=== PATIENT | female | born 1950 | race Caucasian/White ===

== ENCOUNTER 2017-10-19 01:31 | Emergency (ER) | payer OTHER ==
[2017-10-19 02:30] LABS: Protime INR 0.98
[2017-10-19 02:31] LABS: Absolute Lymphocytes (CBC) 2.2 K/uL (0.7-4.9); Absolute Monocytes 0.7 K/uL (0.1-1.3); Absolute Neutrophil 6.4 K/uL (1.8-8.0); Basophils % 1.2 % (0-1.3); Eosinophils % 3.7 % (0-4.4); Hematocrit 38.4 % (36.0-45.0); Lymphocytes % 22.9 % (15.3-44.8); MCH 26.8 pg (27.0-35.0); MCV 83.6 fL (80-100); MPV 9.3 fL (7.6-11.3); Monocytes % 7.3 % (3.3-12.3); RBC Red Blood Cell Count 4.59 M/uL (3.86-4.86)
[2017-10-19 02:39] LABS: Bicarbonate 26 mEq/L (21-31); Glucose Level 360 mg/dL (65-120); Potassium 3.7 mEq/L (3.6-5.0); Sodium Level 135 mEq/L (135-145)
[2017-10-19 02:45] LABS: ALT/SGPT 15 IU/L (10-60); AST/SGOT 19 IU/L (10-42); Albumin 3.4 g/dL (3.2-5.5); Alkaline Phosphatase 67 IU/L (42-121); BUN Blood Urea Nitrogen 23 mg/dL (6-20); Bilirubin Direct < 0.1 mg/dL (0-0.2); Bilirubin Total 0.5 mg/dL (0.3-1.2); Creatine Phosphokinase 61 IU/L (22-269); Magnesium 1.5 mg/dL (1.8-2.5); Protein, Total 7.1 g/dL (6.0-8.3)
[2017-10-19 02:48] LABS: CKMB Creatine Kinase MB 1.2 ng/ml (0.3-4.0)
--- NOTE | 2017-10-19 03:14 | ER ---
Nurse's Notes [facility] Name: Bertha Jones Age: 67 yrs Sex: Female : 1950 Arrival Date: 10/19/2017 Time: 01:34 Bed 6 Private MD: Diagnosis: Bronchitis, not specified as acute or chronic Presentation: 10/19 01:35 Presenting complaint: Patient states: that at 2200 last night she started to have fc shortness of breath. Also having some right arm numbness. Denies any nausea or vomiting. Transition of care: patient was not received from another setting of care. Onset of symptoms was October 18, 2017 at 22:00. Initial Sepsis Screen: Does the patient meet any 2 criteria? RR > 20 per min. Yes Does the patient have a suspected source of infection? No. Patient's initial sepsis screen is negative. Care prior to arrival: None. 01:35 Method Of Arrival: Ambulatory fc 01:35 Acuity: MACK 3 fc Historical: - Allergies: :53 No Known Allergies; fc - Home Meds: 01:53 amlodipine 10 mg tab 1 tab once daily [Active]; lisinopril 40 mg Oral tab 1 tab once fc daily [Active]; Zoloft 50 mg Oral tab 1 tab once daily [Active]; levothyroxine 88 mcg tab 1 tab once daily [Active]; aspirin 325 mg Oral TbEC 1 tab once daily [Active]; pravastatin 80 mg oral tab 1 tab nightly [Active]; Cymbalta 60 mg oral cpDR 1 cap nightly [Active]; pantoprazole 40 mg oral TbEC 1 tab nightly [Active]; gabapentin 300 mg oral cap 2 caps 3 times per day [Active]; melatonin 5 mg Oral tab as needed [Active]; Nasacort 55 mcg Nasal spra as needed [Active]; Vitamin B-12 1,000 mcg Oral tab daily [Active]; Vitamin D Oral 2000 unit daily [Active]; turmeric curcumin 1 tablet daily [Active]; biotin 10,000 mcg oral cap daily [Active]; - PMHx: 01:53 Diabetes - NIDDM; High Cholesterol; Hypertension; Diverticulitis; viral menigitus; fc Tachycardia; Hypothyroidism; Depression; - PSHx: 01:53 Cataracts; Hysterectomy; Cholecystectomy; fc - Immunization history:: Last tetanus immunization: up to date. - Social history:: Smoking status: Patient/guardian denies using tobacco, Patient/guardian denies using alcohol, street drugs, The patient lives with family. - Family history:: not pertinent. Screenin:35 Abuse screen: Denies threats or abuse. Nutritional screening: No deficits noted. fc Tuberculosis screening: No symptoms or risk factors identified. Fall Risk None identified. Assessment: 02:19 General: Appears in no apparent distress. Behavior is calm, cooperative, appropriate lp1 for age. Pain: Denies pain. Neuro: Level of Consciousness is awake, alert, obeys commands, Oriented to person, place, time, situation. Cardiovascular: Patient's skin is warm and dry. Respiratory: Reports shortness of breath cough that is productive, Airway is patent Respiratory effort is even, unlabored, Respiratory pattern is regular, symmetrical, Breath sounds are diminished bilaterally. Onset: The symptoms/episode began/occurred gradually, the patient has mild shortness of breath. GI: Abdomen is obese. : No signs and/or symptoms were reported regarding the genitourinary system. EENT: No signs and/or symptoms were reported regarding the EENT system. Derm: Skin is pink, warm \T\ dry. Musculoskeletal: Circulation, motion, and sensation intact. 03:38 Cardiovascular: Rhythm is regular. ak1 Vital Signs: 01:35 BP 155 / 76; Pulse 60; Resp 22; Temp 98.6(O); Pulse Ox 99% on R/A; Weight 95.25 kg (R); fc Height 5 ft. 5 in. (165.10 cm) (R); Pain 4/10; 03:37 BP 142 / 62; Pulse 53; Resp 18; Temp 98.6; Pulse Ox 99% on R/A; ak1 01:35 Body Mass Index 34.95 (95.25 kg, 165.10 cm) fc ED Course: 01:34 Patient arrived in ED. al2 01:35 Arm band placed on Patient placed in an exam room, on a stretcher. fc 01:35 Patient has correct armband on for positive identification. Placed in gown. Bed in low fc position. Call light in reach. 01:46 Triage completed. fc 01:56 Shahana Munson MD is Attending Physician. ma2 02:27 X-ray completed. Portable x-ray completed in exam room. Patient tolerated procedure kw well. 02:27 XRAY Chest (1 view) In Process Unspecified. EDMS 03:01 Melisa Hussein, RN is Primary Nurse. lp1 03:36 No provider procedures requiring assistance completed. Patient did not have IV access ak1 during this emergency room visit. Administered Medications: No medications were administered Outcome: 03:13 Discharge ordered by . ma2 03:38 Discharged to home ambulatory, with friend. ak1 03:38 Condition: good 03:38 Discharge instructions given to patient, friend, Instructed on discharge instructions, follow up and referral plans. medication usage, Demonstrated understanding of instructions, follow-up care, medications, Prescriptions given X 2. 03:39 Patient left the ED. ak1 Signatures: Dispatcher [employer] EDDE Bhavana Obregon RN RN fc Whitley, Kimberlee kw Pena, Laura, RN RN [email or web address] Zee Mcclendon RN RN [email or web address] Camilla Mckenna Mohammad, MD MD ma2 Corrections: (The following items were deleted from the chart) 02:23 02:19 Respiratory: Airway is patent Respiratory effort is even, unlabored, Respiratory lp1 pattern is regular, symmetrical, Breath sounds are diminished bilaterally. lp1 03:07 02:19 Respiratory: Airway is patent Respiratory effort is even, unlabored, Respiratory lp1 pattern is regular, symmetrical, Breath sounds are diminished bilaterally. Onset: The symptoms/episode began/occurred gradually, the patient has mild shortness of breath lp1
--- NOTE | 2017-10-19 03:14 | EDPHYS ---
Physician Documentation [facility] Name: Bertha Jones Age: 67 yrs Sex: Female : 1950 Arrival Date: 10/19/2017 Time: 01:34 Bed 6 Private MD: ED Physician Shahana Munson HPI: 10/19 02:16 This 67 yrs old Female presents to ER via Ambulatory with complaints of ma2 Breathing Difficulty, R ARM NUMBNESS. 02:16 The patient has shortness of breath with light activity. The patient has shortness of ma2 breath during heavy activity. Onset: The symptoms/episode began/occurred gradually, 1 day(s) ago. Duration: The symptoms are continuous. Associated signs and symptoms: Pertinent positives: non-productive cough, Pertinent negatives: chest pain. The patient has not experienced similar symptoms in the past. Historical: - Allergies: :53 No Known Allergies; fc - Home Meds: :53 amlodipine 10 mg tab 1 tab once daily [Active]; lisinopril 40 mg Oral tab 1 tab once fc daily [Active]; Zoloft 50 mg Oral tab 1 tab once daily [Active]; levothyroxine 88 mcg tab 1 tab once daily [Active]; aspirin 325 mg Oral TbEC 1 tab once daily [Active]; pravastatin 80 mg oral tab 1 tab nightly [Active]; Cymbalta 60 mg oral cpDR 1 cap nightly [Active]; pantoprazole 40 mg oral TbEC 1 tab nightly [Active]; gabapentin 300 mg oral cap 2 caps 3 times per day [Active]; melatonin 5 mg Oral tab as needed [Active]; Nasacort 55 mcg Nasal spra as needed [Active]; Vitamin B-12 1,000 mcg Oral tab daily [Active]; Vitamin D Oral 2000 unit daily [Active]; turmeric curcumin 1 tablet daily [Active]; biotin 10,000 mcg oral cap daily [Active]; - PMHx: 01:53 Diabetes - NIDDM; High Cholesterol; Hypertension; Diverticulitis; viral menigitus; fc Tachycardia; Hypothyroidism; Depression; - PSHx: 01:53 Cataracts; Hysterectomy; Cholecystectomy; fc - Immunization history:: Last tetanus immunization: up to date. - Social history:: Smoking status: Patient/guardian denies using tobacco, Patient/guardian denies using alcohol, street drugs, The patient lives with family. - Family history:: not pertinent. ROS: 02:16 Constitutional: Negative for fever, chills, and weight loss. ma2 02:16 Respiratory: Positive for cough, Negative for dyspnea on exertion, orthopnea, pleurisy, wheezing, acute changes. 02:16 All other systems are negative. Exam: 02:16 Constitutional: This is a well developed, well nourished patient who is awake, alert, ma2 and in no acute distress. Head/Face: Normocephalic, atraumatic. Chest/axilla: Normal chest wall appearance and motion. Nontender with no deformity. No lesions are appreciated. Cardiovascular: Regular rate and rhythm with a normal S1 and S2. No gallops, murmurs, or rubs. Normal PMI, no JVD. No pulse deficits. Respiratory: Lungs have equal breath sounds bilaterally, clear to auscultation and percussion. No rales, rhonchi or wheezes noted. No increased work of breathing, no retractions or nasal flaring. Abdomen/GI: Soft, non-tender, with normal bowel sounds. No distension or tympany. No guarding or rebound. No evidence of tenderness throughout. Neuro: Awake and alert, GCS 15, oriented to person, place, time, and situation. Cranial nerves II-XII grossly intact. Motor strength 5/5 in all extremities. Sensory grossly intact. Cerebellar exam normal. Normal gait. Vital Signs: 01:35 BP 155 / 76; Pulse 60; Resp 22; Temp 98.6(O); Pulse Ox 99% on R/A; Weight 95.25 kg (R); fc Height 5 ft. 5 in. (165.10 cm) (R); Pain 4/10; 03:37 BP 142 / 62; Pulse 53; Resp 18; Temp 98.6; Pulse Ox 99% on R/A; ak1 01:35 Body Mass Index 34.95 (95.25 kg, 165.10 cm) fc MDM: 01:56 Patient medically screened. ma2 02:16 Differential diagnosis: Anemia Anxiety Reaction Bronchitis CHF exacerbation, pneumonia, ma2 pulmonary edema. 03:12 Antibiotic administration: The patient is discharged and will get outpatient ma2 antibiotics, Zithromax. The patient's pulmonary embolism risk score was calculated as follows: No Risks (0 Pts). Data reviewed: vital signs, nurses notes, EKG, radiologic studies. Counseling: I had a detailed discussion with the patient and/or guardian regarding: the historical points, exam findings, and any diagnostic results supporting the discharge/admit diagnosis, the presence of at least one elevated blood pressure reading (>120/80) during this emergency department visit, the need for outpatient follow up, for definitive care. 10/19 02:11 Order name: Basic Metabolic Panel; Complete Time: 03:11 10/19 02:11 Order name: BNP 10/19 02:11 Order name: CBC with Diff; Complete Time: 03:11 10/19 02:11 Order name: Ckmb; Complete Time: 03:11 10/19 02:11 Order name: CPK; Complete Time: 03:11 10/19 02:11 Order name: LFT's; Complete Time: 03:11 10/19 02:11 Order name: Magnesium; Complete Time: 03:11 10/19 02:11 Order name: PT-INR; Complete Time: 03:11 10/19 02:11 Order name: Ptt, Activated; Complete Time: 03:11 10/19 02:11 Order name: Troponin (emerg Dept Use Only); Complete Time: 03:11 10/19 02:11 Order name: XRAY Chest (1 view) 10/19 02:11 Order name: EKG; Complete Time: 02:12 10/19 02:11 Order name: Cardiac monitoring; Complete Time: 03:01 10/19 02:11 Order name: EKG - Nurse/Tech; Complete Time: 03:01 10/19 02:11 Order name: Labs collected and sent; Complete Time: 03:10/19 02:11 Order name: O2 Per Protocol; Complete Time: 03:01 10/19 02:11 Order name: O2 Sat Monitoring; Complete Time: 03:01 Administered Medications: No medications were administered Disposition: 10/19/17 03:13 Discharged to Home. Impression: Bronchitis, not specified as acute or chronic. - Condition is Stable. - Discharge Instructions: Acute Bronchitis. - Prescriptions for Zithromax Z- Axel 250 mg Oral Tablet - take 1 tablet by ORAL route as directed for 5 days Day 1 - take two (2) tablets one time. Day 2, 3, 4 , 5 take one (1) tablet once daily.; 6 tablet. Albuterol Sulfate 90 mcg/actuation - inhale 1-2 puff by INHALATION route every 4-6 hours; 1 Inhaler. - Medication Reconciliation Form, Thank You Letter, Antibiotic Education, Prescription Opioid Use form. - Follow up: Private Physician; When: Tomorrow; Reason: Continuance of care. - Problem is new. - Symptoms are unchanged. Signatures: Dispatcher [employer] EDAK Bhavana Obregon RN RN Zee Arriola RN RN ak1 Shahana Munson MD MD ma2 Corrections: (The following items were deleted from the chart) 03:16 02:11 IV Saline Lock ordered. nc2 lp1 03:27 02:11 Urine Dipstick-Ancillary ordered. nc2 lp1 03:39 03:13 10/19/2017 03:13 Discharged to Home. Impression: Bronchitis, not specified as ak1 acute or chronic. Condition is Stable. Forms are Medication Reconciliation Form, Thank You Letter, Antibiotic Education, Prescription Opioid Use. Follow up: Private Physician; When: Tomorrow; Reason: Continuance of care. Problem is new. Symptoms are unchanged. ma2
[2017-10-19 03:43] VITALS: TEMP 98.6; O2SAT 99
[2017-10-19 03:44] VITALS: BP 142/62
--- NOTE | 2017-10-19 06:54 | EKG ---
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
--- NOTE | 2017-10-19 08:14 | RAD REPORT ---
EXAM DESCRIPTION: Mayra Single View10/19/2017 2:30 am CLINICAL HISTORY: Cough COMPARISON: February 2017 FINDINGS: The lungs appear clear of acute infiltrate. The heart is borderline enlarged IMPRESSION: No acute abnormalities displayed
== END 2017-10-19 03:39 | disposition home or self-care (01) ==
LOC: ER 01:31
DX: J40 Bronchitis, not specified as acute or chronic (principal); E03.9 Hypothyroidism, unspecified; I10 Essential (primary) hypertension; E11.9 Type 2 diabetes mellitus without complications; E78.00 Pure hypercholesterolemia, unspecified; Z79.82 Long term (current) use of aspirin
CPT/HCPCS: 36415; 71045; 80048; 80076; 82550; 82553; 83735; 83880; 84484; 85025; 85610; 85730; 93005; 99283

== ENCOUNTER 2018-02-09 18:07 | Inpatient (IN) | payer OTHER ==
--- NOTE | 2018-02-09 19:07 | RAD REPORT ---
EXAM DESCRIPTION: RAD - Chest Single View - 02/09/2018 6:47 pm CLINICAL HISTORY: DYSPNEA Chest pain. COMPARISON: Chest Single View dated 10/19/2017; Chest Single View dated 02/24/2017; CHEST PA AND LAT 2 VIEW dated 03/06/2014; CHEST SINGLE VIEW dated 11/20/2012 FINDINGS: Portable technique limits examination quality. Mild interstitial pulmonary opacities are present. The heart is mildly prominent size. No displaced f ractures. IMPRESSION: Mild interstitial pneumonia versus CHF.
[2018-02-09 19:50] LABS: Absolute Lymphocytes (CBC) 2.2 K/uL (0.7-4.9); Absolute Monocytes 0.9 K/uL (0.1-1.3); Absolute Neutrophil 6.1 K/uL (1.8-8.0); Basophils % 1.2 % (0-1.3); Eosinophils % 3.4 % (0-4.4); Hematocrit 33.8 % (36.0-45.0); Lymphocytes % 22.5 % (15.3-44.8); MCH 27.7 pg (27.0-35.0); MCV 84.3 fL (80-100); MPV 9.7 fL (7.6-11.3); Monocytes % 9.6 % (3.3-12.3)
[2018-02-09 19:52] LABS: Protime INR 1.05
[2018-02-09 20:09] LABS: Albumin 3.2 g/dL (3.4-5.0); Bilirubin Direct 0.2 mg/dL (0-0.2); Bilirubin Total 0.6 mg/dL (0.2-1.0); Magnesium 1.8 mg/dL (1.8-2.4); Protein, Total 7.7 g/dL (6.4-8.2)
--- NOTE | 2018-02-09 20:25 | ER ---
Nurse's Notes [facility] Name: Bertha Jones Age: 67 yrs Sex: Female : 1950 Arrival Date: 02/09/2018 Time: 18:11 Bed 16 Private MD: Rhys Taylor Diagnosis: Acute combined systolic (congestive) and diastolic (congestive) heart failure;Pneumonia due to other specified bacteria Presentation: 02/09 18:19 Presenting complaint: Patient states: january i was dx with pneumonia, since then ch i don't feel any better. SOB, cough, congestion, no energy, occasional pain in R side of chest, nausea, cough so hard i vomit. Transition of care: patient was not received from another setting of care. Onset of symptoms was January 15, 2018. Risk Assessment: Do you want to hurt yourself or someone else? Patient reports no desire to harm self or others. Initial Sepsis Screen: Does the patient meet any 2 criteria? No. Patient's initial sepsis screen is negative. Does the patient have a suspected source of infection? No. Patient's initial sepsis screen is negative. Care prior to arrival: None. 18:19 Method Of Arrival: Ambulatory 18:19 Acuity: MACK 3 ch Historical: - Allergies: 18:23 No Known Allergies; ch - Home Meds: 18:23 Albuterol Nebulizer [Active]; amlodipine 10 mg tab 1 tab once daily [Active]; aspirin ch 325 mg Oral TbEC 1 tab once daily [Active]; robitussin AC [Active]; gabapentin 300 mg Oral cap 2 caps 3 times per day [Active]; Humulin 70/30 100 unit/mL (70-30) Sub-Q susp [Active]; levofloxacin Oral [Active]; levothyroxine 88 mcg tab 1 tab once daily [Active]; lisinopril 40 mg Oral tab 1 tab once daily [Active]; metoprolol tartrate 100 mg Oral tab 1 tab once daily [Active]; Nasonex 50 mcg/actuation Nasal spry 2 sprays once daily [Active]; pantoprazole 40 mg oral TbEC 1 tab once daily [Active]; pravastatin 80 mg Oral tab 1 tab nightly [Active]; Robaxin 500 mg Oral tab 2 tabs 4 times per day [Active]; Zoloft 50 mg Oral tab 1 tab once daily [Active]; - PMHx: 18:23 Depression; Diabetes - NIDDM; Diverticulitis; High Cholesterol; Hypertension; ch Hypothyroidism; Tachycardia; viral menigitus; Pneumonia; - PSHx: 18:23 Cataracts; Hysterectomy; Cholecystectomy; ch - Immunization history:: Adult Immunizations up to date. - Social history:: Smoking status: Patient/guardian denies using tobacco, Patient/guardian denies using alcohol, street drugs. - Ebola Screening: : Patient negative for fever greater than or equal to 101.5 degrees Fahrenheit, and additional compatible Ebola Virus Disease symptoms Patient denies exposure to infectious person Patient denies travel to an Ebola-affected area in the 21 days before illness onset No symptoms or risks identified at this time. Screenin:00 Abuse screen: Denies threats or abuse. jb4 19:00 Nutritional screening: No deficits noted. Tuberculosis screening: No symptoms or risk jb4 factors identified. Fall Risk None identified. Assessment: 19:00 General: Appears in no apparent distress. comfortable, Behavior is calm, cooperative, jb4 appropriate for age. Pain: Denies pain. Neuro: Level of Consciousness is awake, alert, obeys commands, Oriented to person, place, time. Cardiovascular: Denies chest pain, Heart tones S1 S2 present Patient's skin is warm and dry. Rhythm is sinus rhythm. Respiratory: Reports shortness of breath on exertion cough that is non-productive, Airway is patent Respiratory effort is even, unlabored, Breath sounds are clear bilaterally. GI: Abdomen is round Bowel sounds present X 4 quads. Abd is soft and non tender X 4 quads. : No signs and/or symptoms were reported regarding the genitourinary system. EENT: No signs and/or symptoms were reported regarding the EENT system. Derm: Skin is intact, Skin is pink, warm \\T\\ dry. Musculoskeletal: No signs and/or symptoms reported regarding the musculoskeletal system. 20:00 Reassessment: Patient appears in no apparent distress at this time. Patient and/or aa1 family updated on plan of care and expected duration. Pain level reassessed. Patient is alert, oriented x 3, equal unlabored respirations, skin warm/dry/pink. Awaiting lab results. 21:29 Reassessment: Patient appears in no apparent distress at this time. Patient and/or aa1 family updated on plan of care and expected duration. Pain level reassessed. Patient is alert, oriented x 3, equal unlabored respirations, skin warm/dry/pink. Awaiting bed assignment. 21:45 Reassessment: Pt states "I feel weak and jittery like my blood sugar is low." BS was jb4 114. Pt reports the BS is low for her. Provider notified. Juice and snack provided. 23:00 Reassessment: Patient appears in no apparent distress at this time. Patient and/or jb4 family updated on plan of care and expected duration. Pain level reassessed. Patient is alert, oriented x 3, equal unlabored respirations, skin warm/dry/pink. Pt reports feeling better after juice and a snack. BS is 133. Vital Signs: 18:23 BP 137 / 68; Pulse 52; Resp 14; Temp 99.6; Pulse Ox 97% on R/A; Weight 93.89 kg; Height 5 ft. 5 in. (165.10 cm); Pain 5/10; 19:30 BP 127 / 61; Pulse 56; Resp 20; Pulse Ox 96% on 2 lpm NC; Pain 0/10; aa1 20:30 BP 146 / 93; Pulse 56; Resp 18; Pulse Ox 98% on 2 lpm NC; aa1 21:27 BP 144 / 76; Pulse 57; Resp 20; Temp 98.7; Pulse Ox 99% on 2 lpm NC; Pain 0/10; aa1 22:45 BP 161 / 82; Pulse 53; Resp 20; Pulse Ox 97% on 2 lpm NC; Pain 0/10; jb4 18:23 Body Mass Index 34.45 (93.89 kg, 165.10 cm) ED Course: 18:11 Patient arrived in ED. sb2 18:11 Rhys Taylor MD is Private Physician. sb2 18:20 Triage completed. 18:23 Arm band placed on left wrist. Patient placed in an exam room, on a stretcher. 18:27 Aristides Lawrence PA is PHCP. jr8 18:27 Joaquin Mukherjee MD is Attending Physician. jr8 18:45 XRAY Chest (1 view) In Process Unspecified. EDMS 18:47 X-ray completed. Portable x-ray completed in exam room. Patient tolerated procedure az well. 19:00 Patient has correct armband on for positive identification. Placed in gown. Bed in low jb4 position. Call light in reach. Side rails up X 1. hot dip plater on. Pulse ox on. NIBP on. 19:10 Initial lab(s) drawn, by me, sent to lab. Inserted saline lock: 20 gauge in left jb4 forearm, using aseptic technique. Blood collected. 20:25 Shahana Chester MD is Hospitalizing Provider. jr8 20:28 Griffin Aquino, RN is Primary Nurse. jb4 23:31 No provider procedures requiring assistance completed. Patient admitted, IV remains in jb4 place. Administered Medications: 20:35 Drug: Lasix 40 mg Route: IVP; Site: left forearm; jb4 21:34 Follow up: Response: No adverse reaction jb4 20:37 Drug: Rocephin 1 grams Route: IV; Rate: calculated rate; Site: left forearm; jb4 20:39 Follow up: IV Status: Completed infusion; given IVP per pharmacy protocol. jb4 21:34 Follow up: Response: No adverse reaction jb4 20:42 Drug: Zithromax 500 mg Route: IVPB; Infused Over: 1 hrs; Site: left forearm; jb4 21:55 Follow up: Response: No adverse reaction aa1 21:55 Follow up: IV Status: Completed infusion aa1 21:32 Drug: Lovenox 1 mg/kg Route: Sub-Q; Site: left lower abdomen; jb4 22:00 Follow up: Response: No adverse reaction aa1 Intake: Outcome: 20:25 Decision to Hospitalize by Provider. jr8 23:30 Admitted to Med/surg accompanied by nurse, via wheelchair, room 218, Report called to italo Matthews RN 23:30 Condition: stable jb 23:30 Instructed on the need for admit, Demonstrated understanding of instructions. 23:41 Patient left the ED. 4 Signatures: Dispatcher [employer] EDMS Yoko Cornejo RN RN ch Kern, Alissa, RN RN aa1 Aristides Lawrence PA PA jr8 Griffin Aquino RN RN jb4 Fadumo Coreas sb2 Angie Enriquez Corrections: (The following items were deleted from the chart) 21:35 19:00 Cardiovascular: Denies chest pain, Heart tones S1 S2 present Patient's skin is jb4 warm and dry. jb4 23:06 23:02 Reassessment: Patient appears in no apparent distress at this time. Patient jb4 and/or family updated on plan of care and expected duration. Pain level reassessed. Patient is alert, oriented x 3, equal unlabored respirations, skin warm/dry/pink. Pt reports feeling better after juice and snacks. BS is now 133. aa1 23:13 22:45 BP 161 / 82; Pulse 53bpm; Resp 18bpm; Pulse Ox 97% 2 lpm Nasal Cannula; Pain jb4 0/10; aa1
--- NOTE | 2018-02-09 20:25 | EDPHYS ---
Physician Documentation [facility] Name: Bertha Jones Age: 67 yrs Sex: Female : 1950 Arrival Date: 02/09/2018 Time: 18:11 Bed 16 Private MD: Rhys Taylor ED Physician Joaquin Mukherjee HPI: 02/09 20:00 This 67 yrs old Female presents to ER via Ambulatory with complaints of jr8 Breathing Difficulty, Chest Congestion, Fever. 20:00 The patient has shortness of breath at rest, with light activity. Onset: The jr8 symptoms/episode began/occurred gradually, 1 week(s) ago, and became worse and became persistent. Duration: The symptoms are continuous. The patient's shortness of breath is aggravated by coughing, walking. Associated signs and symptoms: Pertinent positives: productive cough, fever. Severity of symptoms: At their worst the symptoms were moderate in the emergency department the symptoms are unchanged. The patient has not experienced similar symptoms in the past. The patient has been recently seen by a physician:. Patient stated that she was treated for pneumonia earlier this month. Stated that she felt somewhat better but not completely back to normal. Stated that within the past week started to feel bad again and is now very short of breath. Recent travel to [place] . Historical: - Allergies: 18:23 No Known Allergies; ch - Home Meds: 18:23 Albuterol Nebulizer [Active]; amlodipine 10 mg tab 1 tab once daily [Active]; aspirin ch 325 mg Oral TbEC 1 tab once daily [Active]; robitussin AC [Active]; gabapentin 300 mg Oral cap 2 caps 3 times per day [Active]; Humulin 70/30 100 unit/mL (70-30) Sub-Q susp [Active]; levofloxacin Oral [Active]; levothyroxine 88 mcg tab 1 tab once daily [Active]; lisinopril 40 mg Oral tab 1 tab once daily [Active]; metoprolol tartrate 100 mg Oral tab 1 tab once daily [Active]; Nasonex 50 mcg/actuation Nasal spry 2 sprays once daily [Active]; pantoprazole 40 mg oral TbEC 1 tab once daily [Active]; pravastatin 80 mg Oral tab 1 tab nightly [Active]; Robaxin 500 mg Oral tab 2 tabs 4 times per day [Active]; Zoloft 50 mg Oral tab 1 tab once daily [Active]; - PMHx: 18:23 Depression; Diabetes - NIDDM; Diverticulitis; High Cholesterol; Hypertension; ch Hypothyroidism; Tachycardia; viral menigitus; Pneumonia; - PSHx: 18:23 Cataracts; Hysterectomy; Cholecystectomy; ch - Immunization history:: Adult Immunizations up to date. - Social history:: Smoking status: Patient/guardian denies using tobacco, Patient/guardian denies using alcohol, street drugs. - Ebola Screening: : Patient negative for fever greater than or equal to 101.5 degrees Fahrenheit, and additional compatible Ebola Virus Disease symptoms Patient denies exposure to infectious person Patient denies travel to an Ebola-affected area in the 21 days before illness onset No symptoms or risks identified at this time. ROS: 20:00 Eyes: Negative for injury, pain, redness, and discharge, ENT: Negative for injury, jr8 pain, and discharge, Neck: Negative for injury, pain, and swelling, Cardiovascular: Negative for chest pain, palpitations, and edema, Abdomen/GI: Negative for abdominal pain, nausea, vomiting, diarrhea, and constipation, Back: Negative for injury and pain, MS/Extremity: Negative for injury and deformity, Skin: Negative for injury, rash, and discoloration, Neuro: Negative for headache, weakness, numbness, tingling, and seizure. 20:00 Respiratory: Positive for cough, dyspnea on exertion, shortness of breath. Exam: 20:00 Eyes: Pupils equal round and reactive to light, extra-ocular motions intact. Lids and jr8 lashes normal. Conjunctiva and sclera are non-icteric and not injected. Cornea within normal limits. Periorbital areas with no swelling, redness, or edema. ENT: Nares patent. No nasal discharge, no septal abnormalities noted. Tympanic membranes are normal and external auditory canals are clear. Oropharynx with no redness, swelling, or masses, exudates, or evidence of obstruction, uvula midline. Mucous membranes moist. Neck: Trachea midline, no thyromegaly or masses palpated, and no cervical lymphadenopathy. Supple, full range of motion without nuchal rigidity, or vertebral point tenderness. No Meningismus. Cardiovascular: Regular rate and rhythm with a normal S1 and S2. No gallops, murmurs, or rubs. Normal PMI, no JVD. No pulse deficits. Abdomen/GI: Soft, non-tender, with normal bowel sounds. No distension or tympany. No guarding or rebound. No evidence of tenderness throughout. Back: No spinal tenderness. No costovertebral tenderness. Full range of motion. Skin: Warm, dry with normal turgor. Normal color with no rashes, no lesions, and no evidence of cellulitis. MS/ Extremity: Pulses equal, no cyanosis. Neurovascular intact. Full, normal range of motion. Neuro: Awake and alert, GCS 15, oriented to person, place, time, and situation. Cranial nerves II-XII grossly intact. Motor strength 5/5 in all extremities. Sensory grossly intact. Cerebellar exam normal. Normal gait. 20:00 Respiratory: the patient does not display signs of respiratory distress, Respirations: tachypnea, that is mild, Breath sounds: are clear throughout. Vital Signs: 18:23 BP 137 / 68; Pulse 52; Resp 14; Temp 99.6; Pulse Ox 97% on R/A; Weight 93.89 kg; Height ch 5 ft. 5 in. (165.10 cm); Pain 5/10; 19:30 BP 127 / 61; Pulse 56; Resp 20; Pulse Ox 96% on 2 lpm NC; Pain 0/10; aa1 20:30 BP 146 / 93; Pulse 56; Resp 18; Pulse Ox 98% on 2 lpm NC; aa1 21:27 BP 144 / 76; Pulse 57; Resp 20; Temp 98.7; Pulse Ox 99% on 2 lpm NC; Pain 0/10; aa1 22:45 BP 161 / 82; Pulse 53; Resp 20; Pulse Ox 97% on 2 lpm NC; Pain 0/10; jb4 18:23 Body Mass Index 34.45 (93.89 kg, 165.10 cm) ch MDM: 18:27 Patient medically screened. jr8 20:23 Data reviewed: vital signs, nurses notes, lab test result(s), radiologic studies, plain jr8 films, and as a result, I will admit patient. Data interpreted: Pulse oximetry: on room air is 97 %. Interpretation: normal. Counseling: I had a detailed discussion with the patient and/or guardian regarding: the historical points, exam findings, and any diagnostic results supporting the discharge/admit diagnosis, lab results, radiology results, the need for further work-up and treatment in the hospital. 02/09 18:28 Order name: Basic Metabolic Panel; Complete Time: 20:11 [facility] 02/09 18:28 Order name: CBC with Diff; Complete Time: 19:56 02/09 18:28 Order name: LFT's; Complete Time: 20:11 02/09 18:28 Order name: Magnesium; Complete Time: 20:11 [facility] 02/09 18:28 Order name: NT PRO-BNP; Complete Time: 20:11 02/09 18:28 Order name: PT-INR; Complete Time: 19:57 02/09 18:28 Order name: XRAY Chest (1 view); Complete Time: 19:33 02/09 18:28 Order name: Blood Culture Adult (2) 02/09 18:28 Order name: Procalcitonin; Complete Time: 21:24 02/09 19:33 Order name: Troponin (emerg Dept Use Only); Complete Time: 21:03 [facility] 02/09 21:03 Order name: Urine Dipstick--Ancillary (enter results); Complete Time: 21:24 mi 02/09 18:28 Order name: EKG; Complete Time: 18:29 02/09 18:28 Order name: Cardiac monitoring; Complete Time: 18:39 02/09 18:28 Order name: EKG - Nurse/Tech; Complete Time: 19:24 02/09 18:28 Order name: IV Saline Lock; Complete Time: 21:25 [facility] 02/09 18:28 Order name: Labs collected and sent; Complete Time: 21:26 02/09 18:28 Order name: O2 Per Protocol; Complete Time: 18:39 02/09 18:28 Order name: O2 Sat Monitoring; Complete Time: 18:39 02/09 18:28 Order name: Urine Dipstick-Ancillary (obtain specimen); Complete Time: 21:25 Administered Medications: 20:35 Drug: Lasix 40 mg Route: IVP; Site: left forearm; jb4 21:34 Follow up: Response: No adverse reaction jb4 20:37 Drug: Rocephin 1 grams Route: IV; Rate: calculated rate; Site: left forearm; jb4 20:39 Follow up: IV Status: Completed infusion; given IVP per pharmacy protocol. jb4 21:34 Follow up: Response: No adverse reaction jb4 20:42 Drug: Zithromax 500 mg Route: IVPB; Infused Over: 1 hrs; Site: left forearm; jb4 21:55 Follow up: Response: No adverse reaction aa1 21:55 Follow up: IV Status: Completed infusion aa1 21:32 Drug: Lovenox 1 mg/kg Route: Sub-Q; Site: left lower abdomen; jb4 22:00 Follow up: Response: No adverse reaction aa1 Disposition: 02/10 11:22 Co-signature as Attending Physician, Joaquin Mukherjee MD I agree with the assessment and kdr plan of care. Disposition: 02/09/18 20:25 Hospitalization ordered by Shahana Chester for Inpatient Admission. Preliminary diagnosis are Acute combined systolic (congestive) and diastolic (congestive) heart failure, Pneumonia due to other specified bacteria. - Bed requested for Telemetry/MedSurg (Inpatient). - Status is Inpatient Admission. jb4 - Condition is Fair. - Problem is new. - Symptoms have improved. UTI on Admission? No Signatures: Dispatcher [employer] EDMS Yoko Cornejo, Joaquin Ritter RN, ch, MD MD kdr Solis, Maria ms Roszak, Josh, PA PA jr8 Griffin Aquino RN RN jb4 Greer Sheets RN aa1 Corrections: (The following items were deleted from the chart) 02/09 22:43 20:25 Hospitalization Ordered by Shahana Chester MD for Inpatient Admission. Preliminary ms diagnosis is Acute combined systolic (congestive) and diastolic (congestive) heart failure; Pneumonia due to other specified bacteria. Bed requested for Telemetry/MedSurg (Inpatient). Status is Inpatient Admission. Condition is Fair. Problem is new. Symptoms have improved. UTI on Admission? No. jr8 23:41 22:43 02/09/2018 20:25 Hospitalization Ordered by Shahana Chester MD for Inpatient jb4 Admission. Preliminary diagnosis is Acute combined systolic (congestive) and diastolic (congestive) heart failure; Pneumonia due to other specified bacteria. Bed requested for Telemetry/MedSurg (Inpatient). Status is Inpatient Admission. Condition is Fair. Problem is new. Symptoms have improved. UTI on Admission? No. ms
[2018-02-09] MEDS ORDERED: AZITHROMYCIN 500 MG/250 ML BAG ONE (20:39)
[2018-02-09] MEDS ORDERED: FUROSEMIDE 40 MG/4 ML VIAL ONE (20:39)
[2018-02-09] MEDS ORDERED: CEFTRIAXONE/SWI 1gm 1 GM/10 ML SYR ONE (20:39)
[2018-02-09 21:18] LABS: Urine Blood NEGATIVE (NEG); Urine Glucose NEGATIVE (NEG); Urine Protein NEGATIVE (NEG)
[2018-02-09] MEDS ORDERED: ENOXAPARIN 100 MG/ML SYR SQ ONE (21:25)
[2018-02-09] MEDS ORDERED: ACETAMINOPHEN 500 MG TAB PO PRN (21:29)
[2018-02-09] MEDS ORDERED: ONDANSETRON 4 MG/2 ML VIAL IV PRN (21:29)
[2018-02-09] MEDS ORDERED: MORPHINE 2 MG/ML SYR IV PRN (21:29)
[2018-02-09] MEDS ORDERED: NA CHLORIDE 0.9% 1,000 ML IV SCH (22:00)
[2018-02-10 00:15] VITALS: BMI 34.4
[2018-02-10 04:49] LABS: Absolute Lymphocytes (CBC) 2.5 K/uL (0.7-4.9); Absolute Neutrophil 5.5 K/uL (1.8-8.0); Basophils % 0.5 % (0-1.3); Eosinophils % 3.1 % (0-4.4); Hematocrit 34.1 % (36.0-45.0); Lymphocytes % 26.4 % (15.3-44.8); MCH 27.2 pg (27.0-35.0); MCV 82.2 fL (80-100); MPV 9.3 fL (7.6-11.3); Monocytes % 10.4 % (3.3-12.3); RBC Red Blood Cell Count 4.16 M/uL (3.86-4.86)
[2018-02-10 05:14] LABS: Albumin 3.1 g/dL (3.4-5.0); Bilirubin Total 0.5 mg/dL (0.2-1.0); Potassium 3.6 mmol/L (3.5-5.1); Protein, Total 7.4 g/dL (6.4-8.2)
[2018-02-10] MEDS ORDERED: D5W 1,000 ML IV ONE (06:18)
[2018-02-10] MEDS ORDERED: SODIUM BICARB 50 MEQ/50ML VIAL ONE (06:22)
[2018-02-10] MEDS: D5W 1,000 ML with NA BICARB 8.4% 50 MEQ IV SCH ×4 (06:24→21:31)
--- NOTE | 2018-02-10 08:39 | P.HP ---
Certification for Inpatient Patient admitted to: Inpatient With expected LOS: >2 Midnights Patient will require the following post-hospital care: None Practitioner: I am a practitioner with admitting privileges, knowledge of patient current condition, hospital course, and medical plan of care. Services: Services provided to patient in accordance with Admission requirements found in Title 42 Section 412.3 of the Code of Federal Regulations Patient History Date of Service: 02/09/18 Reason for admission: Shortness of breath History of Present Illness: Patient is a 67-year-old female came to the hospital with difficulty breathing. Patient also has some swelling in her lower extremity. Patient was diagnose with a pneumonia January 15. This was done at an urgent care in [place]. She went to [place] to a wedding. She got back and she was feeling worse. She went to help her daughter out, and got light headed and short of breath. She was admitted to the hospital for further evaluation. Allergies No Known Drug Allergies Allergy (Verified 02/10/18 05:29) Unknown Home Medications: Amlodipine [Norvasc*] 1 tab PO DAILY 02/10/18 Aspirin 1 tab PO DAILY 02/10/18 Gabapentin [Neurontin*] 1 cap PO SEECOM 02/10/18 Insulin NPH Hum/Reg Insulin Hm [Humulin 70-30 Vial] 1 unit SQ SEECOM 02/10/18 Levothyroxine [Synthroid*] 1 tab PO DAILY 02/10/18 Lisinopril 1 tab PO DAILY 02/10/18 Metoprolol 100 mg PO DAILY 02/10/18 Pantoprazole [Protonix Tab*] 1 tab PO BEDTIME 02/10/18 Pravastatin Sodium 1 tab PO BEDTIME 02/10/18 Sertraline HCl 1 tab PO BEDTIME 02/10/18 - Past Medical/Surgical History Has patient received pneumonia vaccine in the past: Yes Diabetic: Yes -: DM -: diverticulitis -: high cholesterol -: HTN -: hypothyroidism -: tachycardia -: viral meningitis -: Pneumonia -: cholecystectomy -: hysterectomy -: cataract both eyes - Family History Father Medical History: Hypertension Notes: asbestosis Mother Medical History: Hypertension, Diabetes - Social History Smoking Status: Never smoker Alcohol use: No CD- Drugs: No Caffeine use: No Place of Residence: Home Review of Systems 10-point ROS is otherwise unremarkable Physical Examination - Vital Signs Temperature: 98.5 F Blood Pressure: 162/73 Pulse: 54 Respirations: 18 Pulse Ox (%): 94 - Physical Exam General: Alert, In no apparent distress, Oriented x3 HEENT: Atraumatic, PERRLA, Mucous membr. moist/pink, EOMI, Sclerae nonicteric Neck: Supple, 2+ carotid pulse no bruit, No LAD, Without JVD or thyroid abnormality Respiratory: Clear to auscultation bilaterally, Normal air movement Cardiovascular: Regular rate/rhythm, Normal S1 S2, No murmurs Gastrointestinal: Normal bowel sounds, Soft and benign, Non-distended, No tenderness Musculoskeletal: No clubbing, No swelling, No tenderness Integumentary: No rashes Neurological: Normal gait, Normal speech, Normal strength at 5/5 x4 extr, Normal tone, Sensation intact, Cranial nerves 3-12 intact, Normal affect Lymphatics: No axilla or inguinal lymphadenopathy - Studies Laboratory Data (last 24 hrs) 02/09/18 19:10: PT 12.4, INR 1.05 02/09/18 19:10: WBC 9.6, Hgb 11.1 L, Hct 33.8 L, Plt Count 235 02/09/18 19:10: Sodium 140, Potassium 4.0, BUN 20 H, Creatinine 1.40 H, Glucose 147 H, Magnesium 1.8, Total Bilirubin 0.6, AST 16, ALT 21, Alkaline Phosphatase 72 Assessment & Plan - Problems (Diagnosis) (1) Shortness of breath Current Visit: Yes Status: Acute (2) Community acquired bacterial pneumonia Current Visit: Yes Status: Acute (3) New onset of congestive heart failure Current Visit: Yes Status: Acute (4) Dyspnea Current Visit: Yes Status: Acute (5) Tachyarrhythmia Current Visit: Yes Status: Acute (6) Pneumonia Onset Date: 02/10/18 Current Visit: Yes Status: Acute - Plan Plan: 1. Continue with anti coagulation. D-dimer. Await for CT with PE protocol 2. Echocardiogram 3. IV antibiotics 4. Nebs as needed 5. Cultures x2 6. Gentle diuresing and blood pressure control 7. GI and DVT prophylaxis Discharge Plan: Home Plan to discharge in: Greater than 2 days - Advance Directives Does patient have a Living Will: Yes Does patient have a Durable POA for Healthcare: Yes - Code Status/Comfort Care Code Status Assessed: Yes Code Status: Full Code Critical Care: No Time Spent Managing PTS Care (In Minutes): 55
[2018-02-10] MEDS ORDERED: CEFTRIAXONE 1 GM/NS 50 ML 1 GM/50 ML BAG IV SCH (09:00)
[2018-02-10] MEDS ORDERED: METOPROLOL 50 MG PO SCH (09:00)
[2018-02-10] MEDS: LEVOTHYROXINE SOD 0.1 MG TAB PO SCH (09:32)
[2018-02-10] MEDS: ASPIRIN 325 MG TAB PO SCH (09:32)
[2018-02-10] MEDS: AMLODIPINE 10 MG TAB PO SCH (09:32)
[2018-02-10] MEDS: CEFTRIAXONE/SWI 1gm 1 GM/10 ML SYR IV SCH (09:33)
[2018-02-10] MEDS: AZITHROMYCIN IV 250 MG in NA CHLORIDE 0.9% 250 ML IVPB SCH (09:33)
--- NOTE | 2018-02-10 09:52 | RAD REPORT ---
EXAM DESCRIPTION: CT - Chest For Pe Angio - 02/10/2018 9:24 am CLINICAL HISTORY: dyspnea<Reason For Exam>dyspnea COMPARISON: <Comparisons>Chest Abd Pelvis Wo Con dated 02/25/2017; Chest Single View dated 02/09/2018 Chest film February 09 TECHNIQUE: Dynamically enhanced 3 mm thick images of the chest were obtained during administration o f approximately 150mL Isovue 370 IV contrast. Coronal and oblique MIP reconstruction images were gene rated and reviewed. Exam utilizes a protocol to evaluate the pulmonary arterial tree. All CT scans are performed using dose optimization technique as appropriate and may include automated exposure control or mA/KV adjustment according to patient size. FINDINGS: No pulmonary emboli are identified. The aorta as imaged shows no acute or suspicious finding. No pericardial thickening or effusion. No infiltrate or mass in the lung parenchyma. Lung markings are mildly prominent and could be mild ed marielena with interstitial infiltrate. Minimal bilateral pleural effusions. No pleural thickening or pleur al based mass. No mediastinal or hilar suspicious masses. No chest wall masses or abnormal axillary lymphadenopathy. IMPRESSION: No pulmonary emboli identified. Minimal bilateral pleural effusions.Mild interstitial edema or infiltrate.
[2018-02-10] MEDS ORDERED: FUROSEMIDE 20 MG/ 2ML VIAL IV ONE (10:00)
[2018-02-10 14:52] VITALS: O2SAT 93
--- NOTE | 2018-02-10 16:19 | EKG ---
Test Date: 2018-02-09 Test Time: 19:17:45 Landscape Architect: HAYLIE MEASUREMENT RESULTS: Intervals: Rate: 53 CT: 122 QRSD: 102 QT: 472 QTc: 442 Byers: P: 17 CT: 122 QRS: 35 T: 13 INTERPRETIVE STATEMENTS: Sinus bradycardia Incomplete right bundle branch block Borderline ECG Compared to ECG 10/19/2017 01:57:00 No significant changes Electronically Signed On 02-10-18 16:14:46 CDT by Enrrique Walsh
--- NOTE | 2018-02-10 16:48 | ECHO ---
HEIGHT: 5 ft 5 in WEIGHT: 207 lb 3 oz DATE OF STUDY: 02/10/[address]: Shahana Chester MD 2-DIMENSIONAL: YES M.MODE: YES DOPPLER: YES COLOR FLOW: YES TDS: PORTABLE: DEFINITY: BUBBLE STUDY: DIAGNOSIS: CONGESTIVE HEART FAILURE CARDIAC HISTORY: CATHERIZATION: NO SURGERY: NO PROSTHETIC VALVE: NO PACEMAKER: NO MEASUREMENTS (cm) DIASTOLIC (NORMALS) SYSTOLIC (NORMALS) IVSd 1.1 (0.6-1.2) LA Diam 4.3 (1.9-4.0) LVEF 79% LVIDd 5.2 (3.5-5.7) LVIDs 2.7 (2.0-3.5) %FS 48% LVPWd 1.2 (0.6-1.2) Ao Diam 2.9 (2.0-3.7) 2 DIMENSIONAL ASSESSMENT: RIGHT ATRIUM: NORMAL LEFT ATRIUM: NORMAL RIGHT VENTRICLE: NORMAL LEFT VENTRICLE: NORMAL TRICUSPID VALVE: NORMAL MITRAL VALVE: NORMAL PULMONIC VALVE: NORMAL AORTIC VALVE: NORMAL PERICARDIAL EFFUSION: NONE AORTIC ROOT: NORMAL LEFT VENTRICULAR WALL MOTION: NORMAL DOPPLER/COLOR FLOW: NORMAL COMMENTS: MILD TRICUSPID REGURGITATION. NORMAL LEFT VENTRICULAR SIZE AND FUNCTION. NO WALL MOTION ABNORMALITY. NO EFFUSION. TECHNOLOGIST: VISHAL SMART
[2018-02-10] MEDS ORDERED: D50W 25 GM/50 ML SYRINGE IV PRN (17:19)
[2018-02-10] MEDS ORDERED: GLUCAGON 1 MG/VIAL IM PRN (17:19)
[2018-02-10] MEDS: FUROSEMIDE 20 MG/ 2ML VIAL IV SCH (17:31)
--- NOTE | 2018-02-10 18:19 | PN ---
Date of Progress Note: 02/10/2018 Subjective: The patient is seen and examined. Chart reviewed and case discussed with RN. The patient states that her breathing is significantly better. Her swelling has gone down. Treatment plan explained. All questions answered. Family member present at bedside. Review of Systems: Negative except as above. Code status: full Medications: List reviewed. Physical Examination: Vital Signs: Temperature 98.5, heart rate 84, blood pressure 162/73, respirations 18, O2 94% on room air. General: Awake, alert, oriented x3, not in acute distress. Elderly female, obese, BMI 34.5. CV: S1, S2. No murmurs. Regular rate and rhythm. Peripheral pulses present. Respiratory: Moving air well bilaterally. No wheezing. Gastrointestinal: Abdomen is soft, nontender, nondistended. Positive bowel sounds. Extremities: No clubbing, cyanosis. Trace pedal edema. Neurologic: Nonfocal. Laboratory Data: Sodium 141, potassium 3.6, chloride 103, CO2 31, BUN 19, creatinine 1.3, glucose 118, calcium 8.8. WBC 9.3, H and H 11.3 and 34.1, platelets 234. D-dimer 845. UA is negative. CT angio chest personally reviewed, shows no PE, minimal bilateral pleural effusions, mild interstitial edema or infiltrates. Assessment And Plan: A 67-year-old female with: 1. Shortness of breath, likely secondary to chronic obstructive pulmonary disease and congestive heart failure, improving, now off supplemental oxygen. 2. Community-acquired pneumonia at the base. We will continue IV antibiotics , follow up on cultures. 3. New onset congestive heart failure. The patient has uncontrolled hypertension and diabetes. States that she has been told she has an enlarged heart. We will obtain echocardiogram. CT angio negative for pulmonary embolism. 4. Tachyarrhythmia, improving. 5. Essential hypertension, uncontrolled. We will resume home medications. 6. Diabetes mellitus type 2, insulin dependent. We will resume home dose. Check hemoglobin A1c. 7. Hyperlipidemia, mixed. We will continue statin. 8. Hypothyroidism. Continue levothyroxine. 9. Major depressive disorder, on SSRI. /YUKI Voice ID: [id number] Report ID: [id number] [facility] HOSPITALKushal
[2018-02-10] MEDS ORDERED: SERTRALINE HCL 50 MG TAB PO SCH (21:00)
[2018-02-10] MEDS ORDERED: ATORVASTATIN 10 MG TAB PO SCH (21:00)
[2018-02-10] MEDS: INSULIN -REGULAR HUMAN 50 UNIT/0.5 ML ML SQ SCH (21:00)
[2018-02-10] MEDS ORDERED: PANTOPRAZOLE 40MG TABLET PO SCH (21:00)
[2018-02-10] MEDS: GABAPENTIN 300 MG CAP PO SCH (21:31)
[2018-02-11 05:14] LABS: Absolute Lymphocytes (CBC) 2.5 K/uL (0.7-4.9); Absolute Monocytes 1.1 K/uL (0.1-1.3); Absolute Neutrophil 5.4 K/uL (1.8-8.0); Basophils % 0.6 % (0-1.3); Eosinophils % 3.1 % (0-4.4); Hematocrit 35.2 % (36.0-45.0); Lymphocytes % 26.9 % (15.3-44.8); MCH 27.8 pg (27.0-35.0); MCV 82.7 fL (80-100); Monocytes % 11.9 % (3.3-12.3); RBC Red Blood Cell Count 4.26 M/uL (3.86-4.86)
[2018-02-11 05:42] LABS: Albumin 3.2 g/dL (3.4-5.0); Bilirubin Total 0.5 mg/dL (0.2-1.0); Potassium 3.3 mmol/L (3.5-5.1); Protein, Total 7.5 g/dL (6.4-8.2)
[2018-02-11] MEDS: FUROSEMIDE 20 MG/ 2ML VIAL IV SCH (06:19)
[2018-02-11] MEDS: INSULIN -REGULAR HUMAN 50 UNIT/0.5 ML ML SQ SCH ×2 (07:30→11:30)
[2018-02-11] MEDS: AMLODIPINE 10 MG TAB PO SCH (08:57)
[2018-02-11] MEDS: GABAPENTIN 300 MG CAP PO SCH (08:57)
[2018-02-11] MEDS: CEFTRIAXONE/SWI 1gm 1 GM/10 ML SYR IV SCH (08:57)
[2018-02-11] MEDS: ASPIRIN 325 MG TAB PO SCH (08:57)
[2018-02-11] MEDS: LEVOTHYROXINE SOD 0.1 MG TAB PO SCH (08:58)
[2018-02-11] MEDS ORDERED: METOPROLOL TAR 50 MG TAB PO SCH (09:00)
[2018-02-11] MEDS: AZITHROMYCIN IV 250 MG in NA CHLORIDE 0.9% 250 ML IVPB SCH (09:03)
[2018-02-11] MEDS ORDERED: POTASSIUM CL SA 10 MEQ TAB PO ONE ×2 (09:47→10:55)
[2018-02-11 14:49] VITALS: BP 119/60; TEMP 97
--- NOTE | 2018-02-12 07:03 | DS ---
Date of Discharge: 02/11/2018 Admitting Diagnoses: 1.Shortness of breath. 2.Community-acquired bacterial pneumonia. 3.New-onset congestive heart failure. 4.Tachyarrhythmia. 5.Obesity, BMI 34. Discharge Diagnoses: 1.Shortness of breath, improved secondary to congestive heart failure and pneumonia. 2.Community-acquired bacterial pneumonia. Failed outpatient treatment, improving. 3.New-onset congestive heart failure, diastolic dysfunction, EF 79%. 4.Tachyarrhythmia, resolved. 5.Essential hypertension, uncontrolled. Medications adjusted. 6.Diabetes mellitus type 2, insulin dependent with hyperglycemia. 7.Mixed hyperlipidemia, statin. 8.Hypothyroidism, on Synthroid. 9.Major depressive disorder, on SSRI. 10.Acute kidney injury. 11.Hypokalemia, corrected. Hospital Course: The patient is a 67-year-old female who came into the hospital with difficulty steffanie thing. The patient had failed outpatient treatment for pneumonia. She was started on IV antibiotics . Her imaging studies including CT angio of the chest showed no PE, but did show some minimal bilate ral pleural effusions and mild interstitial edema or infiltrate. Her BNP was elevated at 1400. She was thought to have new onset CHF. The patient was started on Lasix. Her lisinopril was held due to elevated creatinine. Creatinine normalized, however, then bumped up again likely due to the diureti cs. The patient otherwise did well. Her breathing improved. Her vital signs remained stable. Her heart rate remained stable. She was saturating greater than 93% on room air. She did have some mild hypokalemia due to the Lasix, which was replaced. The patient's blood cultures remained negative. The patient had echocardiogram done, which showed EF of 79%. No wall motion abnormality. No pericar dial effusion. The patient was counseled regarding her CHF. She will be on a fluid restricted low-s odium diet. Activity: As tolerated. Medications: As per medication reconciliation list. The patient to decrease her dose of lisinopril and to hold lisinopril until next week after repeat BMP when her creatinine is normal to resume it. She will finish a course of antibiotics with doxycycline for treatment of her pneumonia. She will be on Lasix going forward and protein supplementation. Followup: The patient to follow up with PCP in 2 to [address] Taylor, however, req uesting to change PCP to physician who still rounds in the hospital. Social Work has been consulted to provide list of PCPs who still come to the hospital. I did recommend a few to her as well. She i s free to choose whoever she wishes. Follow up with licensed plumber, Dr. Walsh in 2 weeks for CHF. R eturn to ER for worsening condition. Repeat BMP in 1 week. Total time spent discharging the patient was 41 minutes. Physical Examination: General: Awake, alert, oriented, in no acute distress. CV: S1, S2. No murmurs. Respiratory: Moving air well bilaterally. No wheezing. Gastrointestinal: Abdomen soft, nontender, nondistended. Positive bowel sounds. Extremities: No clubbing, cyanosis, edema. Neurologic: Nonfocal. SA/MODL Voice ID: [id number] Report ID: [id number]
== END 2018-02-11 15:09 | disposition home or self-care (01) | DRG 291 ==
LOC: ER 18:07 → ERHOLD 21:16 → 2ND 23:13
PROVIDERS: ADMIT Hospitalist; ATTEND Hospitalist
DX: I50.31 Acute diastolic (congestive) heart failure (principal); J15.9 Unspecified bacterial pneumonia; N17.9 Acute kidney failure, unspecified; I11.0 Hypertensive heart disease with heart failure; R00.0 Tachycardia, unspecified; E11.65 Type 2 diabetes mellitus with hyperglycemia; E03.9 Hypothyroidism, unspecified; E87.6 Hypokalemia; E78.2 Mixed hyperlipidemia; F32.9 Major depressive disorder, single episode, unspecified; E66.9 Obesity, unspecified; Z68.34 Body mass index [BMI] 34.0-34.9, adult
CPT/HCPCS: 36415; 71045; 71275; 80048; 80053; 80076; 81003; 82962; 83735; 83880; 84145; 84484; 85025; 85379; 85610; 87040; 93005; 93306; 96365; 96372; 96375; 99285; J0456; J0696; J1650; J1940; J2270; J7030; Q9967

== ENCOUNTER 2018-09-10 12:18 | Emergency (ER) | payer OTHER ==
[2018-09-10] MEDS ORDERED: NA CHLORIDE 0.9% 1,000 ML ONE (13:28)
[2018-09-10 13:35] LABS: Absolute Lymphocytes (CBC) 1.2 K/uL (0.7-4.9); Absolute Monocytes 1.1 K/uL (0.1-1.3); Absolute Neutrophil 11.1 K/uL (1.8-8.0); Basophils % 0.4 % (0-1.3); Eosinophils % 0.4 % (0-4.4); Hematocrit 35.6 % (36.0-45.0); Lymphocytes % 9.1 % (15.3-44.8); MPV 8.3 fL (7.6-11.3); Monocytes % 8.1 % (3.3-12.3); RBC Red Blood Cell Count 4.35 M/uL (3.86-4.86)
[2018-09-10 13:57] LABS: Albumin 2.9 g/dL (3.4-5.0); Bilirubin Direct 0.3 mg/dL (0-0.2); Bilirubin Total 0.8 mg/dL (0.2-1.0); Protein, Total 7.4 g/dL (6.4-8.2)
--- NOTE | 2018-09-10 14:45 | RAD REPORT ---
EXAM DESCRIPTION: Mayra Nieves (2 Views)09/10/2018 2:37 pm CLINICAL HISTORY: Cough COMPARISON: January 2018 FINDINGS: The lungs appear clear of acute infiltrate. The heart is mildly to moderately enlarged IMPRESSION: No acute abnormalities displayed
--- NOTE | 2018-09-10 14:52 | RAD REPORT ---
EXAM DESCRIPTION: CT - Abdomen Pelvis Wo Contrast - 09/10/2018 2:28 pm CLINICAL HISTORY: Abdominal pain vomiting and diarrhea COMPARISON: None TECHNIQUE: Computed axial tomography of the abdomen and pelvis was obtained. IV and oral contrast we re not requested. All CT scans are performed using dose optimization technique as appropriate and may include automated exposure control or mA/KV adjustment according to patient size. FINDINGS: The evaluation of solid organs, vessels and bowel is limited secondary to the lack of con trast administration. The liver, pancreas, adrenals and kidneys appear grossly normal. 14 millimeter splenic low-density mass probably a cyst. Diverticula stem from the colon without evidence diverticulitis. An adnexal mass is not noted. The appendix was not visualized Small umbilical hernia. Gallbladder has been removed IMPRESSION: No acute abnormality is displayed.
[2018-09-10 15:46] LABS: Urine Bacteria <20 /HPF (<20); Urine Culture Reflex Order REFLEXED; Urine RBC <5 /HPF (NONE SEEN)
--- NOTE | 2018-09-10 16:00 | EDPHYS ---
Physician Documentation [facility] Name: Bertha Jones Age: 68 yrs Sex: Female : 1950 Arrival Date: 09/10/2018 Time: 12:21 Bed 24 Private MD: Rhys Taylor ED Physician Binu De Luna HPI: 09/10 14:00 This 68 yrs old Female presents to ER via Ambulatory with complaints of pm1 Nausea/Vomiting/Diarrhea, Fever, Cough. 14:00 The patient presents to the emergency department with nausea, vomiting, diarrhea, pm1 abdominal pain, of the left lower quadrant, described as crampy, and does not radiate. Onset: The symptoms/episode began/occurred diarrhea for 2 weeks and cough for 2 days. Possible causes: unknown. The symptoms are aggravated by nothing. The symptoms are alleviated by nothing. Associated signs and symptoms: Pertinent positives: dysuria, fever. The patient has been recently seen at an urgent care, just prior to arrival, for similar complaints, flu swab negative. Historical: - Allergies: 12:46 No Known Allergies; sg - Home Meds: 12:57 Albuterol Inhl [Active]; amlodipine 10 mg tab 1 tab once daily [Active]; aspirin 325 mg tw2 Oral TbEC 1 tab once daily [Active]; biotin 10,000 mcg Oral cap daily [Active]; Cymbalta 60 mg Oral cpDR 1 cap nightly [Active]; gabapentin 300 mg Oral cap 2 caps 3 times per day [Active]; Humulin 70/30 100 unit/mL (70-30) Sub-Q susp [Active]; levothyroxine 88 mcg tab 1 tab once daily [Active]; lisinopril 40 mg Oral tab 1 tab once daily [Active]; melatonin 5 mg Oral tab as needed [Active]; metoprolol tartrate 100 mg Oral tab 1 tab once daily [Active]; pantoprazole 40 mg Oral TbEC 1 tab nightly [Active]; pantoprazole 40 mg Oral TbEC 1 tab once daily [Active]; pravastatin 80 mg Oral tab 1 tab nightly [Active]; Zoloft 50 mg Oral tab 1 tab once daily [Active]; - PMHx: 12:46 Depression; Diabetes - NIDDM; Diverticulitis; High Cholesterol; Hypertension; sg Hypothyroidism; Pneumonia; Tachycardia; viral menigitus; - PSHx: 12:46 Cataracts; Hysterectomy; Cholecystectomy; sg - Immunization history:: Adult Immunizations up to date, Adult Immunizations. - Social history:: Smoking status: Patient/guardian denies using tobacco, Smoking status: . - Ebola Screening: : Patient negative for fever greater than or equal to 101.5 degrees Fahrenheit, and additional compatible Ebola Virus Disease symptoms Patient denies exposure to infectious person Patient denies travel to an Ebola-affected area in the 21 days before illness onset No symptoms or risks identified at this time Patient denies travel to an Ebola-affected area in the 21 days before illness onset. ROS: 14:00 Eyes: Negative for injury, pain, redness, and discharge, ENT: Negative for injury, pm1 pain, and discharge. 14:00 Neck: Negative for injury, pain, and swelling, Cardiovascular: Negative for chest pain, palpitations, and edema. 14:00 Back: Negative for injury and pain, : Negative for injury, bleeding, discharge, and swelling, MS/Extremity: Negative for injury and deformity, Skin: Negative for injury, rash, and discoloration, Neuro: Negative for headache, weakness, numbness, tingling, and seizure. 14:00 Constitutional: Positive for fever, Negative for body aches. 14:00 Respiratory: Positive for cough, with yellow sputum, Negative for shortness of breath, wheezing. 14:00 Abdomen/GI: Positive for abdominal pain, nausea, vomiting, and diarrhea, of the left lower quadrant. Exam: 14:00 Constitutional: This is a well developed, well nourished patient who is awake, alert, pm1 and in no acute distress. Head/Face: Normocephalic, atraumatic. Eyes: Pupils equal round and reactive to light, extra-ocular motions intact. Lids and lashes normal. Conjunctiva and sclera are non-icteric and not injected. Cornea within normal limits. Periorbital areas with no swelling, redness, or edema. ENT: Nares patent. No nasal discharge, no septal abnormalities noted. Tympanic membranes are normal and external auditory canals are clear. Oropharynx with no redness, swelling, or masses, exudates, or evidence of obstruction, uvula midline. Mucous membranes moist. Neck: Trachea midline, no thyromegaly or masses palpated, and no cervical lymphadenopathy. Supple, full range of motion without nuchal rigidity, or vertebral point tenderness. No Meningismus. Chest/axilla: Normal chest wall appearance and motion. Nontender with no deformity. No lesions are appreciated. Cardiovascular: Regular rate and rhythm with a normal S1 and S2. No gallops, murmurs, or rubs. Normal PMI, no JVD. No pulse deficits. Respiratory: Lungs have equal breath sounds bilaterally, clear to auscultation and percussion. No rales, rhonchi or wheezes noted. No increased work of breathing, no retractions or nasal flaring. 14:00 Back: No spinal tenderness. No costovertebral tenderness. Full range of motion. Skin: Warm, dry with normal turgor. Normal color with no rashes, no lesions, and no evidence of cellulitis. MS/ Extremity: Pulses equal, no cyanosis. Neurovascular intact. Full, normal range of motion. 14:00 Abdomen/GI: Inspection: abdomen appears normal, Bowel sounds: normal, Palpation: soft, mild abdominal tenderness, in the left lower quadrant, mass, is not appreciated, rebound tenderness, is not appreciated. 14:00 Neuro: Orientation: is normal, Motor: is normal, moves all fours, Sensation: is normal, no obvious gross deficits, Gait: is steady, at a normal pace, without difficulty. Vital Signs: 12:44 BP 122 / 66; Pulse 88; Resp 20; Temp 99.4; Pulse Ox 92% on R/A; Weight 85.73 kg; Pain sg 3/10; 13:08 BP 126 / 69; Pulse 57; Resp 22; Pulse Ox 97% on 2 lpm NC; tw2 14:20 BP 121 / 99; Pulse 56; Resp 17; Pulse Ox 98% on 2 lpm NC; tw2 15:19 BP 135 / 59; Pulse 57; Resp 17; Pulse Ox 97% on 2 lpm NC; tw2 16:17 BP 126 / 65 Supine; Pulse 58; Resp 17; Pulse Ox 97% on R/A; tw2 MDM: 13:11 Patient medically screened. pm1 15:50 Data reviewed: vital signs. Data interpreted: Pulse oximetry: on room air is 97 %. pm1 Interpretation: normal. Counseling: I had a detailed discussion with the patient and/or guardian regarding: the historical points, exam findings, and any diagnostic results supporting the discharge/admit diagnosis, lab results, the need for outpatient follow up, to return to the emergency department if symptoms worsen or persist or if there are any questions or concerns that arise at home. 09/10 13:12 Order name: Basic Metabolic Panel; Complete Time: 13:58 pm1 09/10 13:12 Order name: CBC with Diff; Complete Time: 13:58 pm1 09/10 13:12 Order name: Creatinine for Radiology; Complete Time: 13:58 pm1 09/10 13:12 Order name: Hepatic Function; Complete Time: 13:58 pm1 09/10 13:12 Order name: Lipase; Complete Time: 13:58 pm1 09/10 13:12 Order name: Urine Microscopic Only; Complete Time: 15:50 pm1 09/10 13:48 Order name: Glucose, Ancillary Testing; Complete Time: 13:58 EDMS 09/10 14:12 Order name: Stool Culture pm1 09/10 14:12 Order name: Ova And Parasites pm1 09/10 14:12 Order name: Fecal Leukocyte Stain pm1 09/10 14:12 Order name: CDIFF pm1 09/10 15:23 Order name: Urine Dipstick--Ancillary (enter results) eb 09/10 15:49 Order name: Urine Culture EDMS 09/10 12:58 Order name: Blood Glucose Level; Complete Time: 12:58 tw2 09/10 13:12 Order name: IV Saline Lock; Complete Time: 13:25 pm1 09/10 13:12 Order name: Labs collected and sent; Complete Time: 13:25 pm1 09/10 13:12 Order name: Urine Dipstick-Ancillary (obtain specimen); Complete Time: 15:10 pm1 09/10 14:24 Order name: Chest Pa And Lat (2 Views) XRAY; Complete Time: 14:49 pm1 09/10 14:27 Order name: Abdomen ; Complete Time: 14:56 EDMS Administered Medications: 13:20 Drug: NS 0.9% 1000 ml Route: IV; Rate: 1000 ml; Site: right antecubital; tw2 16:25 Follow up: Response: No adverse reaction; IV Status: Completed infusion; IV Intake: tw2 1000ml 16:08 Drug: Rocephin 1 grams Route: IV; Rate: calculated rate; Site: right antecubital; tw2 16:12 Follow up: Response: No adverse reaction; IV Status: Completed infusion tw2 Point of Care Testing: Blood Glucose: 12:53 Blood Glucose: 294 mg/dL; tw2 12:53 provider notified. tw2 Ranges: Critical Glucose Levels:Adult <50 mg/dl or >400 mg/dl <40 mg/dl or >180 mg/dl Disposition: 17:55 Co-signature as Attending Physician, Binu De Luna MD. rn Disposition: 09/10/18 15:59 Discharged to Home. Impression: Diarrhea, unspecified, Urinary tract infection, site not specified, Acute upper respiratory infection, unspecified. - Condition is Stable. - Discharge Instructions: Food Choices to Help Relieve Diarrhea, Adult, Diarrhea, Adult, Urinary Tract Infection, Adult, Viral Respiratory Infection. - Prescriptions for Macrobid 100 mg Oral Capsule - take 1 capsule by ORAL route every 12 hours for 10 days; 20 capsule. Zofran 4 mg Oral Tablet - take 1 tablet by ORAL route every 12 hours As needed; 20 tablet. - Medication Reconciliation Form, Thank You Letter, Antibiotic Education, Prescription Opioid Use form. - Follow up: Emergency Department; When: As needed; Reason: Worsening of condition. Follow up: Private Physician; When: 2 - 3 days; Reason: Recheck today's complaints, Continuance of care, Re-evaluation by your physician. - Problem is new. - Symptoms have improved. Signatures: Dispatcher [employer] [facility] Osmin Vaughn RN RN sg Nieto, Roman, MD MD rn Marinas, Patrick, ELISE MERCHANDISE PICKUP/RECEIVING ASSOCIATE pm1 Na Shirley RN RN tw2 Corrections: (The following items were deleted from the chart) 14:27 13:13 Abdomen Pelvis W Con+[id number].[id number] ordered. [facility] 16:26 15:59 09/10/2018 15:59 Discharged to Home. Impression: Diarrhea, unspecified; Urinary tw2 tract infection, site not specified; Acute upper respiratory infection, unspecified. Condition is Stable. Forms are Medication Reconciliation Form, Thank You Letter, Antibiotic Education, Prescription Opioid Use. Follow up: Emergency Department; When: As needed; Reason: Worsening of condition. Follow up: Private Physician; When: 2 - 3 days; Reason: Recheck today's complaints, Continuance of care, Re-evaluation by your physician. Problem is new. Symptoms have improved. pm1
--- NOTE | 2018-09-10 16:00 | ER ---
Nurse's Notes [facility] Name: Bertha Jones Age: 68 yrs Sex: Female : 1950 Arrival Date: 09/10/2018 Time: 12:21 Bed 24 Private MD: Rhys Taylor Diagnosis: Diarrhea, unspecified;Urinary tract infection, site not specified;Acute upper respiratory infection, unspecified Presentation: 09/10 12:42 Presenting complaint: Patient states: [facility], pt states she sg has had N/V/D for 2 weeks, had fever with chills last night with TMAX of 102.9, pt reports has not been able to take her medications due to not eating normally, productive cough for 2 days at least, pt complains of feeling weak. Transition of care: patient was not received from another setting of care. Onset of symptoms was September 10, 2018. Risk Assessment: Do you want to hurt yourself or someone else? Patient reports no desire to harm self or others. Initial Sepsis Screen: Does the patient meet any 2 criteria? No. Patient's initial sepsis screen is negative. Does the patient have a suspected source of infection? Yes: Productive cough/pneumonia. Care prior to arrival: None. 12:42 Method Of Arrival: Ambulatory sg 12:42 Acuity: MACK 3 sg Historical: - Allergies: 12:46 No Known Allergies; sg - Home Meds: 12:57 Albuterol Inhl [Active]; amlodipine 10 mg tab 1 tab once daily [Active]; aspirin 325 mg tw2 Oral TbEC 1 tab once daily [Active]; biotin 10,000 mcg Oral cap daily [Active]; Cymbalta 60 mg Oral cpDR 1 cap nightly [Active]; gabapentin 300 mg Oral cap 2 caps 3 times per day [Active]; Humulin 70/30 100 unit/mL (70-30) Sub-Q susp [Active]; levothyroxine 88 mcg tab 1 tab once daily [Active]; lisinopril 40 mg Oral tab 1 tab once daily [Active]; melatonin 5 mg Oral tab as needed [Active]; metoprolol tartrate 100 mg Oral tab 1 tab once daily [Active]; pantoprazole 40 mg Oral TbEC 1 tab nightly [Active]; pantoprazole 40 mg Oral TbEC 1 tab once daily [Active]; pravastatin 80 mg Oral tab 1 tab nightly [Active]; Zoloft 50 mg Oral tab 1 tab once daily [Active]; - PMHx: 12:46 Depression; Diabetes - NIDDM; Diverticulitis; High Cholesterol; Hypertension; sg Hypothyroidism; Pneumonia; Tachycardia; viral menigitus; - PSHx: 12:46 Cataracts; Hysterectomy; Cholecystectomy; sg - Immunization history:: Adult Immunizations up to date, Adult Immunizations. - Social history:: Smoking status: Patient/guardian denies using tobacco, Smoking status: . - Ebola Screening: : Patient negative for fever greater than or equal to 101.5 degrees Fahrenheit, and additional compatible Ebola Virus Disease symptoms Patient denies exposure to infectious person Patient denies travel to an Ebola-affected area in the 21 days before illness onset No symptoms or risks identified at this time Patient denies travel to an Ebola-affected area in the 21 days before illness onset. Screenin:44 Abuse screen: Denies threats or abuse. Nutritional screening: No deficits noted. tw2 Tuberculosis screening: No symptoms or risk factors identified. Fall Risk Secondary diagnosis (15 points) impaired mobility. Assessment: 12:54 General: Appears in no apparent distress. Behavior is calm, cooperative, appropriate tw2 for age. Pain: Denies pain. Neuro: Level of Consciousness is awake, alert, obeys commands, Oriented to person, place, time, situation. Cardiovascular: Denies chest pain, Heart tones S1 S2 Patient's skin is warm and dry. Respiratory: Reports shortness of breath Airway is patent Respiratory effort is even, unlabored, Respiratory pattern is regular, symmetrical, Breath sounds are clear bilaterally. GI: Abdomen is round non-distended, obese, Bowel sounds present X 4 quads. Abd is soft X 4 quads Reports diarrhea, nausea, vomiting, for 3 weeks. : No signs and/or symptoms were reported regarding the genitourinary system. EENT: No signs and/or symptoms were reported regarding the EENT system. Derm: Skin is pale. Musculoskeletal: Range of motion: intact in all extremities. 12:57 Reassessment: pt reports not checking "my blood sugar or taking my insulin because i tw2 havent been able to keep anything down for a while and i will bottom out if i take it.". 14:20 Reassessment: Patient appears in no apparent distress at this time. No changes from tw2 previously documented assessment. Patient and/or family updated on plan of care and expected duration. Pain level reassessed. 15:19 Reassessment: Patient appears in no apparent distress at this time. No changes from tw2 previously documented assessment. Patient and/or family updated on plan of care and expected duration. Pain level reassessed. 16:18 Reassessment: Patient appears in no apparent distress at this time. No changes from tw2 previously documented assessment. Patient and/or family updated on plan of care and expected duration. Pain level reassessed. Vital Signs: 12:44 BP 122 / 66; Pulse 88; Resp 20; Temp 99.4; Pulse Ox 92% on R/A; Weight 85.73 kg; Pain sg 3/10; 13:08 BP 126 / 69; Pulse 57; Resp 22; Pulse Ox 97% on 2 lpm NC; tw2 14:20 BP 121 / 99; Pulse 56; Resp 17; Pulse Ox 98% on 2 lpm NC; tw2 15:19 BP 135 / 59; Pulse 57; Resp 17; Pulse Ox 97% on 2 lpm NC; tw2 16:17 BP 126 / 65 Supine; Pulse 58; Resp 17; Pulse Ox 97% on R/A; tw2 ED Course: 12:21 Patient arrived in ED. mr 12:21 Rhys Taylor MD is Private Physician. mr 12:43 Dudley Urrutia, ELISE is PHCP. pm1 12:43 Binu De Luna MD is Attending Physician. pm1 12:43 Na Shirley, SURAJ is Primary Nurse. tw2 12:44 Triage completed. sg 12:44 Arm band placed on. tw2 12:44 Arm band placed on. sg 12:44 Placed in gown. Bed in low position. Call light in reach. monitoring analyst on. Pulse ox tw2 on. NIBP on. Warm blanket given. 13:26 Inserted saline lock: 22 gauge in right antecubital area, using aseptic technique. tw2 Blood collected. 14:00 Stool sample was collected and sent to lab. jp3 14:15 Lights dimmed. jp3 14:27 Stool Culture Sent. jp3 14:27 Ova And Parasites Sent. jp3 14:27 Fecal Leukocyte Stain Sent. jp3 14:27 CDIFF Sent. jp3 14:28 Abdomen In Process Unspecified. EDMS 14:38 Chest Pa And Lat (2 Views) XRAY In Process Unspecified. EDMS 14:40 X-ray completed. Patient tolerated procedure well. Patient moved back from radiology. 15:00 Urine collected: clean catch specimen, clear, barrett colored, Amount Voided: 110mL. jp3 15:10 Urine Microscopic Only Sent. jp3 16:16 Awaiting: completion of IV fluids prior to discharge. tw2 16:25 No provider procedures requiring assistance completed. IV discontinued, intact, tw2 bleeding controlled, No redness/swelling at site. Pressure dressing applied. Administered Medications: 13:20 Drug: NS 0.9% 1000 ml Route: IV; Rate: 1000 ml; Site: right antecubital; tw2 16:25 Follow up: Response: No adverse reaction; IV Status: Completed infusion; IV Intake: tw2 1000ml 16:08 Drug: Rocephin 1 grams Route: IV; Rate: calculated rate; Site: right antecubital; tw2 16:12 Follow up: Response: No adverse reaction; IV Status: Completed infusion tw2 Point of Care Testing: Blood Glucose: 12:53 Blood Glucose: 294 mg/dL; tw2 12:53 provider notified. tw2 Ranges: Intake: 16:25 IV: 1000ml; Total: 1000ml. tw2 Outcome: 15:59 Discharge ordered by . pm1 16:25 Discharged to home ambulatory. tw2 16:25 Condition: stable 16:25 Discharge instructions given to patient, Instructed on medication usage, Demonstrated understanding of instructions, follow-up care, medications, Prescriptions given X 2. 16:26 Patient left the ED. tw2 Addendum: 09/13/2018 07:45 Addendum: Culture Results: Positive urine culture. No further action required. Bacteria s s sensitive to prescribed antibiotic. Signatures: Dispatcher [employer] EDMS Osmin Vaughn RN RN sg Rivera, Teresa mr Magy Mcgrath RN RN Chary Velásquez Patrick, NP FORMING AND ASSEMBLING SUPERVISOR pm1 Na Shirley RN RN tw2 Willem Ceja jp3 Corrections: (The following items were deleted from the chart) 09/10 14:20 14:20 Reassessment: Patient appears in no apparent distress at this time. No changes tw2 from previously documented assessment. Patient and/or family updated on plan of care and expected duration. Pain level reassessed. Patient is alert, oriented x 3, equal unlabored respirations, skin warm/dry/pink. tw2
[2018-09-10] MEDS ORDERED: CEFTRIAXONE/SWI 1gm 1 GM/10 ML SYR ONE (16:15)
[2018-09-10 18:44] VITALS: TEMP 99.4
[2018-09-10 18:48] VITALS: O2SAT 97
[2018-09-10 18:49] VITALS: BP 126/65
[2018-09-10 20:10] LABS: Urine Blood TRACE (NEG); Urine Glucose NEGATIVE (NEG); Urine Protein 1+ (NEG); Urine pH 5.5 (5.0-7.0)
== END 2018-09-10 16:26 | disposition home or self-care (01) ==
LOC: ER 12:18
DX: N39.0 Urinary tract infection, site not specified (principal); J06.9 Acute upper respiratory infection, unspecified; R19.7 Diarrhea, unspecified; I10 Essential (primary) hypertension; E11.9 Type 2 diabetes mellitus without complications; F32.9 Major depressive disorder, single episode, unspecified; E78.00 Pure hypercholesterolemia, unspecified; Z79.82 Long term (current) use of aspirin; Z79.4 Long term (current) use of insulin
CPT/HCPCS: 96361; 87088; 87045; 85025; 87086; 80048; 36415; 89055; 87177; 82962; 80076; 87046; 87493; 87209; 87077; 87186; 83690; 74176; 71046; 96374; 99284; J0696; J7030; 81003; 81015

== ENCOUNTER 2018-09-11 20:15 | Observation (INO) | payer OTHER ==
[2018-09-11] MEDS ORDERED: ONDANSETRON 4 MG/2 ML VIAL ONE (21:26)
[2018-09-11] MEDS ORDERED: NA CHLORIDE 0.9% 1,000 ML ONE (21:26)
[2018-09-11 21:45] LABS: Absolute Lymphocytes (CBC) 1.2 K/uL (0.7-4.9); Absolute Monocytes 0.5 K/uL (0.1-1.3); Absolute Neutrophil 9.2 K/uL (1.8-8.0); Basophils % 0.6 % (0-1.3); Eosinophils % 0.8 % (0-4.4); Hematocrit 37.7 % (36.0-45.0); Lymphocytes % 10.8 % (15.3-44.8); MPV 8.8 fL (7.6-11.3); Monocytes % 4.9 % (3.3-12.3); RBC Red Blood Cell Count 4.65 M/uL (3.86-4.86)
[2018-09-11 22:04] LABS: Albumin 3.3 g/dL (3.4-5.0); Bilirubin Direct 0.2 mg/dL (0-0.2); Bilirubin Total 0.6 mg/dL (0.2-1.0); Potassium 3.9 mmol/L (3.5-5.1); Protein, Total 8.3 g/dL (6.4-8.2)
--- NOTE | 2018-09-11 23:19 | EDPHYS ---
Physician Documentation [facility] Name: Bertha Jones Age: 68 yrs Sex: Female : 1950 Arrival Date: 09/11/2018 Time: 20:16 Bed 8 Private MD: Rhys Taylor ED Physician Miguel Angel Jimenez HPI: 09/11 21:07 This 68 yrs old Female presents to ER via Ambulatory with complaints of pkl Vomiting, Doesn't Feel Right. 21:07 The patient presents to the emergency department with nausea, vomiting, diarrhea. pkl Onset: The symptoms/episode began/occurred 2 week(s) ago. Associated signs and symptoms: Pertinent positives: fever, weak and dizzy. The patient has been recently seen at the [facility], yesterday, for similar complaints was given a prescription for antibiotics. Historical: - Allergies: 20:20 No Known Allergies; la1 - PMHx: 20:20 Depression; Diabetes - NIDDM; Diverticulitis; High Cholesterol; Hypertension; la1 Hypothyroidism; Pneumonia; Tachycardia; viral menigitus; - Immunization history:: Adult Immunizations up to date. - Social history:: Smoking status: unknown. - Ebola Screening: : No symptoms or risks identified at this time. ROS: 21:07 Eyes: Negative for injury, pain, redness, and discharge, ENT: Negative for injury, pkl pain, and discharge, Neck: Negative for injury, pain, and swelling, Cardiovascular: Negative for chest pain, palpitations, and edema, Respiratory: Negative for shortness of breath, cough, wheezing, and pleuritic chest pain. 21:07 Abdomen/GI: Positive for nausea, vomiting, and diarrhea. 21:07 Back: Negative for acute changes. 21:07 : Negative for urinary symptoms. 21:07 MS/extremity: Negative for acute changes. 21:07 Skin: Negative for rash. 21:07 Neuro: Negative for altered mental status. Exam: 21:07 Head/Face: Normocephalic, atraumatic. Eyes: Pupils equal round and reactive to light, pkl extra-ocular motions intact. Lids and lashes normal. Conjunctiva and sclera are non-icteric and not injected. Cornea within normal limits. Periorbital areas with no swelling, redness, or edema. ENT: Nares patent. No nasal discharge, no septal abnormalities noted. Tympanic membranes are normal and external auditory canals are clear. Oropharynx with no redness, swelling, or masses, exudates, or evidence of obstruction, uvula midline. Mucous membranes moist. Neck: Trachea midline, no thyromegaly or masses palpated, and no cervical lymphadenopathy. Supple, full range of motion without nuchal rigidity, or vertebral point tenderness. No Meningismus. Chest/axilla: Normal chest wall appearance and motion. Nontender with no deformity. No lesions are appreciated. Cardiovascular: Regular rate and rhythm with a normal S1 and S2. No gallops, murmurs, or rubs. Normal PMI, no JVD. No pulse deficits. Respiratory: Lungs have equal breath sounds bilaterally, clear to auscultation and percussion. No rales, rhonchi or wheezes noted. No increased work of breathing, no retractions or nasal flaring. 21:07 Abdomen/GI: Bowel sounds: normal, Palpation: abdomen is soft and non-tender, in all quadrants. 21:07 Back: Exam negative for acute changes. 21:07 : Exam negative for acute changes. 21:07 Musculoskeletal/extremity: Exam is negative for acute changes. 21:07 Skin: Exam negative for rash. 21:07 Neuro: Orientation: is normal, Mentation: is normal, Cranial nerves: grossly normal, Motor: is normal. Vital Signs: 20:24 BP 152 / 74; Pulse 56; Resp 18; Temp 98.0; Pulse Ox 93% on R/A; Weight 92.99 kg; Height la1 5 ft. 4 in. (162.56 cm); 21:46 BP 168 / 80; Pulse 60; Resp 18; Pulse Ox 95% on R/A; ea 22:50 BP 157 / 56; Pulse 60; Resp 18; Pulse Ox 100% ; ea 20:24 Body Mass Index 35.19 (92.99 kg, 162.56 cm) la1 MDM: 20:33 Patient medically screened. pkl 23:16 Data reviewed: vital signs, nurses notes, lab test result(s). pk 09/11 21:06 Order name: Basic Metabolic Panel; Complete Time: 22:05 pkl 09/11 22:06 Interpretation: Normal except. pk 09/11 21:06 Order name: CBC with Diff; Complete Time: 21:48 pkl 09/11 21:06 Order name: Creatinine for Radiology; Complete Time: 22:05 pkl 09/11 21:06 Order name: Hepatic Function; Complete Time: 22:05 pkl 09/11 21:06 Order name: Lipase; Complete Time: 22:05 pkl 09/11 23:31 Order name: CBC with Automated Diff EDMS 09/11 23:31 Order name: CBC with Automated Diff EDMS 09/11 23:31 Order name: Comprehensive Metabolic Panel EDMS 09/11 23:31 Order name: Comprehensive Metabolic Panel EDMS 09/11 21:06 Order name: IV Saline Lock; Complete Time: 21:44 pkl 09/11 21:06 Order name: Labs collected and sent; Complete Time: 21:43 pkl 09/11 23:31 Order name: CONS Pharmacy Consult EDMS 09/11 23:31 Order name: Full Liquid EDMS Administered Medications: 21:26 Drug: NS 0.9% 1000 ml Route: IV; Rate: 1000 ml; Site: right forearm; ea 09/12 00:42 Follow up: IV Status: Completed infusion; IV Intake: 1000ml tl2 09/11 21:26 Drug: Zofran 4 mg Route: IVP; Site: right forearm; ea 21:43 Follow up: Response: No adverse reaction; Nausea is decreased ea Disposition: 09/11/18 23:18 Hospitalization ordered by Shahana Chester for Observation. Preliminary diagnosis is Gastroenteritis. Dehydration. Failed outpatient treatment. - Bed requested for Telemetry/MedSurg (observation). - Status is Observation. tl2 - Condition is Stable. - Problem is new. - Symptoms are unchanged. UTI on Admission? No Signatures: Dispatcher [employer] EDOH Kyra Garber RN RN mw Lam, Pin, MD MD pkMariano Bang RN RN laSwetha Burris RN RN tl2 Izabel Stone RN RN ea Corrections: (The following items were deleted from the chart) 21:07 21:07 HEMOGLOBIN A1C+CHEM A1C.LAB.BRZ ordered. EDMS EDMS 21:36 21:07 Stool Culture+BA.LAB.BRZ ordered. EDMS EDMS 21:36 21:07 CDIFF.MR.LAB.BRZ ordered. EDMS EDMS 23:59 23:18 Hospitalization Ordered by Shahana Chester MD for Observation. Preliminary mw diagnosis is Gastroenteritis. Dehydration. Failed outpatient treatment. Bed requested for Telemetry/MedSurg (observation). Status is Observation. Condition is Stable. Problem is new. Symptoms are unchanged. UTI on Admission? No. pkl 09/12 00:42 09/11 23:59 09/11/2018 23:18 Hospitalization Ordered by Shahana Chester MD for tl2 Observation. Preliminary diagnosis is Gastroenteritis. Dehydration. Failed outpatient treatment. Bed requested for Telemetry/MedSurg (observation). Status is Observation. Condition is Stable. Problem is new. Symptoms are unchanged. UTI on Admission? No. mw
--- NOTE | 2018-09-11 23:19 | ER ---
Nurse's Notes [facility] Name: Bertha Jones Age: 68 yrs Sex: Female : 1950 Arrival Date: 09/11/2018 Time: 20:16 Bed 8 Private MD: Rhys Taylor Diagnosis: Gastroenteritis. Dehydration. Failed outpatient treatment Presentation: 09/11 20:20 Presenting complaint: Patient states: fever started 09/09, V/D for 2 weeks, Daughter la1 states she called her and she went to check on her she was laying on the floor surrounded by vomit, pt denies falling states she was crawling on the floor, also reports electricity was off and it was "warm" in the house as well. Transition of care: patient was not received from another setting of care. Onset of symptoms was September 11, 2018. Risk Assessment: Do you want to hurt yourself or someone else? Patient reports no desire to harm self or others. Initial Sepsis Screen: Does the patient meet any 2 criteria? No. Patient's initial sepsis screen is negative. Does the patient have a suspected source of infection? No. Patient's initial sepsis screen is negative. Care prior to arrival: None. 20:20 Method Of Arrival: Ambulatory la1 20:20 Acuity: MACK 3 la1 Historical: - Allergies: 20:20 No Known Allergies; la1 - PMHx: 20:20 Depression; Diabetes - NIDDM; Diverticulitis; High Cholesterol; Hypertension; la1 Hypothyroidism; Pneumonia; Tachycardia; viral menigitus; - Immunization history:: Adult Immunizations up to date. - Social history:: Smoking status: unknown. - Ebola Screening: : No symptoms or risks identified at this time. Screenin:40 Abuse screen: Denies threats or abuse. Nutritional screening: No deficits noted. ea Tuberculosis screening: No symptoms or risk factors identified. Fall Risk None identified. Assessment: 20:31 General: Appears uncomfortable, Behavior is calm, cooperative, appropriate for age. ea Pain: Denies pain. Neuro: Level of Consciousness is awake, alert, obeys commands, Oriented to person, place, time, situation, Reports dizziness. Cardiovascular: Patient's skin is warm and dry. Respiratory: Airway is patent Respiratory effort is even, unlabored, Respiratory pattern is regular, symmetrical. GI: Abdomen is non-distended. Derm: Skin is pink, warm \\T\\ dry. Musculoskeletal: Circulation, motion, and sensation intact. 21:44 Reassessment: Patient and/or family updated on plan of care and expected duration. Pain ea level reassessed. Patient is alert, oriented x 3, equal unlabored respirations, skin warm/dry/pink. 22:44 Reassessment: Patient and/or family updated on plan of care and expected duration. Pain ea level reassessed. Patient is alert, oriented x 3, equal unlabored respirations, skin warm/dry/pink. 23:00 Reassessment: Patient and/or family updated on plan of care and expected duration. Pain ea level reassessed. Patient is alert, oriented x 3, equal unlabored respirations, skin warm/dry/pink. Awaiting on orders. 09/12 00:41 Reassessment: Patient and/or family updated on plan of care and expected duration. Pain ea level reassessed. Patient is alert, oriented x 3, equal unlabored respirations, skin warm/dry/pink. Report called to Cassie RUELAS on second floor. Pt admitted to second floor, taken via wheelchair per tech accompanied by sister. Pt tolerating well. Vital Signs: 09/11 20:24 BP 152 / 74; Pulse 56; Resp 18; Temp 98.0; Pulse Ox 93% on R/A; Weight 92.99 kg; Height la1 5 ft. 4 in. (162.56 cm); 21:46 BP 168 / 80; Pulse 60; Resp 18; Pulse Ox 95% on R/A; ea 22:50 BP 157 / 56; Pulse 60; Resp 18; Pulse Ox 100% ; ea 20:24 Body Mass Index 35.19 (92.99 kg, 162.56 cm) la1 ED Course: 20:16 Patient arrived in ED. am2 20:16 Rhys Taylor MD is Private Physician. am2 20:22 Triage completed. la1 20:22 Arm band placed on left wrist. la1 20:31 Izabel Stone, SURAJ is Primary Nurse. ea 20:33 Miguel Angel Jimenez MD is Attending Physician. pkl 20:40 Patient has correct armband on for positive identification. Bed in low position. Call ea light in reach. Side rails up X2. 20:40 Inserted saline lock: 22 gauge in right forearm, using aseptic technique. ea 23:17 Shahana Chester MD is Hospitalizing Provider. pkl 09/12 00:41 No provider procedures requiring assistance completed. Patient admitted, IV remains in tl2 place. Administered Medications: 09/11 21:26 Drug: NS 0.9% 1000 ml Route: IV; Rate: 1000 ml; Site: right forearm; ea 09/12 00:42 Follow up: IV Status: Completed infusion; IV Intake: 1000ml tl2 09/11 21:26 Drug: Zofran 4 mg Route: IVP; Site: right forearm; ea 21:43 Follow up: Response: No adverse reaction; Nausea is decreased ea Intake: 09/12 00:42 IV: 1000ml; Total: 1000ml. tl2 Outcome: 09/11 23:18 Decision to Hospitalize by Provider. pk 09/12 00:41 Admitted to Med/surg accompanied by tech, via wheelchair, room 214, with chart. tl2 Condition: stable Discharge instructions given to patient, Instructed on the need for admit. 00:42 Patient left the ED. tl2 Signatures: Miguel Angel Jimenez MD MD pkl Mariano Zelaya RN RN Swetha Jones, RN RN tl2 Neli Avalos Elena, RN RN ea
[2018-09-11] MEDS ORDERED: MORPHINE 2 MG/ML SYR IV PRN (23:28)
[2018-09-11] MEDS ORDERED: ACETAMINOPHEN 500 MG TAB PO PRN (23:28)
[2018-09-12] MEDS ORDERED: METOPROLOL TAR 50 MG TAB PO ONE (00:55)
[2018-09-12] MEDS: NA CHLORIDE 0.9% 1,000 ML IV SCH ×3 (01:25→13:07)
[2018-09-12] MEDS: ONDANSETRON 4 MG/2 ML VIAL IV PRN ×3 (01:27→14:18)
[2018-09-12 01:51] VITALS: BMI 34.2
[2018-09-12 03:57] LABS: Urine Appearance CLEAR; Urine Bilirubin NEGATIVE (NEG); Urine Blood TRACE (NEG); Urine Color YELLOW; Urine Glucose NEGATIVE (NEG); Urine Protein NEGATIVE (NEG); Urine pH 6.5 (5.0-7.0)
[2018-09-12 04:06] LABS: Urine Microscopic Reflex ORDER UMIC
[2018-09-12 05:20] LABS: Urine Bacteria <20 /HPF (<20); Urine RBC <5 /HPF (NONE SEEN); Urine Yeast FEW (NONE SEEN)
[2018-09-12 05:21] LABS: Urine Culture Reflex Order REFLEXED
[2018-09-12] MEDS ORDERED: METOPROLOL TAR 25 MG TAB PO SCH (06:00)
[2018-09-12 06:21] LABS: Absolute Monocytes 0.6 K/uL (0.1-1.3); Absolute Neutrophil 5.6 K/uL (1.8-8.0); Basophils % 0.6 % (0-1.3); Eosinophils % 0.9 % (0-4.4); Hematocrit 35.6 % (36.0-45.0); Lymphocytes % 23.6 % (15.3-44.8); MPV 8.5 fL (7.6-11.3); Monocytes % 7.6 % (3.3-12.3); RBC Red Blood Cell Count 4.37 M/uL (3.86-4.86)
[2018-09-12 06:32] LABS: Albumin 2.7 g/dL (3.4-5.0); Bilirubin Total 0.4 mg/dL (0.2-1.0); Potassium 3.9 mmol/L (3.5-5.1); Protein, Total 6.9 g/dL (6.4-8.2)
--- NOTE | 2018-09-12 08:29 | P.HP ---
Certification for Inpatient Patient admitted to: Observation With expected LOS: <2 Midnights Patient will require the following post-hospital care: None Practitioner: I am a practitioner with admitting privileges, knowledge of patient current condition, hospital course, and medical plan of care. Services: Services provided to patient in accordance with Admission requirements found in Title 42 Section 412.3 of the Code of Federal Regulations Patient History Date of Service: 09/11/18 Reason for admission: Intractable nausea and vomiting and diarrhea History of Present Illness: Patient is a 68-year-old female whose had nausea, vomiting, and diarrhea on and off for 2 weeks. She was in the ER a couple of days ago with similar complaints. After hydration she felt better. She went home but shortly after getting home she was feeling weak and lightheaded. The symptoms continued so she came into the hospital for further evaluation. In the emergency room she was lightheaded upon standing. Her creatinine was slightly elevated but apparently was a little worse a few months ago. She does not really appear to be dehydrated. At this time will admit the patient to the hospital and await stool studies from 24 hr ago. Check orthostatics and hydrate. Possible discharge home in 24-48 hours. Allergies No Known Drug Allergies Allergy (Verified 09/12/18 01:10) Unknown Home Medications: Amlodipine [Norvasc*] 1 tab PO DAILY 02/10/18 Aspirin 1 tab PO DAILY 02/10/18 Gabapentin [Neurontin*] 2 cap PO BEDTIME 02/10/18 Insulin NPH Hum/Reg Insulin Hm [Humulin 70-30 Vial] 1 unit SQ SEECOM 02/10/18 Levothyroxine [Synthroid*] 1 tab PO DAILY 02/10/18 Metoprolol 100 mg PO DAILY 02/10/18 Pantoprazole [Protonix Tab*] 1 tab PO BEDTIME 02/10/18 Pravastatin Sodium 1 tab PO BEDTIME 02/10/18 Sertraline HCl 1 tab PO BEDTIME 02/10/18 Lisinopril 0.5 tab PO DAILY #30 tablet 02/11/18 - Past Medical/Surgical History Has patient received pneumonia vaccine in the past: Yes Diabetic: Yes -: DM -: diverticulitis -: high cholesterol -: HTN -: hypothyroidism -: tachycardia -: viral meningitis -: Pneumonia -: cholecystectomy -: hysterectomy -: cataract both eyes - Family History Father Medical History: Hypertension Notes: asbestosis Mother Medical History: Hypertension, Diabetes - Social History Smoking Status: Never smoker Alcohol use: No CD- Drugs: No Caffeine use: Yes Place of Residence: Home Review of Systems 10-point ROS is otherwise unremarkable Physical Examination - Vital Signs Temperature: 97.7 F Blood Pressure: 160/70 Pulse: 60 Respirations: 16 Pulse Ox (%): 94 - Physical Exam General: Alert, In no apparent distress, Oriented x3 HEENT: Atraumatic, PERRLA, Mucous membr. moist/pink, EOMI, Sclerae nonicteric Neck: Supple, 2+ carotid pulse no bruit, No LAD, Without JVD or thyroid abnormality Respiratory: Clear to auscultation bilaterally, Normal air movement Cardiovascular: Regular rate/rhythm, Normal S1 S2, No gallops, No murmurs Gastrointestinal: Normal bowel sounds, Soft and benign, Non-distended, No tenderness Musculoskeletal: No clubbing, No swelling, No tenderness Integumentary: No rashes Neurological: Normal gait, Normal speech, Normal strength at 5/5 x4 extr, Normal tone, Sensation intact, Cranial nerves 3-12 intact, Normal affect Lymphatics: No axilla or inguinal lymphadenopathy - Studies Laboratory Data (last 24 hrs) 09/11/18 21:30: Creatinine 1.46 H 09/11/18 21:30: WBC 11.0 H D, Hgb 12.6, Hct 37.7, Plt Count 314 09/11/18 21:30: Sodium 138, Potassium 3.9, BUN 21 H, Creatinine 1.42 H, Glucose 180 H, Total Bilirubin 0.6, AST 19, ALT 21, Alkaline Phosphatase 111, Lipase 62 L Assessment & Plan - Problems (Diagnosis) (1) Nausea & vomiting Current Visit: Yes Status: Acute (2) Diarrhea Current Visit: Yes Status: Acute (3) CHF (congestive heart failure) Onset Date: 02/10/18 Current Visit: No Status: Acute - Plan Plan: 1. IV hydration 2. recheck orthostatics 3. await stool studies prior to antibiotics 4. monitor electrolytes closely 5. outpatient GI consultation for colonoscopy if diarrhea persisted 6. GI and DVT prophylaxis Discharge Plan: Home Plan to discharge in: 48 Hours - Advance Directives Does patient have a Living Will: Yes Does patient have a Durable POA for Healthcare: Yes - Code Status/Comfort Care Code Status Assessed: Yes Code Status: Full Code Critical Care: No Time Spent Managing PTS Care (In Minutes): 45
[2018-09-12] MEDS ORDERED: LOSARTAN POTASSIUM 50 MG TABLET PO SCH (09:00)
--- NOTE | 2018-09-12 11:18 | P.PN ---
Subjective Date of Service: 09/12/18 Chief Complaint: Intractable nausea and vomiting and diarrhea Patient seen and examined at bedside with RN. Chart reviewed. Case discussed with patient at bedside. Complains of having some dizziness and continues to have nausea vomiting. Does state the Zofran helps with the vomiting. Review of Systems 10-point ROS is otherwise unremarkable Physical Examination - Vital Signs Temperature: 97.7 F Blood Pressure: 160/70 Pulse: 60 Respirations: 16 Pulse Ox (%): 94 - Physical Exam General: Alert, In no apparent distress HEENT: Atraumatic, PERRLA, EOMI Neck: Supple, JVD not distended Respiratory: Clear to auscultation bilaterally, Normal air movement Cardiovascular: Regular rate/rhythm, Normal S1 S2 Gastrointestinal: Normal bowel sounds, No tenderness Musculoskeletal: No tenderness Integumentary: No rashes Neurological: Normal speech, Normal tone, Normal affect Lymphatics: No axilla or inguinal lymphadenopathy - Studies Laboratory Data (last 24 hrs) 09/11/18 21:30: Creatinine 1.46 H 09/11/18 21:30: WBC 11.0 H D, Hgb 12.6, Hct 37.7, Plt Count 314 09/11/18 21:30: Sodium 138, Potassium 3.9, BUN 21 H, Creatinine 1.42 H, Glucose 180 H, Total Bilirubin 0.6, AST 19, ALT 21, Alkaline Phosphatase 111, Lipase 62 L Medications List Reviewed: Yes Assessment And Plan - Current Problems (Diagnosis) (1) Viral gastroenteritis Current Visit: Yes Status: Acute Plan: Patient with nausea vomiting and diarrhea. With mild improvement. -C. diff negative at this -fecal leukocytes positive at this time -other cultures pending at this time -will continue with IV fluids and advance diet as tolerated. (2) CHF (congestive heart failure) Onset Date: 02/10/18 Current Visit: No Status: Chronic Plan: CHF stable. Caution with Fluids given CHF h.o Qualifiers: Heart failure type: unspecified Heart failure chronicity: chronic Qualified Code(s): I50.9 - Heart failure, unspecified - Plan Pending clinical improvement at this time. Will await patient to be nausea and vomiting free for 24-48 hr. Will monitor closely. Discharge Plan: Home Plan to discharge in: Greater than 2 days - Code Status/Comfort Care Code Status Assessed: Yes Critical Care: No
[2018-09-12] MEDS: LISINOPRIL 20 MG TAB PO SCH (14:34)
[2018-09-12] MEDS ORDERED: ATORVASTATIN 10 MG TAB PO SCH (21:00)
[2018-09-12] MEDS ORDERED: GABAPENTIN 300 MG CAP PO SCH (21:00)
[2018-09-12] MEDS ORDERED: SERTRALINE HCL 50 MG TAB PO SCH (21:00)
[2018-09-12] MEDS ORDERED: PANTOPRAZOLE 40MG TABLET PO SCH (21:00)
[2018-09-13] MEDS ORDERED: HYDRALAZINE HCL 20 MG/ML VIAL IV PRN (00:55)
[2018-09-13] MEDS: NA CHLORIDE 0.9% 1,000 ML IV SCH ×2 (05:50→08:00)
[2018-09-13] MEDS ORDERED: LEVOTHYROXINE SOD 0.1 MG TAB PO SCH (06:30)
[2018-09-13] MEDS: ONDANSETRON 4 MG/2 ML VIAL IV PRN (08:24)
[2018-09-13] MEDS: LISINOPRIL 20 MG TAB PO SCH (08:25)
[2018-09-13] MEDS ORDERED: ASPIRIN 325 MG TAB PO SCH (09:00)
[2018-09-13] MEDS ORDERED: METOPROLOL XL 100 MG TAB PO SCH (09:00)
[2018-09-13] MEDS ORDERED: AMLODIPINE 10 MG TAB PO SCH (09:00)
[2018-09-13 10:48] VITALS: O2SAT 92
[2018-09-13 12:50] VITALS: BP 164/71; TEMP 97.2
--- NOTE | 2018-09-14 18:33 | P.DS ---
Admission Date: 09/11/18 Discharge Date: 09/14/18 Disposition: ROUTINE DISCHARGE Discharge Condition: FAIR Reason for Admission: Intractable nausea and vomiting and diarrhea Brief History of Present Illness: se HC Hospital Course: 68 Y/o woman who presented to the emergency room with nausea vomiting and diarrhea ,pt ws managedfor viral gastroenteritis on the day of discharge pt was hemodynimically stable pt was managed for: viral gastrenteritis IVF hydration advance diet as tolerated zofran pain mx cdiff test -ve fecal leukocytes +ve CHF -stable dvt ppx diasharge diet:heart healthy activity as tolerated f/up with pcp for continuation of care Vital Signs/Physical Exam: Temp Pulse Resp BP Pulse Ox 97.2 F 77 18 164/71 H 95 09/13/18 12:00 09/13/18 12:00 09/13/18 12:00 09/13/18 12:00 09/13/18 12:00 Laboratory Data at Discharge: WBC 8.3 K/uL (4.3-10.9) D 09/12/18 05:42 Hgb 11.5 g/dL (12.0-15.0) L 09/12/18 05:42 Hct 35.6 % (36.0-45.0) L 09/12/18 05:42 Plt Count 285 K/uL (152-406) 09/12/18 05:42 Sodium 143 mmol/L (136-145) 09/12/18 05:42 Potassium 3.9 mmol/L (3.5-5.1) 09/12/18 05:42 BUN 17 mg/dL (7-18) 09/12/18 05:42 Creatinine 1.17 mg/dL (0.55-1.3) 09/12/18 05:42 Glucose 149 mg/dL (74-106) H 09/12/18 05:42 Total Bilirubin 0.4 mg/dL (0.2-1.0) 09/12/18 05:42 AST 15 U/L (15-37) 09/12/18 05:42 ALT 17 U/L (12-78) 09/12/18 05:42 Alkaline Phosphatase 89 U/L (45-117) 09/12/18 05:42 Lipase 62 U/L (73-393) L 09/11/18 21:30 Home Medications: Amlodipine [Norvasc*] 1 tab PO DAILY 02/10/18 Aspirin 1 tab PO DAILY 02/10/18 Gabapentin [Neurontin*] 2 cap PO BEDTIME 02/10/18 Insulin NPH Hum/Reg Insulin Hm [Humulin 70-30 Vial] 1 unit SQ SEECOM 02/10/18 Levothyroxine [Synthroid*] 1 tab PO DAILY 02/10/18 Pantoprazole [Protonix Tab*] 1 tab PO BEDTIME 02/10/18 Pravastatin Sodium 1 tab PO BEDTIME 02/10/18 Sertraline HCl 1 tab PO BEDTIME 02/10/18 Lisinopril 0.5 tab PO DAILY #30 tablet 02/11/18 Metoprolol Succinate [Toprol Xl] 100 mg PO DAILY 09/12/18 Metoprolol Succinate [Toprol Xl*] 100 mg PO DAILY 30 Days #30 tab 09/13/18 New Medications: Metoprolol Succinate [Toprol Xl*] 100 mg PO DAILY 30 Days #30 tab Patient Discharge Instructions: f/up with [facility] for continuation of care
== END 2018-09-13 16:00 | disposition home or self-care (01) ==
LOC: ER 20:15 → ERHOLD 23:56 → 2ND 09-12 00:18
PROVIDERS: ADMIT Hospitalist; ATTEND Hospitalist
DX: A08.4 Viral intestinal infection, unspecified (principal); I11.0 Hypertensive heart disease with heart failure; I50.9 Heart failure, unspecified; E03.9 Hypothyroidism, unspecified
CPT/HCPCS: 96361; 85025 ×2; 80048; 36415; 82962 ×5; 80076; 83690; 80053; 96374; 99285; J0360; J7030 ×5; J2405 ×5; G0378 ×2; 81003; 81015

== ENCOUNTER 2018-10-20 14:38 | Inpatient (IN) | payer OTHER ==
[2018-10-20 16:21] LABS: Absolute Lymphocytes (CBC) 1.8 K/uL (0.7-4.9); Absolute Monocytes 1.3 K/uL (0.1-1.3); Absolute Neutrophil 13.2 K/uL (1.8-8.0); Basophils % 0.5 % (0-1.3); Eosinophils % 1.1 % (0-4.4); Hematocrit 36.3 % (36.0-45.0); Lymphocytes % 10.9 % (15.3-44.8); MPV 8.5 fL (7.6-11.3); Monocytes % 8.1 % (3.3-12.3); RBC Red Blood Cell Count 4.45 M/uL (3.86-4.86)
[2018-10-20 16:35] LABS: Potassium 3.6 mmol/L (3.5-5.1)
--- NOTE | 2018-10-20 16:46 | RAD REPORT ---
EXAM DESCRIPTION: US - Renal Ultrasound-Complete - 10/20/2018 4:40 pm CLINICAL HISTORY: Acute renal failure COMPARISON: CT August 2018 FINDINGS: The right kidney measures 11.2 x 5.0 x 4.9 cm. The left kidney measures 10.3 x 5.3 x 4.8 cm.. Renal cortical thickness and echogenicity are normal. No hydronephrosis or suspicious renal mass . No bladder wall thickening or mass. No intraluminal stone or mass. IMPRESSION: No hydronephrosis or suspicious renal mass. No other significant findings.
[2018-10-20] MEDS ORDERED: NA CHLORIDE 0.9% 1,000 ML ONE (16:50)
--- NOTE | 2018-10-20 18:01 | ER ---
Nurse's Notes [facility] Name: Bertha Jones Age: 68 yrs Sex: Female : 1950 Arrival Date: 10/20/2018 Time: 14:38 Bed 16 Private MD: Rhys Taylor Diagnosis: Acute kidney failure;Diarrhea, unspecified Presentation: 10/20 15:29 Presenting complaint: Patient states: Sent by Dr Taylor for dehydration and decreased ph renal function, reports N/V/D x approx 2 months, denies fever or pain, reports fatigue and dizzness. Transition of care: patient was not received from another setting of care. Onset of symptoms was October 20, 2018. Risk Assessment: Do you want to hurt yourself or someone else? Patient reports no desire to harm self or others. Initial Sepsis Screen: Does the patient meet any 2 criteria? No. Patient's initial sepsis screen is negative. Does the patient have a suspected source of infection? No. Patient's initial sepsis screen is negative. Care prior to arrival: None. 15:29 Method Of Arrival: Wheelchair ph 15:29 Acuity: MACK 3 ph Historical: - Allergies: 15:27 No Known Drug Allergies; ph - PMHx: 15:27 Depression; Diabetes - NIDDM; Diverticulitis; High Cholesterol; Hypertension; ph Hypothyroidism; Pneumonia; Tachycardia; viral menigitus; - PSHx: 15:27 Hysterectomy; ph - Immunization history:: Adult Immunizations unknown. - Social history:: Smoking status: Patient/guardian denies using tobacco. - Ebola Screening: : No symptoms or risks identified at this time. Screenin:15 Abuse screen: Denies threats or abuse. Denies injuries from another. Nutritional aj1 screening: No deficits noted. Tuberculosis screening: No symptoms or risk factors identified. Assessment: 16:15 General: Appears in no apparent distress. uncomfortable, Behavior is calm, cooperative, aj1 appropriate for age. Pain: Denies pain. Neuro: Level of Consciousness is awake, alert, obeys commands, Oriented to person, place, time, situation, Reports dizziness, fatigue. Cardiovascular: Patient's skin is warm and dry. Respiratory: Airway is patent Respiratory effort is even, unlabored, Respiratory pattern is regular, symmetrical. GI: Abdomen is non-distended, Bowel sounds present X 4 quads. Abd is soft X 4 quads Reports diarrhea, nausea, vomiting. : No signs and/or symptoms were reported regarding the genitourinary system. EENT: No signs and/or symptoms were reported regarding the EENT system. Derm: No signs and/or symptoms reported regarding the dermatologic system. Skin is pink, warm \T\ dry. normal. Musculoskeletal: No signs and/or symptoms reported regarding the musculoskeletal system. Circulation, motion, and sensation intact. 17:18 Reassessment: Patient appears in no apparent distress at this time. No changes from aj1 previously documented assessment. Patient and/or family updated on plan of care and expected duration. Pain level reassessed. Patient is alert, oriented x 3, equal unlabored respirations, skin warm/dry/pink. 19:20 Reassessment: Patient appears in no apparent distress at this time. Patient and/or jb4 family updated on plan of care and expected duration. Pain level reassessed. Patient is alert, oriented x 3, equal unlabored respirations, skin warm/dry/pink. 20:30 Reassessment: Patient appears in no apparent distress at this time. Patient and/or jb4 family updated on plan of care and expected duration. Pain level reassessed. Patient is alert, oriented x 3, equal unlabored respirations, skin warm/dry/pink. Taken to 2nd floor room 230 via wheelchair with utility tech. Vital Signs: 15:28 BP 105 / 64; Pulse 50; Resp 18; Temp 98.0; Pulse Ox 95% on R/A; Weight 92.99 kg; Height ph 5 ft. 4 in. (162.56 cm); Pain 0/10; 17:19 BP 110 / 68; Pulse 77; Resp 18; Pulse Ox 99% on R/A; aj1 20:00 BP 141 / 65; Pulse 51; Resp 16; Pulse Ox 97% on R/A; jb4 15:28 Body Mass Index 35.19 (92.99 kg, 162.56 cm) ph ED Course: 14:38 Patient arrived in ED. as 14:38 Rhys Taylor MD is Private Physician. as 15:28 Arm band placed on. ph 15:31 Triage completed. ph 15:32 Jenny Martinez FNP-C is [facility]. kb 15:32 Joaquin Mukherjee MD is Attending Physician. kb 16:05 Chloé Gandara, RN is Primary Nurse. aj1 16:12 Patient has correct armband on for positive identification. Placed in gown. Bed in low mh5 position. Call light in reach. Adult w/ patient. Warm blanket given. Pulse ox on. NIBP on. 16:12 Initial lab(s) drawn, by ED staff, sent to lab. Inserted saline lock: 22 gauge mh5 antecubital area, using aseptic technique. Blood collected. 16:13 Basic Metabolic Panel Sent. mh5 16:13 CBC with Diff Sent. mh5 16:15 No provider procedures requiring assistance completed. aj1 16:41 US Rp Exam Complete In Process Unspecified. EDMS 18:00 Marilyn Dangelo MD is Hospitalizing Provider. kb 20:00 Patient admitted, IV remains in place. jb4 Administered Medications: 16:55 Drug: NS 0.9% 1000 ml Route: IV; Rate: 1000 ml; Site: left antecubital; aj1 Outcome: 18:01 Decision to Hospitalize by Provider. kb 20:25 Admitted to Med/surg accompanied by tech, via wheelchair, room 230, with chart, Report jb4 called to Angelique. RN 20:25 Condition: stable 20:25 Discharge instructions given to patient, family, Instructed on the need for admit, Demonstrated understanding of instructions. 20:39 Patient left the ED. jb4 Signatures: Dispatcher [employer] EDTN Jenny Martinez, ZOOKEEPER-C ZOOKEEPER-Ckb Chloé Gandara, RN RN aj1 Eleanor Zhu Patricia, RN RN Griffin Stevens RN RN jb4 Priscilla Zhu [facility]
--- NOTE | 2018-10-20 18:01 | EDPHYS ---
Physician Documentation [facility] Name: Bertha Jones Age: 68 yrs Sex: Female : 1950 Arrival Date: 10/20/2018 Time: 14:38 Bed 16 Private MD: Rhys Taylor ED Physician Joaquin Mukherjee HPI: 10/20 15:57 This 68 yrs old Female presents to ER via Wheelchair with complaints of kb Abnormal Lab Results. 16:00 The patient presents to the emergency department with nausea, vomiting, diarrhea. kb Onset: The symptoms/episode began/occurred 2 month(s) ago. Possible causes: unknown. The symptoms are aggravated by nothing. The symptoms are alleviated by nothing. Associated signs and symptoms: Pertinent positives: diarrhea, nausea, vomiting, Pertinent negatives: abdominal pain, anorexia, belching, constipation, dysuria, fever, flatulence, GI bleeding, hematuria, vaginal discharge. Severity of symptoms: At their worst the symptoms were moderate in the emergency department the symptoms are unchanged. The patient has not experienced similar symptoms in the past. The patient has been recently seen by a physician: the patient's primary care provider. Pt reports she has had diarrhea with some nausea and vomiting for the past 2 months. States she was admitted here for it on 09/11/18, but they told her it was just gastroenteritis. Followed up with Dr Taylor and had blood work yesterday. Today he told her to come to ER for dehydration and kidney failure. Pt was told to ask to see Becky and Robert while she was here. . Historical: - Allergies: 15:27 No Known Drug Allergies; ph - PMHx: 15:27 Depression; Diabetes - NIDDM; Diverticulitis; High Cholesterol; Hypertension; ph Hypothyroidism; Pneumonia; Tachycardia; viral menigitus; - PSHx: 15:27 Hysterectomy; ph - Immunization history:: Adult Immunizations unknown. - Social history:: Smoking status: Patient/guardian denies using tobacco. - Ebola Screening: : No symptoms or risks identified at this time. ROS: 16:04 Constitutional: Negative for fever, chills, and weight loss, ENT: Negative for injury, kb pain, and discharge, Neck: Negative for injury, pain, and swelling, Cardiovascular: Negative for chest pain, palpitations, and edema, Respiratory: Negative for shortness of breath, cough, wheezing, and pleuritic chest pain, Back: Negative for injury and pain, : Negative for injury, bleeding, discharge, and swelling, MS/Extremity: Negative for injury and deformity, Skin: Negative for injury, rash, and discoloration, Neuro: Negative for headache, weakness, numbness, tingling, and seizure. 16:04 Abdomen/GI: Positive for nausea, vomiting, and diarrhea, Negative for abdominal pain. Exam: 16:04 Constitutional: This is a well developed, well nourished patient who is awake, alert, kb and in no acute distress. Head/Face: Normocephalic, atraumatic. ENT: Nares patent. No nasal discharge, no septal abnormalities noted. Tympanic membranes are normal and external auditory canals are clear. Oropharynx with no redness, swelling, or masses, exudates, or evidence of obstruction, uvula midline. Mucous membranes moist. Neck: Trachea midline, no thyromegaly or masses palpated, and no cervical lymphadenopathy. Supple, full range of motion without nuchal rigidity, or vertebral point tenderness. No Meningismus. Chest/axilla: Normal chest wall appearance and motion. Nontender with no deformity. No lesions are appreciated. Cardiovascular: Regular rate and rhythm with a normal S1 and S2. No gallops, murmurs, or rubs. Normal PMI, no JVD. No pulse deficits. Respiratory: Lungs have equal breath sounds bilaterally, clear to auscultation and percussion. No rales, rhonchi or wheezes noted. No increased work of breathing, no retractions or nasal flaring. Abdomen/GI: Soft, non-tender, with normal bowel sounds. No distension or tympany. No guarding or rebound. No evidence of tenderness throughout. Back: No spinal tenderness. No costovertebral tenderness. Full range of motion. Skin: Warm, dry with normal turgor. Normal color with no rashes, no lesions, and no evidence of cellulitis. MS/ Extremity: Pulses equal, no cyanosis. Neurovascular intact. Full, normal range of motion. Neuro: Awake and alert, GCS 15, oriented to person, place, time, and situation. Cranial nerves II-XII grossly intact. Motor strength 5/5 in all extremities. Sensory grossly intact. Cerebellar exam normal. Normal gait. Vital Signs: 15:28 BP 105 / 64; Pulse 50; Resp 18; Temp 98.0; Pulse Ox 95% on R/A; Weight 92.99 kg; Height ph 5 ft. 4 in. (162.56 cm); Pain 0/10; 17:19 BP 110 / 68; Pulse 77; Resp 18; Pulse Ox 99% on R/A; aj1 20:00 BP 141 / 65; Pulse 51; Resp 16; Pulse Ox 97% on R/A; jb4 15:28 Body Mass Index 35.19 (92.99 kg, 162.56 cm) ph MDM: 15:33 Patient medically screened. kb 16:04 Data reviewed: vital signs, nurses notes. Data interpreted: Pulse oximetry: on room air kb is 95 %. Interpretation: normal. 17:29 ED course: Awaiting urinalysis. kb 17:54 Physician consultation: Angie Johnson MD was contacted at 17:55, regarding consult, kb patient's condition, and will see patient in inpatient room, would like further tests performed. 17:55 Counseling: I had a detailed discussion with the patient and/or guardian regarding: the kb historical points, exam findings, and any diagnostic results supporting the discharge/admit diagnosis, lab results, radiology results, the need for further work-up and treatment in the hospital. 18:00 Physician consultation: Marilyn Dangelo MD was contacted at 18:00, regarding admission, to the medical/surgical unit. patient's condition, and will see patient in ED, shortly. 10/20 15:40 Order name: CBC with Diff; Complete Time: 16:26 kb 10/20 15:40 Order name: Basic Metabolic Panel; Complete Time: 16:36 kb 10/20 16:05 Order name: US Rp Exam Complete; Complete Time: 16:50 kb 10/20 17:52 Order name: Urine Dipstick--Ancillary (enter results); Complete Time: 18:37 bd 10/20 19:36 Order name: C-Reactive Protein; Complete Time: 19:42 EDMS 10/20 20:00 Order name: Sedimentation Rate, Westergren; Complete Time: 20:00 EDMS 10/20 15:40 Order name: IV Start; Complete Time: 16:13 kb 10/20 15:40 Order name: Urine Dipstick-Ancillary (obtain specimen); Complete Time: 17:51 kb 10/20 18:06 Order name: CONS Physician Consult EDMS Administered Medications: 16:55 Drug: NS 0.9% 1000 ml Route: IV; Rate: 1000 ml; Site: left antecubital; aj1 Disposition: 10/21 07:02 Co-signature as Attending Physician, Joaquin Mukherjee MD I agree with the assessment and kdr plan of care. Disposition: 10/20/18 18:01 Hospitalization ordered by Marilyn Dangelo for Observation. Preliminary diagnosis are Acute kidney failure, Diarrhea, unspecified. - Bed requested for Telemetry/MedSurg (observation). - Status is Observation. jb4 - Condition is Stable. - Problem is new. - Symptoms are unchanged. UTI on Admission? No Signatures: Dispatcher [employer] EDKY Jenny Martinez, TEXTILE DESIGNS SALES REPRESENTATIVE-C TEXTILE DESIGNS SALES REPRESENTATIVE-Ckb Aspen Jenkins Angela, RN RN aj1 Joaquin Mukherjee MD MD [facility] Cynthia Tabor, RN RN Griffin Aquino, RN RN jb4 Corrections: (The following items were deleted from the chart) 10/20 18:46 18:01 Hospitalization Ordered by Marilyn Dangelo MD for Observation. Preliminary diagnosis bd is Acute kidney failure; Diarrhea, unspecified. Bed requested for Telemetry/MedSurg (observation). Status is Observation. Condition is Stable. Problem is new. Symptoms are unchanged. UTI on Admission? No. kb 20:39 18:46 10/20/2018 18:01 Hospitalization Ordered by Marilyn Dangelo MD for Observation. jb4 Preliminary diagnosis is Acute kidney failure; Diarrhea, unspecified. Bed requested for Telemetry/MedSurg (observation). Status is Observation. Condition is Stable. Problem is new. Symptoms are unchanged. UTI on Admission? No. bd
--- NOTE | 2018-10-20 18:18 | P.HP ---
Certification for Inpatient Patient admitted to: Observation With expected LOS: <2 Midnights Patient will require the following post-hospital care: None Practitioner: I am a practitioner with admitting privileges, knowledge of patient current condition, hospital course, and medical plan of care. Services: Services provided to patient in accordance with Admission requirements found in Title 42 Section 412.3 of the Code of Federal Regulations Patient History Date of Service: 10/20/18 Primary Care Provider: Dr Syed Reason for admission: Nausea vomiting and diarrhea History of Present Illness: This is a 68-year-old female with significant past medical history of diabetes, hypertension, hyperlipidemia, diverticulitis, who presented to the ED complaining of having diarrhea on and off for past 2 months. Patient stated that she was seeing her primary care doctor today and was asked to come to the ER for further workup. Patient stated that she had some lab work done which was consistent with elevated kidney enzymes and thus her primary care provider asked her to come to the ER. Patient stated that her diarrhea is nonbloody in nature. Patient also states that she has been having some on and off nausea and vomiting along with diarrhea. Patient was seen here in the hospital last month for similar complaints and was discharged with a diagnosis of viral gastroenteritis after imaging study revealed no acute abnormality. Patient has been referred to GI doctor by primary care doctor however has not been able to see the doctor just yet. Patient denies having any fever chills shortness of breath chest pain or any other associated symptoms at this time. In the ER patient was seen and examined. Lab work and imaging was done. Lab work and imaging was consistent with acute kidney injury most likely secondary to dehydration along with chronic diarrhea and thus patient was admitted to the hospital for further workup. Allergies No Known Drug Allergies Allergy (Verified 09/12/18 01:10) Unknown Home medications list reviewed: Yes Home Medications: Amlodipine [Norvasc*] 1 tab PO DAILY 02/10/18 Aspirin 1 tab PO DAILY 02/10/18 Gabapentin [Neurontin*] 2 cap PO BEDTIME 02/10/18 Insulin NPH Hum/Reg Insulin Hm [Humulin 70-30 Vial] 1 unit SQ SEECOM 02/10/18 Levothyroxine [Synthroid*] 1 tab PO DAILY 02/10/18 Pantoprazole [Protonix Tab*] 1 tab PO BEDTIME 02/10/18 Pravastatin Sodium 1 tab PO BEDTIME 02/10/18 Sertraline HCl 1 tab PO BEDTIME 02/10/18 Lisinopril 0.5 tab PO DAILY #30 tablet 02/11/18 Metoprolol Succinate [Toprol Xl] 100 mg PO DAILY 09/12/18 Metoprolol Succinate [Toprol Xl*] 100 mg PO DAILY 30 Days #30 tab 09/13/18 - Past Medical/Surgical History Diabetic: Yes -: DM -: diverticulitis -: high cholesterol -: HTN -: hypothyroidism -: tachycardia -: viral meningitis -: Pneumonia -: cholecystectomy -: hysterectomy -: cataract both eyes - Family History Father -: Hypertension Notes: asbestosis Mother -: Hypertension, Diabetes - Social History Alcohol use: No CD- Drugs: No Caffeine use: Yes Review of Systems 10-point ROS is otherwise unremarkable Physical Examination - Physical Exam General: Alert, In no apparent distress, Oriented x3 HEENT: Atraumatic, PERRLA, Mucous membr. moist/pink, EOMI, Sclerae nonicteric Neck: Supple, 2+ carotid pulse no bruit, No LAD, Without JVD or thyroid abnormality Respiratory: Clear to auscultation bilaterally, Normal air movement Cardiovascular: Regular rate/rhythm, Normal S1 S2 Gastrointestinal: Normal bowel sounds, Soft and benign, Tenderness (Vague generalized tenderness) Musculoskeletal: No tenderness Integumentary: No rashes Neurological: Normal gait, Normal speech, Normal strength at 5/5 x4 extr, Normal tone, Normal affect Lymphatics: No axilla or inguinal lymphadenopathy - Studies Laboratory Data (last 24 hrs) 10/20/18 16:08: Sodium 134 L, Potassium 3.6, BUN 34 H, Creatinine 2.58 H, Glucose 258 H 10/20/18 16:08: WBC 16.6 H D, Hgb 11.8 L, Hct 36.3, Plt Count 465 H Assessment and Plan - Problems (Diagnosis) (1) Acute kidney injury Current Visit: Yes Status: Acute Plan: Acute kidney injury most likely secondary to dehydration secondary to chronic diarrhea along with nausea and vomiting -nephrology consulted. Awaiting recommendations at this time -renal ultrasound in the ER negative for any acute abnormality -will continue with IV fluids at this time NS at 100 mL an hr -will monitor closely. -There is a concern for CHF on patient's problem list however last echocardiogram done in 2018 was with ejection fraction of 76% and no diastolic dysfunction was noted at that time. (2) Diarrhea Current Visit: No Status: Acute Plan: Patient now with chronic diarrhea along with intermittent nausea and vomiting -differential diagnosis could include diabetic gastroparesis, functional diarrhea, infection related diarrhea, complication of diverticulitis, other etiology -given the elevated white count and neutrophils will start patient on IV antibiotics at this time -GI has been consulted. Awaiting recommendations at this time -will get stool studies done -keep patient on a heart healthy diet Qualifiers: Diarrhea type: unspecified type Qualified Code(s): R19.7 - Diarrhea, unspecified (3) HTN (hypertension) Current Visit: Yes Status: Chronic Plan: Stable at this time. -will resume home med Qualifiers: Hypertension type: essential hypertension Qualified Code(s): I10 - Essential (primary) hypertension (4) Hyperlipidemia Current Visit: Yes Status: Chronic Plan: Stable at this time. -will resume home med Qualifiers: Hyperlipidemia type: mixed hyperlipidemia Qualified Code(s): E78.2 - Mixed hyperlipidemia (5) Diabetes Current Visit: Yes Status: Chronic Plan: Insulin sliding scale and Accu-Chek Qualifiers: Diabetes mellitus type: type 2 Diabetes mellitus terminal carman insulin use: without terminal carman use Diabetes mellitus complication status: without complication Qualified Code(s): E11.9 - Type 2 diabetes mellitus without complications (6) Hypothyroidism Current Visit: Yes Status: Chronic Plan: Stable at this time. -will resume home med Qualifiers: Hypothyroidism type: acquired Qualified Code(s): E03.9 - Hypothyroidism, unspecified - Plan Admit patient to medical-surgical floor for further workup of her chronic diarrhea along with treatment of for COLETTE. Anticipate discharge in next 24-48 hr a for a KI improves. Patient can have workup for her chronic diarrhea outpatient if appropriate with GI. Discharge Plan: Home Plan to discharge in: 48 Hours - Advance Directives Does patient have a Living Will: Yes Does patient have a Durable POA for Healthcare: Yes - Code Status/Comfort Care Code Status Assessed: Yes Critical Care: No
[2018-10-20 18:33] LABS: Urine Blood 2+ (NEG); Urine Glucose NEGATIVE (NEG); Urine Protein 1+ (NEG)
[2018-10-20 20:51] VITALS: BMI 34.1
[2018-10-20] MEDS ORDERED: D50W 25 GM/50 ML SYRINGE IV PRN (20:52)
[2018-10-20] MEDS ORDERED: GLUCAGON 1 MG/VIAL IM PRN (20:52)
[2018-10-20] MEDS: INSULIN -REGULAR HUMAN 50 UNIT/0.5 ML ML SQ SCH (21:00)
[2018-10-20] MEDS: NA CHLORIDE 0.9% 1,000 ML IV SCH (21:51)
[2018-10-20] MEDS: METRONIDAZOLE 500mg IVPB 500 MG/100 ML BAG IV SCH (21:51)
[2018-10-20] MEDS: CIPROFLOXACIN 400mg IV 400 MG/200 ML BAG IV SCH (22:52)
[2018-10-20 23:20] LABS: Urine Appearance CLOUDY; Urine Bilirubin NEGATIVE (NEG); Urine Blood 1+ (NEG); Urine Color YELLOW; Urine Glucose NEGATIVE (NEG); Urine Protein TRACE (NEG); Urine pH 5.5 (5.0-7.0)
[2018-10-20 23:23] LABS: Urine Microscopic Reflex ORDER UMIC
[2018-10-21] LABS: Urine Bacteria >50 /HPF (<20); Urine Culture Reflex Order REFLEXED; Urine RBC <5 /HPF (NONE SEEN)
[2018-10-21] MEDS: METRONIDAZOLE 500mg IVPB 500 MG/100 ML BAG IV SCH ×4 (05:24→17:40)
[2018-10-21 06:21] LABS: Absolute Lymphocytes (CBC) 1.6 K/uL (0.7-4.9); Absolute Monocytes 1.4 K/uL (0.1-1.3); Absolute Neutrophil 12.4 K/uL (1.8-8.0); Basophils % 0.3 % (0-1.3); Eosinophils % 1.2 % (0-4.4); Lymphocytes % 9.9 % (15.3-44.8); MPV 8.6 fL (7.6-11.3); Monocytes % 8.9 % (3.3-12.3); RBC Red Blood Cell Count 3.94 M/uL (3.86-4.86)
[2018-10-21 06:35] LABS: Magnesium 1.6 mg/dL (1.8-2.4); Phosphorus 2.6 mg/dL (2.5-4.9)
[2018-10-21 06:49] LABS: Albumin 2.3 g/dL (3.4-5.0); Bilirubin Total 0.4 mg/dL (0.2-1.0); Potassium 3.8 mmol/L (3.5-5.1); Protein, Total 6.9 g/dL (6.4-8.2); Thyroid Stimulating Hormone 0.862 uIU/mL (0.360-3.740)
[2018-10-21] MEDS: INSULIN -REGULAR HUMAN 50 UNIT/0.5 ML ML SQ SCH ×4 (07:30→20:19)
[2018-10-21] MEDS ORDERED: MAGNESIUM SULFATE 1 gm IVPB 1 GM/100 ML BAG IV ONE (08:09)
[2018-10-21] MEDS ORDERED: POTASSIUM CL SA 10 MEQ TAB PO ONE (08:13)
[2018-10-21] MEDS: CIPROFLOXACIN 400mg IV 400 MG/200 ML BAG IV SCH ×2 (09:38→20:18)
[2018-10-21] MEDS: NA CHLORIDE 0.9% 1,000 ML IV SCH ×2 (09:38→15:00)
--- NOTE | 2018-10-21 16:17 | P.CNS ---
Date of Consult: 10/21/18 Reason for Consult: COLETTE Requesting Physician: Marilyn Dangelo Primary Care Provider: Dr Syed Chief Complaint: Nausea vomiting and diarrhea History of Present Illness: 68 yo WF DM presented to the ER with several months of moderate, persistent N/V with associated diarrhea and complicated by COLETTE. She reports taking several ibuprofen every evening for pain. She also takes aspirin 325mg every evening. This is a 68-year-old female with significant past medical history of diabetes, hypertension, hyperlipidemia, diverticulitis, who presented to the ED complaining of having diarrhea on and off for past 2 months. Patient stated that she was seeing her primary care doctor today and was asked to come to the ER for further workup. Patient stated that she had some lab work done which was consistent with elevated kidney enzymes and thus her primary care provider asked her to come to the ER. Patient stated that her diarrhea is nonbloody in nature. Patient also states that she has been having some on and off nausea and vomiting along with diarrhea. Patient was seen here in the hospital last month for similar complaints and was discharged with a diagnosis of viral gastroenteritis after imaging study revealed no acute abnormality. Patient has been referred to GI doctor by primary care doctor however has not been able to see the doctor just yet. Patient denies having any fever chills shortness of breath chest pain or any other associated symptoms at this time. 15:57 This 68 yrs old Female presents to ER via Wheelchair with complaints of kb Abnormal Lab Results. 16:00 The patient presents to the emergency department with nausea, vomiting, diarrhea. kb Onset: The symptoms/episode began/occurred 2 month(s) ago. Possible causes : unknown. The symptoms are aggravated by nothing. The symptoms are alleviated by nothing. Associated signs and symptoms: Pertinent positives: diarrhea, nausea, vomiting, Pertinent negatives: abdominal pain, anorexia, belching, constipation, dysuria, fever, flatulence, GI bleeding, hematuria, vaginal discharge. Severity of symptoms: At their worst the symptoms were moderate in the emergency department the symptoms are unchanged. The patient has not experienced similar symptoms in the past. The patient has been recently seen by a physician: the patient's primary care provider. Pt reports she has had diarrhea with some nausea and vomiting for the past 2 months. States she was admitted here for it on 09/11/18, but they told her it was just gastroenteritis. Followed up with Dr Taylor and had blood work yesterday. Today he told her to come to ER for dehydration and kidney failure. Pt was told to ask to see Becky and Robert while she was here. Allergies No Known Drug Allergies Allergy (Verified 09/12/18 01:10) Unknown Home medications list reviewed: Yes Home Medications: Amlodipine [Norvasc] 10 mg PO DAILY 10/20/18 Aspirin [Aspirin EC 325 MG] 325 mg PO BEDTIME 10/20/18 Gabapentin [Neurontin] 600 mg PO BEDTIME 10/20/18 Insulin NPH Hum/Reg Insulin Hm [Humulin 70/30 Kwikpen] 60 units SQ BREAKFAST 01/31 Levothyroxine [Synthroid] 88 mcg PO [id number] 10/20/18 Lisinopril [Prinivil] 40 mg PO DAILY 10/20/18 Metoprolol Succinate [Toprol Xl] 100 mg PO DAILY 10/20/18 Pantoprazole [Protonix Tab] 40 mg PO BEDTIME 10/20/18 Pravastatin Sodium [Pravachol] 80 mg PO BEDTIME 10/20/18 Sertraline [Zoloft] 50 mg PO BEDTIME 10/20/18 - Past Medical/Surgical History Diabetic: Yes -: DM -: diverticulitis -: high cholesterol -: HTN -: hypothyroidism -: tachycardia -: viral meningitis -: Pneumonia -: cholecystectomy -: hysterectomy -: cataract both eyes - Family History Father Medical History: Hypertension Notes: asbestosis Mother Medical History: Hypertension, Diabetes - Social History Smoking Status: Unknown if ever smoked Alcohol use: No CD- Drugs: No Caffeine use: Yes Place of Residence: Home Review of Systems 10-point ROS is otherwise unremarkable General: Weakness, Malaise Gastrointestinal: Nausea, Diarrhea Physical Examination Temp Pulse Resp BP Pulse Ox 97.9 F 63 18 170/84 H 95 10/21/18 12:00 10/21/18 12:00 10/21/18 12:00 10/21/18 12:00 10/21/18 12:00 General: Alert, In no apparent distress, Oriented x3, Cooperative HEENT: Normocephalic Neck: Supple Respiratory: Clear to auscultation bilaterally, Normal air movement Cardiovascular: No edema, Regular rate/rhythm, No rubs Gastrointestinal: Soft and benign, Non-distended, No guarding Musculoskeletal: No clubbing, No contractures Integumentary: No rashes, No cyanosis Neurological: Normal speech Laboratory Data (last 24 hrs) 10/20/18 16:08: Sodium 134 L, Potassium 3.6, BUN 34 H, Creatinine 2.58 H, Glucose 258 H 10/20/18 16:08: WBC 16.6 H D, Hgb 11.8 L, Hct 36.3, Plt Count 465 H Imagings Data: EXAM DESCRIPTION: US - Renal Ultrasound-Complete - 10/20/2018 4:40 pm CLINICAL HISTORY: Acute renal failure COMPARISON: CT August 2018 FINDINGS: The right kidney measures 11.2 x 5.0 x 4.9 cm. The left kidney measures 10.3 x 5.3 x 4.8 cm.. Renal cortical thickness and echogenicity are normal. No hydronephrosis or suspicious renal mass. No bladder wall thickening or mass. No intraluminal stone or mass. IMPRESSION: No hydronephrosis or suspicious renal mass. No other significant findings. Conclusions/Impression: A/ COLETTE likely due to ibuprofen, volume depletion and Lisinopril. Hypokalemia. CKD III with proteinuria. HTN with CKD. DM II with CKD. Moderate malnutrition. Hypocalcemia. Hypomagnesemia. Acute on chronic gastroenteritis. P/ Continue current POC and Medications. Agree with IVF. Agree with abx. Electrolyte replacement as ordered. Restart amlodipine. No NSAIDs. AM labs. Daily weight. Thank you kindly for the consultation.
[2018-10-21] MEDS: guaiFENesin 100 MG/5 ML UCUP PO PRN (16:38)
--- NOTE | 2018-10-21 16:49 | P.PN ---
Subjective Date of Service: 10/21/18 Primary Care Provider: Dr Syed Chief Complaint: Nausea vomiting and diarrhea Subjective: Improving Patient seen and examined at bedside. No family at bedside. Chart reviewed and case discussed with nursing staff Patient reports improvement. Only 1 bowel movement today, so far. Complains of cough, otherwise no complaints. Denies any Cp, sob, nausea Review of Systems 10-point ROS is otherwise unremarkable Physical Examination - Vital Signs Temperature: 97.9 F Blood Pressure: 170/84 Pulse: 63 Respirations: 18 Pulse Ox (%): 95 - Physical Exam General: Alert, In no apparent distress, Oriented x3 HEENT: Atraumatic, PERRLA, EOMI Neck: Supple, JVD not distended Respiratory: Clear to auscultation bilaterally, Normal air movement Cardiovascular: Regular rate/rhythm, Normal S1 S2 Gastrointestinal: Normal bowel sounds, No tenderness Musculoskeletal: No tenderness Integumentary: No rashes Neurological: Normal speech, Normal tone, Normal affect Lymphatics: No axilla or inguinal lymphadenopathy Assessment And Plan - Current Problems (Diagnosis) (1) Acute kidney injury Current Visit: Yes Status: Acute Plan: Acute kidney injury most likely secondary to ibuprofen usage vs dehydration secondary to chronic diarrhea along with nausea and vomiting -nephrology consulted. Recommendations appreciated. -renal ultrasound in the ER negative for any acute abnormality -will continue with IV fluids at this time NS at 100 mL an hr -will monitor closely. -There is a concern for CHF on patient's problem list however last echocardiogram done in 2018 was with ejection fraction of 76% and no diastolic dysfunction was noted at that time. (2) Diarrhea Current Visit: No Status: Acute Plan: Patient now with chronic diarrhea along with intermittent nausea and vomiting -differential diagnosis could include diabetic gastroparesis, functional diarrhea, infection related diarrhea, complication of diverticulitis, other etiology -given the elevated white count and neutrophils will continue patient on IV antibiotics at this time -GI has been consulted. Recommendations appreicated. Patient will receive outpatient GI workup in Dr. Fischer's office. -stool studies, pending. -keep patient on a heart healthy diet Qualifiers: Diarrhea type: unspecified type Qualified Code(s): R19.7 - Diarrhea, unspecified (3) HTN (hypertension) Current Visit: Yes Status: Chronic Plan: Stable at this time. -will resume home med Qualifiers: Hypertension type: essential hypertension Qualified Code(s): I10 - Essential (primary) hypertension (4) Hyperlipidemia Current Visit: Yes Status: Chronic Plan: Stable at this time. -will resume home med Qualifiers: Hyperlipidemia type: mixed hyperlipidemia Qualified Code(s): E78.2 - Mixed hyperlipidemia (5) Diabetes Current Visit: Yes Status: Chronic Plan: Insulin sliding scale and Accu-Chek Qualifiers: Diabetes mellitus type: type 2 Diabetes mellitus halfway insulin use: without halfway use Diabetes mellitus complication status: without complication Qualified Code(s): E11.9 - Type 2 diabetes mellitus without complications (6) Hypothyroidism Current Visit: Yes Status: Chronic Plan: Stable at this time. -will resume home med Qualifiers: Hypothyroidism type: acquired Qualified Code(s): E03.9 - Hypothyroidism, unspecified (7) CKD (chronic kidney disease) Current Visit: Yes Status: Chronic Qualifiers: Chronic kidney disease stage: stage 3 (moderate) Qualified Code(s): N18.3 - Chronic kidney disease, stage 3 (moderate) (8) Moderate protein-calorie malnutrition Current Visit: No Status: Chronic (9) Bacteremia Current Visit: Yes Status: Acute Plan: 1 bottle w/ gram negative growth - this could be a contaminant vs actual disease. Continue current antibiotics, pending Blood cultures. (10) Hypocalcemia Current Visit: Yes Status: Acute (11) Hypomagnesemia Current Visit: Yes Status: Acute - Plan Anticipate discharge in next 24-48 hr as COLETTE improves. Patient will have workup for her chronic diarrhea outpatient as per GI.
[2018-10-21] MEDS: AMLODIPINE 5 MG TAB PO SCH (20:18)
[2018-10-22] MEDS ORDERED: ACETAMINOPHEN 325 MG TABLET PO ONE (00:12)
[2018-10-22] MEDS: METRONIDAZOLE 500mg IVPB 500 MG/100 ML BAG IV SCH ×4 (00:37→18:05)
[2018-10-22] MEDS: guaiFENesin 100 MG/5 ML UCUP PO PRN ×2 (00:39→08:53)
[2018-10-22] MEDS: NA CHLORIDE 0.9% 1,000 ML IV SCH ×4 (04:35→21:00)
[2018-10-22 06:16] LABS: Absolute Lymphocytes (CBC) 1.6 K/uL (0.7-4.9); Absolute Monocytes 1.1 K/uL (0.1-1.3); Absolute Neutrophil 10.8 K/uL (1.8-8.0); Basophils % 0.4 % (0-1.3); Eosinophils % 1.3 % (0-4.4); Hematocrit 30.7 % (36.0-45.0); MPV 8.5 fL (7.6-11.3); Monocytes % 8.1 % (3.3-12.3); RBC Red Blood Cell Count 3.83 M/uL (3.86-4.86)
[2018-10-22 06:31] LABS: Albumin 2.4 g/dL (3.4-5.0); Bilirubin Total 0.5 mg/dL (0.2-1.0); Magnesium 1.7 mg/dL (1.8-2.4); Potassium 3.3 mmol/L (3.5-5.1); Protein, Total 6.6 g/dL (6.4-8.2)
[2018-10-22] MEDS ORDERED: MAGNESIUM SULFATE 1 gm IVPB 1 GM/100 ML BAG IV ONE (06:44)
[2018-10-22] MEDS ORDERED: POTASSIUM 25 MEQ EFFERV TAB PO ONE (06:47)
[2018-10-22] MEDS: INSULIN -REGULAR HUMAN 50 UNIT/0.5 ML ML SQ SCH ×5 (07:30→22:34)
[2018-10-22] MEDS: AMLODIPINE 5 MG TAB PO SCH ×2 (08:55→21:27)
[2018-10-22] MEDS ORDERED: POTASSIUM CL SA 10 MEQ TAB PO ONE ×2 (09:00→17:00)
[2018-10-22] MEDS: CIPROFLOXACIN 400mg IV 400 MG/200 ML BAG IV SCH ×2 (09:56→21:26)
[2018-10-22] MEDS: ACETAMINOPHEN 500 MG TAB PO PRN (13:25)
--- NOTE | 2018-10-22 15:19 | P.PN ---
Subjective Date of Service: 10/22/18 Primary Care Provider: Dr Syed Chief Complaint: Nausea vomiting and diarrhea Subjective: No C/O voiced Patient seen and examined at bedside. No family at bedside. Chart reviewed and case discussed with nursing staff Patient reports improvement. Only 1 bowel movement today, so far. Temperature of 100.8 this am. Complains of cough, otherwise no complaints. Denies any Cp, sob, nausea Review of Systems 10-point ROS is otherwise unremarkable Physical Examination - Vital Signs Temperature: 100.8 F Blood Pressure: 172/77 Pulse: 98 Respirations: 18 Pulse Ox (%): 97 - Physical Exam General: Alert, In no apparent distress, Oriented x3 HEENT: Atraumatic, PERRLA, EOMI Neck: Supple, JVD not distended Respiratory: Clear to auscultation bilaterally, Normal air movement Cardiovascular: Regular rate/rhythm, Normal S1 S2 Gastrointestinal: Normal bowel sounds, No tenderness Musculoskeletal: No tenderness Integumentary: No rashes Neurological: Normal speech, Normal tone, Normal affect Lymphatics: No axilla or inguinal lymphadenopathy Assessment And Plan - Current Problems (Diagnosis) (1) Acute kidney injury Current Visit: Yes Status: Acute Plan: Acute kidney injury most likely secondary to ibuprofen usage vs dehydration secondary to chronic diarrhea along with nausea and vomiting -nephrology consulted. Recommendations appreciated. -renal ultrasound in the ER negative for any acute abnormality -will continue with IV fluids at this time NS at 100 mL an hr -will monitor closely. -There is a concern for CHF on patient's problem list however last echocardiogram done in 2018 was with ejection fraction of 76% and no diastolic dysfunction was noted at that time. (2) Diarrhea Current Visit: No Status: Acute Plan: Patient now with chronic diarrhea along with intermittent nausea and vomiting -differential diagnosis could include diabetic gastroparesis, functional diarrhea, infection related diarrhea, complication of diverticulitis, other etiology -given the elevated white count and neutrophils will continue patient on IV antibiotics at this time -GI has been consulted. Recommendations appreicated. Patient will receive outpatient GI workup in Dr. Fischer's office. -stool studies, still pending. C. Dif negative -keep patient on a heart healthy diet Qualifiers: Diarrhea type: unspecified type Qualified Code(s): R19.7 - Diarrhea, unspecified (3) HTN (hypertension) Current Visit: Yes Status: Chronic Plan: Stable at this time. -will resume home med Qualifiers: Hypertension type: essential hypertension Qualified Code(s): I10 - Essential (primary) hypertension (4) Hyperlipidemia Current Visit: Yes Status: Chronic Plan: Stable at this time. -will resume home med Qualifiers: Hyperlipidemia type: mixed hyperlipidemia Qualified Code(s): E78.2 - Mixed hyperlipidemia (5) Diabetes Current Visit: Yes Status: Chronic Plan: Insulin sliding scale and Accu-Chek Qualifiers: Diabetes mellitus type: type 2 Diabetes mellitus alf insulin use: without terminal carman use Diabetes mellitus complication status: without complication Qualified Code(s): E11.9 - Type 2 diabetes mellitus without complications (6) Hypothyroidism Current Visit: Yes Status: Chronic Plan: Stable at this time. -will resume home med Qualifiers: Hypothyroidism type: acquired Qualified Code(s): E03.9 - Hypothyroidism, unspecified (7) CKD (chronic kidney disease) Current Visit: Yes Status: Chronic Qualifiers: Chronic kidney disease stage: stage 3 (moderate) Qualified Code(s): N18.3 - Chronic kidney disease, stage 3 (moderate) (8) Moderate protein-calorie malnutrition Current Visit: No Status: Chronic (9) Bacteremia Current Visit: Yes Status: Acute Plan: 1 bottle w/ gram negative growth - this could be a contaminant vs actual disease. Continue current antibiotics, pending Blood cultures. (10) Hypocalcemia Current Visit: Yes Status: Acute (11) Hypomagnesemia Current Visit: Yes Status: Acute (12) Urinary tract infection Current Visit: Yes Status: Acute Plan: Continue ciprofloxacin for gram negative coverage at this time. Pending urine cultures. Qualifiers: Urinary tract infection type: acute cystitis Hematuria presence: without hematuria Qualified Code(s): N30.00 - Acute cystitis without hematuria - Plan Anticipate discharge in next 24-48 hr as COLETTE improves. Patient will have workup for her chronic diarrhea outpatient as per GI.
--- NOTE | 2018-10-22 22:05 | P.PN ---
Date of Service: 10/22/18 Vital Signs Temp Pulse Resp BP Pulse Ox 97.9 F 68 18 124/66 97 10/22/18 20:00 10/22/18 21:27 10/22/18 20:00 10/22/18 21:27 10/22/18 20:00 Medications Acetaminophen (Tylenol -Extra Strength) 500 mg PO Q6H PRN PRN Reason: fever Stop: 11/21/18 13:08 Last Admin: 10/22/18 13:25 Dose: 500 mg Amlodipine Besylate (Norvasc) 5 mg PO BID BERNARD Stop: 11/20/18 21:01 Last Admin: 10/22/18 21:27 Dose: 5 mg Dextrose (Dextrose 50% Syringe) 12.5 gm IV PRN PRN PRN Reason: HYPOGLYCEMIA Stop: 11/19/18 20:53 Glucagon (Glucagen) 1 mg IM 1X PRN PRN Reason: HYPOGLYCEMIA Stop: 11/19/18 20:53 Guaifenesin (Robitussin 100mg/5ml) 100 mg PO QID PRN PRN Reason: COUGH Stop: 11/20/18 16:13 Last Admin: 10/22/18 08:53 Dose: 100 mg Ciprofloxacin/Dextrose (Cipro 400 Mg/200 Ml Ivpb (Premix)) 400 mg in 200 mls @ 200 mls/hr IV Q12HR BERNARD; Protocol Stop: 11/19/18 21:01 Last Admin: 10/22/18 21:26 Dose: 200 mls Metronidazole/Sodium Chloride (Flagyl 500mg/100 Ml Iv Premix) 500 mg in 100 mls @ 200 mls/hr IV Q6HR BERNARD; Protocol Stop: 11/19/18 18:31 Last Admin: 10/22/18 18:05 Dose: 100 mls Sodium Chloride (Ns 1000 Ml Ivbag) 1,000 mls @ 100 mls/hr IV .Q10H BERNARD Stop: 11/19/18 19:01 Last Admin: 10/22/18 17:06 Dose: 1,000 mls Insulin Human Regular (Novolin -R) 0 unit SQ ACHS BERNARD; Protocol Stop: 11/19/18 21:01 Last Admin: 10/22/18 21:00 Dose: Not Given Ondansetron HCl (Zofran) 4 mg IV Q6HP PRN PRN Reason: NAUSEA / VOMITING Stop: 11/19/18 20:53 Sodium Chloride (Normal Saline Flush) 10 ml IV BID BERNARD Stop: 11/19/18 21:01 Last Admin: 10/22/18 21:00 Dose: Not Given Assessment/ Plan: Nephrology. Feeling better today. +Fever Appetite improving. CPS stable without CP or SOB. No acute events overnight. General: Alert, In no apparent distress, Oriented x3, Cooperative HEENT: Normocephalic Neck: Supple Respiratory: Clear to auscultation bilaterally, Normal air movement Cardiovascular: No edema, Regular rate/rhythm, No rubs Gastrointestinal: Soft and benign, Non-distended, No guarding Musculoskeletal: No clubbing, No contractures Integumentary: No rashes, No cyanosis Neurological: Normal speech Laboratory Data (last 24 hrs) 10/20/18 16:08: Sodium 134 L, Potassium 3.6, BUN 34 H, Creatinine 2.58 H, Glucose 258 H 10/20/18 16:08: WBC 16.6 H D, Hgb 11.8 L, Hct 36.3, Plt Count 465 H Imagings Data: EXAM DESCRIPTION: US - Renal Ultrasound-Complete - 10/20/2018 4:40 pm CLINICAL HISTORY: Acute renal failure COMPARISON: CT August 2018 FINDINGS: The right kidney measures 11.2 x 5.0 x 4.9 cm. The left kidney measures 10.3 x 5.3 x 4.8 cm.. Renal cortical thickness and echogenicity are normal. No hydronephrosis or suspicious renal mass. No bladder wall thickening or mass. No intraluminal stone or mass. IMPRESSION: No hydronephrosis or suspicious renal mass. No other significant findings. Conclusions/Impression: A/ COLETTE likely due to ibuprofen, volume depletion and Lisinopril. Hypokalemia. CKD III with proteinuria. HTN with CKD. DM II with CKD. Moderate malnutrition. Hypocalcemia. Hypomagnesemia. Acute Cystitis. Acute on chronic gastroenteritis. P/ Continue current POC and Medications. Change IVF 1/2 NS. Potassium replacement as ordered. Magnesium replacement as ordered. Start Vitamin D3. Agree with abx. Follow up cultures. No NSAIDs. AM labs. Daily weight.
[2018-10-22] MEDS: NACHLORIDE 0.45% 1,000 ML IV SCH (22:34)
[2018-10-23] MEDS: METRONIDAZOLE 500mg IVPB 500 MG/100 ML BAG IV SCH ×5 (00:18→23:21)
[2018-10-23] MEDS: MAGNES/ALUMIN/SIMET 30ML UCUP PO PRN ×3 (04:01→21:29)
[2018-10-23 05:59] LABS: Absolute Lymphocytes (CBC) 1.4 K/uL (0.7-4.9); Absolute Monocytes 0.9 K/uL (0.1-1.3); Absolute Neutrophil 15.2 K/uL (1.8-8.0); Basophils % 0.3 % (0-1.3); Eosinophils % 0.9 % (0-4.4); Hematocrit 31.9 % (36.0-45.0); Lymphocytes % 7.6 % (15.3-44.8); MPV 8.3 fL (7.6-11.3); Monocytes % 5.3 % (3.3-12.3); RBC Red Blood Cell Count 3.98 M/uL (3.86-4.86)
[2018-10-23 06:20] LABS: Albumin 2.4 g/dL (3.4-5.0); Bilirubin Total 0.5 mg/dL (0.2-1.0); Potassium 3.9 mmol/L (3.5-5.1); Protein, Total 7.1 g/dL (6.4-8.2)
[2018-10-23] MEDS: INSULIN -REGULAR HUMAN 50 UNIT/0.5 ML ML SQ SCH ×5 (07:30→22:15)
[2018-10-23] MEDS ORDERED: MAGNESIUM SULFATE 1 gm IVPB 1 GM/100 ML BAG IV ONE (08:00)
[2018-10-23 08:54] LABS: Anisocytosis 1+; Blood Morphology Comment NOTED (NOT SEEN); Elliptocytes 1+; Platelet Estimate ADEQ; Urine White Blood Cell Casts OK
[2018-10-23] MEDS: CIPROFLOXACIN 400mg IV 400 MG/200 ML BAG IV SCH ×2 (08:55→21:32)
[2018-10-23] MEDS: AMLODIPINE 5 MG TAB PO SCH ×2 (08:55→21:31)
[2018-10-23] MEDS: VITAMIN D 5,000 UNIT CAP PO SCH (08:55)
[2018-10-23] MEDS: NACHLORIDE 0.45% 1,000 ML IV SCH ×3 (08:56→23:21)
[2018-10-23] MEDS ORDERED: POTASSIUM CL SA 10 MEQ TAB PO ONE (09:00)
--- NOTE | 2018-10-23 12:44 | P.PN ---
Subjective Date of Service: 10/23/18 Primary Care Provider: Dr Syed Chief Complaint: Nausea vomiting and diarrhea Subjective: Improving Patient seen and examined at bedside. No family at bedside. Chart reviewed and case discussed with nursing staff Patient reports improvement. Only 1 bowel movement today, so far. Afebrile overnight Cough improved, no complaints. Denies any Cp, sob, nausea Review of Systems 10-point ROS is otherwise unremarkable Physical Examination - Vital Signs Temperature: 97.2 F Blood Pressure: 138/65 Pulse: 82 Respirations: 17 Pulse Ox (%): 98 - Physical Exam General: Alert, In no apparent distress, Oriented x3 HEENT: Atraumatic, PERRLA, EOMI Neck: Supple, JVD not distended Respiratory: Clear to auscultation bilaterally, Normal air movement Cardiovascular: Regular rate/rhythm, Normal S1 S2 Gastrointestinal: Normal bowel sounds, No tenderness Musculoskeletal: No tenderness Integumentary: No rashes Neurological: Normal speech, Normal tone, Normal affect Lymphatics: No axilla or inguinal lymphadenopathy Assessment And Plan - Current Problems (Diagnosis) (1) Acute kidney injury Current Visit: Yes Status: Acute Plan: Acute kidney injury most likely secondary to ibuprofen usage vs dehydration secondary to chronic diarrhea along with nausea and vomiting. Improving creatinine -nephrology consulted. Recommendations appreciated. -renal ultrasound in the ER negative for any acute abnormality -will continue with IV fluids at this time NS at 100 mL an hr -will monitor closely. -There is a concern for CHF on patient's problem list however last echocardiogram done in 2018 was with ejection fraction of 76% and no diastolic dysfunction was noted at that time. (2) Diarrhea Current Visit: No Status: Acute Plan: Patient now with chronic diarrhea along with intermittent nausea and vomiting. Improving -differential diagnosis could include diabetic gastroparesis, functional diarrhea, infection related diarrhea, complication of diverticulitis, other etiology -given the elevated white count and neutrophils will continue patient on IV antibiotics at this time -GI has been consulted. Recommendations appreicated. Patient will receive outpatient GI workup in Dr. Fischer's office. -stool studies, still pending. C. Dif negative -keep patient on a heart healthy diet Qualifiers: Diarrhea type: unspecified type Qualified Code(s): R19.7 - Diarrhea, unspecified (3) HTN (hypertension) Current Visit: Yes Status: Chronic Plan: Stable at this time. -will continue home med Qualifiers: Hypertension type: essential hypertension Qualified Code(s): I10 - Essential (primary) hypertension (4) Hyperlipidemia Current Visit: Yes Status: Chronic Plan: Stable at this time. -will continue home med Qualifiers: Hyperlipidemia type: mixed hyperlipidemia Qualified Code(s): E78.2 - Mixed hyperlipidemia (5) Diabetes Current Visit: Yes Status: Chronic Plan: Insulin sliding scale and Accu-Chek Qualifiers: Diabetes mellitus type: type 2 Diabetes mellitus retail parts professional insulin use: without retail parts professional use Diabetes mellitus complication status: without complication Qualified Code(s): E11.9 - Type 2 diabetes mellitus without complications (6) Hypothyroidism Current Visit: Yes Status: Chronic Plan: Stable at this time. -will resume home med Qualifiers: Hypothyroidism type: acquired Qualified Code(s): E03.9 - Hypothyroidism, unspecified (7) CKD (chronic kidney disease) Current Visit: Yes Status: Chronic Qualifiers: Chronic kidney disease stage: stage 3 (moderate) Qualified Code(s): N18.3 - Chronic kidney disease, stage 3 (moderate) (8) Moderate protein-calorie malnutrition Current Visit: No Status: Chronic (9) Bacteremia Current Visit: Yes Status: Acute Plan: 1 bottle w/ gram negative growth - Klebsiella pneumonia. Continue current antibiotics, sensitive to ciprofloxacin. (10) Hypocalcemia Current Visit: Yes Status: Acute (11) Hypomagnesemia Current Visit: Yes Status: Acute (12) Urinary tract infection Current Visit: Yes Status: Acute Plan: Continue ciprofloxacin for gram negative coverage at this time. Still Pending urine cultures. Qualifiers: Urinary tract infection type: acute cystitis Hematuria presence: without hematuria Qualified Code(s): N30.00 - Acute cystitis without hematuria - Plan Patient with 1 bottle on bacteremia with Klebsiella pneumonia, continues to have elevated WBC count. Pending urine cultures. Patient will have workup for her chronic diarrhea outpatient as per GI. Possible discharge home in the next 24-48 hrs., pending cultures
[2018-10-23] MEDS: ACETAMINOPHEN 500 MG TAB PO PRN (12:53)
[2018-10-23] MEDS: ONDANSETRON 4 MG/2 ML VIAL IV PRN ×2 (14:07→21:29)
[2018-10-23] MEDS ORDERED: TEMAZEPAM 15 MG CAP PO ONE (23:53)
[2018-10-24] MEDS: PANTOPRAZOLE 40MG TABLET PO SCH ×3 (00:28→15:33)
[2018-10-24] MEDS: NACHLORIDE 0.45% 1,000 ML IV SCH ×3 (05:00→23:56)
[2018-10-24] MEDS: METRONIDAZOLE 500mg IVPB 500 MG/100 ML BAG IV SCH ×4 (05:12→23:58)
[2018-10-24 05:24] LABS: Magnesium 1.8 mg/dL (1.8-2.4); Potassium 3.9 mmol/L (3.5-5.1)
[2018-10-24] MEDS: INSULIN -REGULAR HUMAN 50 UNIT/0.5 ML ML SQ SCH ×4 (07:30→20:53)
[2018-10-24] MEDS ORDERED: POTASSIUM CL SA 10 MEQ TAB PO ONE (09:00)
[2018-10-24] MEDS ORDERED: MAGNESIUM SULFATE 1 gm IVPB 1 GM/100 ML BAG IV ONE (09:00)
[2018-10-24 09:07] LABS: Absolute Monocytes 1.2 K/uL (0.1-1.3); Absolute Neutrophil 15.4 K/uL (1.8-8.0); Basophils % 0.5 % (0-1.3); Eosinophils % 0.8 % (0-4.4); Hematocrit 31.6 % (36.0-45.0); Lymphocytes % 10.5 % (15.3-44.8); MPV 8.2 fL (7.6-11.3); Monocytes % 6.6 % (3.3-12.3)
[2018-10-24] MEDS: CIPROFLOXACIN 400mg IV 400 MG/200 ML BAG IV SCH ×2 (09:26→20:53)
[2018-10-24] MEDS: VITAMIN D 5,000 UNIT CAP PO SCH (09:28)
[2018-10-24] MEDS: AMLODIPINE 5 MG TAB PO SCH ×2 (09:29→20:52)
--- NOTE | 2018-10-24 16:13 | P.PN ---
Subjective Date of Service: 10/24/18 Primary Care Provider: Dr Syed Chief Complaint: Nausea vomiting and diarrhea Patient seen and examined at bedside. No family at bedside. Chart reviewed and case discussed with nursing staff Patient reports improvement. Only 1 bowel movement today, so far. Afebrile overnight Cough improved, no complaints. Denies any Cp, sob, nausea Clinically, doing well. Review of Systems 10-point ROS is otherwise unremarkable Physical Examination - Vital Signs Temperature: 97.3 F Blood Pressure: 169/78 Pulse: 77 Respirations: 16 Pulse Ox (%): 95 - Physical Exam General: Alert, In no apparent distress, Oriented x3 HEENT: Atraumatic, PERRLA, EOMI Neck: Supple, JVD not distended Respiratory: Clear to auscultation bilaterally, Normal air movement Cardiovascular: Regular rate/rhythm, Normal S1 S2 Gastrointestinal: Normal bowel sounds, No tenderness Musculoskeletal: No tenderness Integumentary: No rashes Neurological: Normal speech, Normal tone, Normal affect Lymphatics: No axilla or inguinal lymphadenopathy - Studies Microbiology Data (last 24 hrs): 10/20/18 22:50 Clean Catch Urine [place] Count - Final >100,000 CFU/ML. 10/20/18 22:50 Clean Catch Urine - Final Klebsiella Pneumoniae Assessment And Plan - Current Problems (Diagnosis) (1) Acute kidney injury Current Visit: Yes Status: Acute Plan: Acute kidney injury most likely secondary to ibuprofen usage vs dehydration secondary to chronic diarrhea along with nausea and vomiting. Creatinine continues to improve -nephrology consulted. Recommendations appreciated. -renal ultrasound in the ER negative for any acute abnormality -will continue with IV fluids at this time NS at 100 mL an hr -will monitor closely. -There is a concern for CHF on patient's problem list however last echocardiogram done in 2018 was with ejection fraction of 76% and no diastolic dysfunction was noted at that time. (2) Diarrhea Current Visit: No Status: Acute Plan: Patient now with chronic diarrhea along with intermittent nausea and vomiting. Improving diarrhea -differential diagnosis could include diabetic gastroparesis, functional diarrhea, infection related diarrhea, complication of diverticulitis, other etiology -given the elevated white count and neutrophils will continue patient on IV antibiotics at this time -GI has been consulted. Recommendations appreicated. Patient will receive outpatient GI workup in Dr. Fischer's office. -stool studies, still pending. C. Dif negative -keep patient on a heart healthy diet Qualifiers: Diarrhea type: unspecified type Qualified Code(s): R19.7 - Diarrhea, unspecified (3) HTN (hypertension) Current Visit: Yes Status: Chronic Plan: Stable at this time. -will continue home med Qualifiers: Hypertension type: essential hypertension Qualified Code(s): I10 - Essential (primary) hypertension (4) Hyperlipidemia Current Visit: Yes Status: Chronic Plan: Stable at this time. 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 -will resume home med Qualifiers: Hypothyroidism type: acquired Qualified Code(s): E03.9 - Hypothyroidism, unspecified (7) CKD (chronic kidney disease) Current Visit: Yes Status: Chronic Qualifiers: Chronic kidney disease stage: stage 3 (moderate) Qualified Code(s): N18.3 - Chronic kidney disease, stage 3 (moderate) (8) Moderate protein-calorie malnutrition Current Visit: No Status: Chronic (9) Bacteremia Current Visit: Yes Status: Acute Plan: 1 bottle w/ gram negative growth - Klebsiella pneumonia. Continue current antibiotics, sensitive to ciprofloxacin. (10) Hypocalcemia Current Visit: Yes Status: Acute (11) Hypomagnesemia Current Visit: Yes Status: Acute (12) Urinary tract infection Current Visit: Yes Status: Acute Plan: Continue ciprofloxacin for gram negative coverage at this time. Still Pending urine cultures. Qualifiers: Urinary tract infection type: acute cystitis Hematuria presence: without hematuria Qualified Code(s): N30.00 - Acute cystitis without hematuria (13) Leukocytosis Current Visit: Yes Status: Acute Plan: Patient continued leukocytosis, WBC trending up. The patient does have a urinary tract infection along with bacteremia, sensitive to ciprofloxacin. WBC count continues to trend up given 1 on antibiotics. Lactic acid is normal though pro calcitonin, ESR and CRP were elevated. Differential diagnosis here includes autoimmune disease (kidney) versus inflammatory disease (colon d/t long -standing diarrhea) versus infectious process. She continues to be on antibiotics. Kidney workup is pending. Labs may take longer and patient will follow up as an outpatient with Nephrology Patient will be getting an outpatient GI workup, including colonoscopy to evaluate further for possibility of inflammatory bowel disease. Clinically, patient does not look septic as vital signs and stable and she has been afebrile for over 48 hr. Qualifiers: Leukocytosis type: unspecified Qualified Code(s): D72.829 - Elevated white blood cell count, unspecified - Plan Patient with 1 bottle on bacteremia with Klebsiella pneumonia, continues to have elevated WBC count. Patient will have workup for her chronic diarrhea outpatient as per GI. Monitor WBC and pro calcitonin via tomorrow labs. Patient likely discharge home in the morning
--- NOTE | 2018-10-24 16:59 | RAD REPORT ---
EXAM DESCRIPTION: Mayra Single View10/24/2018 4:49 pm CLINICAL HISTORY: sob COMPARISON: August 2017 FINDINGS: The lungs appear clear of acute infiltrate. The heart is mildly enlarged IMPRESSION: No acute abnormalities displayed
[2018-10-24] MEDS ORDERED: TEMAZEPAM 15 MG CAP PO PRN (21:13)
[2018-10-25] MEDS: guaiFENesin 100 MG/5 ML UCUP PO PRN (00:08)
[2018-10-25 01:06] VITALS: O2SAT 96
[2018-10-25 03:11] LABS: HBsAG Nonreactive (Nonreactive); Hepatitis A IgM Antibody Nonreactive
[2018-10-25] MEDS: METRONIDAZOLE 500mg IVPB 500 MG/100 ML BAG IV SCH ×2 (05:17→11:31)
[2018-10-25 05:38] LABS: Absolute Lymphocytes (CBC) 1.6 K/uL (0.7-4.9); Absolute Monocytes 0.9 K/uL (0.1-1.3); Basophils % 0.4 % (0-1.3); Eosinophils % 1.6 % (0-4.4); Hematocrit 32.5 % (36.0-45.0); MPV 8.2 fL (7.6-11.3); Monocytes % 7.5 % (3.3-12.3); RBC Red Blood Cell Count 4.03 M/uL (3.86-4.86)
[2018-10-25] MEDS: INSULIN -REGULAR HUMAN 50 UNIT/0.5 ML ML SQ SCH ×2 (07:30→12:09)
[2018-10-25] MEDS: AMLODIPINE 5 MG TAB PO SCH (08:51)
[2018-10-25] MEDS: VITAMIN D 5,000 UNIT CAP PO SCH (08:51)
[2018-10-25] MEDS: CIPROFLOXACIN 400mg IV 400 MG/200 ML BAG IV SCH (08:51)
[2018-10-25] MEDS: PANTOPRAZOLE 40MG TABLET PO SCH (08:51)
[2018-10-25] MEDS: NACHLORIDE 0.45% 1,000 ML IV SCH (10:48)
--- NOTE | 2018-10-25 11:44 | P.DS ---
Admission Date: 10/23/18 Discharge Date: 10/25/18 Primary Care Provider: Dr Syed Disposition: ROUTINE DISCHARGE Discharge Condition: GOOD Reason for Admission: Nausea vomiting and diarrhea Consultations: Dr. Fischer, Gastroenterology Dr. Jones Nephrology - Problems (1) Acute kidney injury Current Visit: Yes Status: Acute (2) Diarrhea Current Visit: No Status: Acute Qualifiers: Diarrhea type: unspecified type Qualified Code(s): R19.7 - Diarrhea, unspecified (3) HTN (hypertension) Current Visit: Yes Status: Chronic Qualifiers: Hypertension type: essential hypertension Qualified Code(s): I10 - Essential (primary) hypertension (4) Hyperlipidemia Current Visit: Yes Status: Chronic Qualifiers: Hyperlipidemia type: mixed hyperlipidemia Qualified Code(s): E78.2 - Mixed hyperlipidemia (5) Diabetes Current Visit: Yes Status: Chronic Qualifiers: Diabetes mellitus type: type 2 Diabetes mellitus intermediate 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 Diabetes mellitus complication status: without complication Qualified Code(s): E11.9 - Type 2 diabetes mellitus without complications (6) Hypothyroidism Current Visit: Yes Status: Chronic Qualifiers: Hypothyroidism type: acquired Qualified Code(s): E03.9 - Hypothyroidism, unspecified (7) CKD (chronic kidney disease) Current Visit: Yes Status: Chronic Qualifiers: Chronic kidney disease stage: stage 3 (moderate) Qualified Code(s): N18.3 - Chronic kidney disease, stage 3 (moderate) (8) Moderate protein-calorie malnutrition Current Visit: No Status: Chronic (9) Bacteremia Current Visit: Yes Status: Acute (10) Hypocalcemia Current Visit: Yes Status: Acute (11) Hypomagnesemia Current Visit: Yes Status: Acute (12) Urinary tract infection Current Visit: Yes Status: Acute Qualifiers: Urinary tract infection type: acute cystitis Hematuria presence: without hematuria Qualified Code(s): N30.00 - Acute cystitis without hematuria (13) Leukocytosis Current Visit: Yes Status: Acute Qualifiers: Leukocytosis type: unspecified Qualified Code(s): D72.829 - Elevated white blood cell count, unspecified Brief History of Present Illness: This is a 68-year-old female with significant past medical history of diabetes, hypertension, hyperlipidemia, diverticulitis, who presented to the ED complaining of having diarrhea on and off for past 2 months. Patient stated that she was seeing her primary care doctor today and was asked to come to the ER for further workup. Patient stated that she had some lab work done which was consistent with elevated kidney enzymes and thus her primary care provider asked her to come to the ER. Patient stated that her diarrhea is nonbloody in nature. Patient also states that she has been having some on and off nausea and vomiting along with diarrhea. Patient was seen here in the hospital last month for similar complaints and was discharged with a diagnosis of viral gastroenteritis after imaging study revealed no acute abnormality. Patient has been referred to GI doctor by primary care doctor however has not been able to see the doctor just yet. Patient denies having any fever chills shortness of breath chest pain or any other associated symptoms at this time. In the ER patient was seen and examined. Lab work and imaging was done. Lab work and imaging was consistent with acute kidney injury most likely secondary to dehydration along with chronic diarrhea and thus patient was admitted to the hospital for further workup. Hospital Course: Patient was admitted for acute kidney injury along with diarrhea. Her acute kidney injury was likely secondary to the ibuprofen usage versus dehydration secondary chronic diarrhea. She was started on IV fluids, nephrology was consulted. Renal ultrasound done in the ER was negative for any acute abnormalities. There was a concern for CHF outpatient problems however her last echocardiogram done in 2018 was with ejection fraction of 76% and no diastolic dysfunction was noted at that time. Her creatinine improved slowly on IV fluids. Renal labs were sent, results were still pending. She will follow up with nephrology as an outpatient to follow up on labs and further management. Her diarrhea improved throughout the stay. GI was consulted, patient was evaluated by gastroenterology here in the hospital. Stool studies were done, stool cultures were negative for Shigella, Salmonella or Campylobacter. C. diff was also negative. She was started on IV antibiotics due to her elevated WBC count and neutrophils. He was decided and recommended that patient have outpatient follow up with Gastroenterology for further colonoscopy and workup. Patient stated that she would like to see Dr. Pena as she knows of him. His information was provided at discharge. Her stay was complicated by a urinary tract infection, which grew Klebsiella pneumonia, sensitive to ciprofloxacin. 1 of her blood culture bottles also positive for Klebsiella pneumonia, sensitive to ciprofloxacin. Patient continued to have leukocytosis, WBC trended up. The patient did have a urinary tract infection along with bacteremia, sensitive to ciprofloxacin but WBC count continues to trend up even though she was on on antibiotics. Lactic acid remained normal though pro calcitonin, ESR and CRP were elevated. Differential diagnosis here included autoimmune disease (kidney) versus inflammatory disease (colon d/t long-standing diarrhea) versus infectious process. Kidney workup is pending. Labs may take longer and patient will follow up as an outpatient with Nephrology Patient will be getting an outpatient GI workup, including colonoscopy to evaluate further for possibility of inflammatory bowel disease. Clinically, patient did not look septic as vital signs and remained stable and she remained afebrile for over 48 hr. Prior to discharge though, her WBC count did decrease, her creatinine was improving, pro calcitonin improved. She otherwise remained stable throughout the stay. Prior to discharge, she was alert oriented x3, hemodynamically stable and in no acute distress. She is ambulating without any concerns, tolerating oral diet. She was discharged on oral ciprofloxacin to complete a 14 day course and Flagyl oral to complete a 7 day course. She was recommended to follow up with her primary care physician in 2-3 days. She was recommended to follow up with Nephrology in 2 weeks. She was recommended to follow up with Gastroenterology in 1-2 weeks. Her diagnoses and treatment plan were explained to her. All questions were answered and she verbalized understanding. She was discharged home in a safe and stable manner. Vital Signs/Physical Exam: Temp Pulse Resp BP Pulse Ox 97.2 F 78 20 155/77 H 96 10/25/18 08:00 10/25/18 08:00 10/25/18 08:00 10/25/18 08:00 10/25/18 08:00 General: Alert, In no apparent distress, Oriented x3 HEENT: Atraumatic, PERRLA, EOMI Neck: Supple, JVD not distended Respiratory: Clear to auscultation bilaterally, Normal air movement Cardiovascular: Regular rate/rhythm, Normal S1 S2 Gastrointestinal: Normal bowel sounds, No tenderness Musculoskeletal: No tenderness Integumentary: No rashes Neurological: Normal speech, Normal tone, Normal affect Lymphatics: No axilla or inguinal lymphadenopathy Laboratory Data at Discharge: WBC 11.7 K/uL (4.3-10.9) H D 10/25/18 05:11 Hgb 10.7 g/dL (12.0-15.0) L 10/25/18 05:11 Hct 32.5 % (36.0-45.0) L 10/25/18 05:11 Plt Count 309 K/uL (152-406) 10/25/18 05:11 Sodium 138 mmol/L (136-145) 10/25/18 05:11 Potassium 4.0 mmol/L (3.5-5.1) 10/25/18 05:11 BUN 11 mg/dL (7-18) 10/25/18 05:11 Creatinine 1.31 mg/dL (0.55-1.3) H 10/25/18 05:11 Glucose 159 mg/dL (74-106) H 10/25/18 05:11 Phosphorus 2.6 mg/dL (2.5-4.9) 10/21/18 05:43 Magnesium 2.0 mg/dL (1.8-2.4) 10/25/18 05:11 Total Bilirubin 0.5 mg/dL (0.2-1.0) 10/23/18 05:19 AST 14 U/L (15-37) L 10/23/18 05:19 ALT 15 U/L (12-78) 10/23/18 05:19 Alkaline Phosphatase 105 U/L (45-117) 10/23/18 05:19 Home Medications: Amlodipine [Norvasc*] 10 mg PO DAILY 10/20/18 Aspirin [Aspirin EC 325 MG] 325 mg PO BEDTIME 10/20/18 Gabapentin [Neurontin*] 600 mg PO BEDTIME 10/20/18 Insulin NPH Hum/Reg Insulin Hm [Humulin 70/30 Kwikpen] 60 units SQ BREAKFAST 01/31 Levothyroxine [Synthroid*] 88 mcg PO [id number] 10/20/18 Metoprolol Succinate [Toprol Xl*] 100 mg PO DAILY 10/20/18 Pantoprazole [Protonix Tab*] 40 mg PO BEDTIME 10/20/18 Pravastatin Sodium [Pravachol] 80 mg PO BEDTIME 10/20/18 Sertraline [Zoloft*] 50 mg PO BEDTIME 10/20/18 Ciprofloxacin HCl 500 mg PO BID #18 tablet 10/25/18 metroNIDAZOLE [Flagyl] 500 mg PO Q8H #6 tablet 10/25/18 New Medications: Ciprofloxacin HCl 500 mg PO BID #18 tablet metroNIDAZOLE [Flagyl] 500 mg PO Q8H #6 tablet Patient Discharge Instructions: Please follow up with the primary care physician in 2-3 days. Please follow up with Gastroenterology in 1-2 weeks. Please follow up with Nephrology in 2 weeks. New medications: Ciprofloxacin and Flagyl, and antibiotics for your urinary tract infection, bacteremia and possible abdominal infection. Please return to the emergency room for worsening symptoms. Diet: AHA Activity: Ad jessy Followup: Nithin Pena MD [ASSOCIATE-ACTIVE - CAN ADMIT] - 1-2 Weeks Angie Johnson MD [COURTESY - CAN ADMIT] - 1-2 Weeks Rhys Taylor MD [Primary Care Provider] - 2-3 Days Time spent managing pt's care (in minutes): 55
[2018-10-25 12:37] VITALS: BP 159/78; TEMP 98.1
[2018-10-26 00:36] LABS: Lactoferrin, Stool <30.0 mcg/mL (<30.0)
== END 2018-10-25 13:15 | disposition home health service (06) | DRG 683 ==
LOC: ER 14:38 → ERHOLD 18:01 → 2ND 20:10 → OBSVTOIN 10-23 15:18
PROVIDERS: ADMIT Family Medicine; ATTEND Family Medicine
DX: N17.8 Other acute kidney failure (principal); E44.0 Moderate protein-calorie malnutrition; R78.81 Bacteremia; N30.00 Acute cystitis without hematuria; N14.1 Nephropathy induced by other drugs, medicaments and biological substances; E86.0 Dehydration; K52.9 Noninfective gastroenteritis and colitis, unspecified; E83.51 Hypocalcemia; E83.42 Hypomagnesemia; E03.9 Hypothyroidism, unspecified; E78.2 Mixed hyperlipidemia; E87.6 Hypokalemia; I12.9 Hypertensive chronic kidney disease with stage 1 through stage 4 chronic kidney disease, or unspecified chronic kidney disease; E11.22 Type 2 diabetes mellitus with diabetic chronic kidney disease; N18.3 Chronic kidney disease, stage 3 (moderate); T39.315A Adverse effect of propionic acid derivatives, initial encounter; T46.4X5A Adverse effect of angiotensin-converting-enzyme inhibitors, initial encounter; Z68.33 Body mass index [BMI] 33.0-33.9, adult
CPT/HCPCS: 36415; 71045; 76770; 80048; 80053; 80074; 81003; 81015; 82705; 82962; 83605; 83631; 83735; 84100; 84132; 84145; 84443; 85025; 85652; 86038; 86140; 86160; 86225; 87040; 87045; 87046; 87077; 87086; 87088; 87177; 87186; 87205; 87209; 87493; 89055; 96365; 96367; 97162; 99285; G0378; J0744; J2405; J3475; J7030

== ENCOUNTER 2018-11-23 11:28 | Emergency (ER) | payer OTHER ==
--- NOTE | 2018-11-23 12:02 | EKG ---
Test Date: 2018-11-23 Test Time: 11:47:54 Inspector Aligning: CLAUDINE MEASUREMENT RESULTS: Intervals: Rate: 52 CO: 146 QRSD: 98 QT: 456 QTc: 424 Enterprise: P: 53 CO: 146 QRS: 36 T: 55 INTERPRETIVE STATEMENTS: Sinus bradycardia Incomplete right bundle branch block Nonspecific T wave abnormality Abnormal ECG Compared to ECG 02/09/2018 19:17:45 T-wave abnormality now present Electronically Signed On 11-23-18 12:01:57 CDT by Enrrique Walsh
[2018-11-23 12:26] LABS: Absolute Lymphocytes (CBC) 1.9 K/uL (0.7-4.9); Absolute Monocytes 0.6 K/uL (0.1-1.3); Basophils % 0.7 % (0-1.3); Eosinophils % 1.8 % (0-4.4); Hematocrit 40.2 % (36.0-45.0); Lymphocytes % 21.8 % (15.3-44.8); MPV 8.6 fL (7.6-11.3); Monocytes % 7.2 % (3.3-12.3); RBC Red Blood Cell Count 4.86 M/uL (3.86-4.86)
[2018-11-23 12:39] LABS: Protime INR 1.02
[2018-11-23 12:46] LABS: ALT/SGPT 19 U/L (12-78); AST/SGOT 15 U/L (15-37); Albumin 3.6 g/dL (3.4-5.0); Alkaline Phosphatase 94 U/L (45-117); BUN Blood Urea Nitrogen 12 mg/dL (7-18); Bicarbonate 31 mmol/L (21-32); Bilirubin Direct 0.2 mg/dL (0-0.2); Bilirubin Total 0.5 mg/dL (0.2-1.0); Glucose Level 238 mg/dL (74-106); Magnesium 1.5 mg/dL (1.8-2.4); NT PRO-BNP 164 pg/mL (<125); Potassium 3.5 mmol/L (3.5-5.1); Protein, Total 8.1 g/dL (6.4-8.2); Sodium Level 137 mmol/L (136-145); Troponin (Emerg Dept Use Only) < 0.02 ng/mL (0.0-0.045)
--- NOTE | 2018-11-23 12:48 | RAD REPORT ---
EXAM DESCRIPTION: RAD - Chest Single View - 11/23/2018 12:43 pm CLINICAL HISTORY: Cough, abdominal pain COMPARISON: October 24 TECHNIQUE: AP portable chest image was obtained 1241 hours . FINDINGS: Lungs are clear. Heart and vasculature are normal. No measurable pleural effusion and no p neumothorax. No acute bony abnormality seen. No acute aortic findings suspected. IMPRESSION: No acute cardiopulmonary process. No significant interval change.
[2018-11-23 13:32] LABS: Urine Blood NEGATIVE (NEG); Urine Glucose NEGATIVE (NEG); Urine Protein NEGATIVE (NEG)
[2018-11-23] MEDS ORDERED: MECLIZINE HCL 12.5 MG TAB ONE (13:48)
[2018-11-23] MEDS ORDERED: ONDANSETRON 4 MG/2 ML VIAL ONE (13:48)
[2018-11-23] MEDS ORDERED: Magnesium Sulfate 2gm IVPB 2 G/50 ML BAG IV ONE (13:48)
[2018-11-23] MEDS ORDERED: NA CHLORIDE 0.9% 1,000 ML ONE (13:48)
[2018-11-23] MEDS ORDERED: CEFTRIAXONE/SWI 1gm 1 GM/10 ML SYR ONE (14:13)
--- NOTE | 2018-11-23 14:19 | RAD REPORT ---
EXAM DESCRIPTION: USCarotid Artery Bilateral11/23/2018 2:06 pm CLINICAL HISTORY: Syncope COMPARISON: 2012 FINDINGS: The velocity of the right internal carotid artery equals 103 cm/sec. The right ICA/CCA rat io 1.7 The velocity of the left internal carotid artery equals 93 cm/sec. The left ICA/CCA ratio 1.2 Mild plaque is present within the carotid arteries. The vertebral arteries demonstrate antegrade flow IMPRESSION: Mild plaque within the carotid arteries without evidence of a hemodynamically significan t stenosis NASCET criteria used. Mild 0-49% stenosis Moderate 50-69% stenosis Severe 70-99% stenosis
[2018-11-23] MEDS ORDERED: PANTOPRAZOLE 40 MG INJ ONE (14:43)
--- NOTE | 2018-11-23 14:47 | RAD REPORT ---
EXAM DESCRIPTION: CT - Head Brain Wo Cont - 11/23/2018 2:21 pm CLINICAL HISTORY: Dizziness COMPARISON: 2012 TECHNIQUE: Computed axial tomography of the head was obtained. IV contrast was not requested. All CT scans are performed using dose optimization technique as appropriate and may include automated exposure control or mA/KV adjustment according to patient size. FINDINGS: 2 centimeter low-density area within the right occipital lobe is unchanged compatible wit h an old infarction. Mild low-density areas within the deep white matter likely ischemic changes secondary to small vessel disease An intracranial bleed is not seen . The ventricles are normal in caliber. No extra-axial fluid collection is noted. Fluid within the sinuses/ mastoids is not seen. IMPRESSION: No acute intracranial abnormality is seen. If patient's symptoms persist MRI of the bra in would be recommended.
--- NOTE | 2018-11-23 15:40 | RAD REPORT ---
EXAM DESCRIPTION: MRI - Brain Wo Cont - 11/23/2018 3:26 pm CLINICAL HISTORY: Dizziness, weakness, stroke-like symptoms COMPARISON: CT head November 23 TECHNIQUE: Sagittal T1-weighted images were obtained along with axial PD, heavily T2-weighted and T2 -FLAIR images. Axial DWI and ADC mapping sequences were also obtained along with coronal heavily T2-w eighted images. FINDINGS: No intracranial hemorrhage, mass or acute infarction. There is no edema or shift of midlin e structures. No extra-axial fluid collections. Siegel-matter/white matter junction is preserved. Signa l voids are seen as a normal finding in the major intracranial vessels. Mild atrophy and chronic ischemic changes are present. Ventricles are in proportion to volume loss. Old infarction changes are present in the medial right occipital lobe. Mastoid air cells and paranasal sinuses are clear. IMPRESSION: No acute infarction. No acute intracranial finding. Atrophy and chronic ischemic changes are present. Small old infarction seen medial right occipital l obe.
--- NOTE | 2018-11-23 15:52 | ER ---
Nurse's Notes [facility] Name: Bertha Jones Age: 68 yrs Sex: Female : 1950 Arrival Date: 11/23/2018 Time: 11:31 Bed 18 Private MD: Diagnosis: Dizziness and giddiness;Type 2 diabetes mellitus;Hypomagnesemia;Vertigo of central origin, unspecified ear;Vertiginous syndromes in diseases classified elsewhere, unspecified ear;Urinary tract infection, site not specified;Unspecified kidney failure-insufficency Presentation: 11/23 11:32 Presenting complaint: Patient states: Thursday, i threw up several times that morning hj and i felt dizzy after that and my BP is high and my pulse is low- 51; reports generalized weakness; denies fever and chills;. Transition of care: patient was not received from another setting of care. Onset of symptoms was November 23, 2018. Risk Assessment: Do you want to hurt yourself or someone else? Patient reports no desire to harm self or others. Initial Sepsis Screen: Does the patient meet any 2 criteria? No. Patient's initial sepsis screen is negative. Does the patient have a suspected source of infection? No. Patient's initial sepsis screen is negative. Care prior to arrival: None. 11:32 Method Of Arrival: Ambulatory 11:32 Acuity: MACK 3 hj Triage Assessment: 11:35 General: Appears in no apparent distress. comfortable, Behavior is calm, cooperative, bp appropriate for age. Pain: Denies pain. EENT: No deficits noted. Neuro: Level of Consciousness is awake, alert, obeys commands, Oriented to person, place, time, situation, Appropriate for age Reports dizziness. Cardiovascular: No deficits noted. Respiratory: Airway is patent Respiratory effort is even, unlabored, Respiratory pattern is regular, symmetrical. GI: No signs and/or symptoms were reported involving the gastrointestinal system. : No signs and/or symptoms were reported regarding the genitourinary system. Derm: No deficits noted. Musculoskeletal: Circulation, motion, and sensation intact. Range of motion: intact in all extremities. Historical: - Allergies: 11:34 No Known Allergies; hj - PMHx: 11:34 Depression; Diabetes - NIDDM; Diverticulitis; High Cholesterol; Hypertension; hj Hypothyroidism; Pneumonia; Tachycardia; viral menigitus; - PSHx: 11:34 Hysterectomy; cataract; hj - Immunization history:: Adult Immunizations up to date. - Social history:: Smoking status: Patient/guardian denies using tobacco. - Family history:: not pertinent. - Ebola Screening: : No symptoms or risks identified at this time. Screenin:29 Abuse screen: Denies threats or abuse. Denies injuries from another. Nutritional bp screening: No deficits noted. Tuberculosis screening: No symptoms or risk factors identified. Fall Risk None identified. Assessment: 11:35 General: SEE TRIAGE NOTE. bp 12:30 Reassessment: ALL CURRENT ORDERS COMPLETED, RESULTS PENDING. bp 13:49 Reassessment: PT TO U/S. bp 15:21 Reassessment: PT RETURNED FROM MRI. bp 16:06 Reassessment: D/C ON HOLD FOR IVF INFUSION. bp 16:31 Reassessment: PT D/C HOME VIA W/C WITH FAMILY, DX WITH UTI AND VERTIGO. bp Vital Signs: 11:34 BP 178 / 80; Pulse 52; Resp 18; Temp 98.1(O); Pulse Ox 99% on R/A; Weight 90.72 kg; hj Height 5 ft. 5 in. (165.10 cm); Pain 0/10; 13:47 BP 197 / 71; Pulse 51; Resp 16; Pulse Ox 100% ; bp 15:21 BP 166 / 71; Pulse 50; Resp 14; Pulse Ox 99% ; bp 16:29 BP 174 / 75; Pulse 58; Resp 16; Temp 98; Pulse Ox 99% ; bp 11:34 Body Mass Index 33.28 (90.72 kg, 165.10 cm) ED Course: 11:31 Patient arrived in ED. hj 11:33 Triage completed. hj 11:35 Arm band placed on right wrist. hj 11:41 Boston Best, RN is Primary Nurse. bp 11:41 Klaus Bull MD is Attending Physician. gisele 12:05 EKG done, by tree trimming line technician. reviewed by Klaus Bull MD. sm3 12:08 Radiology exam delayed due to IV insertion attempt and/or patient not having ls3 appropriate IV at this time. 12:29 Patient has correct armband on for positive identification. Bed in low position. Call bp light in reach. Side rails up X2. Adult w/ patient. 12:30 Initial lab(s) drawn, by me, sent to lab. Inserted saline lock: 22 gauge in right jp3 antecubital area, using aseptic technique. Blood collected. 12:40 Urine collected: clean catch specimen, clear, barrett colored. Patient maintains SpO2 jp3 saturation greater than 95% on room air. 12:45 XRAY Chest (1 view) In Process Unspecified. EDMS 12:45 Lights dimmed. Warm blanket given. Pillow given. shelter monitor on. Pulse ox on. NIBP jp3 on. 14:11 US Carotid Artery Bilateral In Process Unspecified. EDMS 14:25 CT Head Brain wo Cont In Process Unspecified. EDMS 14:43 Patient moved to MRI via wheelchair. lc 15:27 Brain Wo Cont In Process Unspecified. EDMS 15:51 Esau Mendes MD is Referral Physician. gisele 16:33 No provider procedures requiring assistance completed. IV discontinued, intact, bp bleeding controlled, No redness/swelling at site. Pressure dressing applied. Administered Medications: 13:40 Drug: Zofran 4 mg Route: IVP; Site: right antecubital; bp 14:08 Follow up: Response: No adverse reaction bp 13:40 Drug: Meclizine 50 mg Route: PO; bp 14:07 Follow up: Response: Marked relief of symptoms bp 13:40 Drug: NS 0.9% 1000 ml Route: IV; Rate: 1 bolus; Site: right antecubital; bp 13:40 Drug: Magnesium Sulfate 2 grams Route: IVPB; Infused Over: 2 hrs; Site: right bp antecubital; 13:47 Drug: Rocephin - (cefTRIAXone) 1 grams Route: IVPB; Infused Over: 30 mins; Site: right bp antecubital; 14:15 Drug: ProTONIX 40 mg Route: IVP; Site: right antecubital; bp 15:57 Follow up: Response: No adverse reaction bp 16:00 Drug: Aspirin 162 mg Route: PO; bp 16:05 Follow up: Response: No adverse reaction bp Outcome: 15:51 Discharge ordered by . gisele 16:33 Discharged to home via wheelchair, with family. bp 16:33 Condition: stable 16:33 Discharge instructions given to patient, family, Instructed on discharge instructions, follow up and referral plans. medication usage, Demonstrated understanding of instructions, follow-up care, medications, Prescriptions given X 4. 16:35 Patient left the ED. bp Signatures: Dispatcher [employer] EDMS Klaus Bull MD MD cha Compean, Lorena lc Joaquin, Henry, RN RN hj Peltier, Brian, RN RN bp Montes, Shakira sm3 Willem Ceja jp3 Johanna Deluca ls3 Corrections: (The following items were deleted from the chart) 11:36 11:34 Pulse 52bpm; Resp 18bpm; Pulse Ox 99% RA; Temp 98.1F Oral; 90.72 kg; Height 5 ft. hj 5 in.; BMI: 33.2; Pain 0/10; hj 11:37 11:34 Pulse 52bpm; Resp 18bpm; Pulse Ox 99% RA; Temp 98.1F Oral; 90.72 kg; Height 5 ft. hj 5 in.; BMI: 33.2; Pain 0/10; hj
--- NOTE | 2018-11-23 15:52 | EDPHYS ---
Physician Documentation [facility] Name: Bertha Jones Age: 68 yrs Sex: Female : 1950 Arrival Date: 11/23/2018 Time: 11:31 Bed 18 Private MD: ED Physician Klaus Bull HPI: 11/23 13:28 This 68 yrs old Female presents to ER via Ambulatory with complaints of gisele Dizziness. 13:28 The patient presents with dizziness. Onset: The symptoms/episode began/occurred 4 gisele day(s) ago. Context: occurred. Modifying factors: The symptoms are alleviated by holding head still, the symptoms are aggravated by movement of head. Associated signs and symptoms: The patient has no apparent associated signs or symptoms. Severity of symptoms: At their worst the symptoms were mild in the emergency department the symptoms are unchanged. Patient's baseline: Neuro: alert and fully oriented. The patient has not experienced similar symptoms in the past. Historical: - Allergies: 11:34 No Known Allergies; hj - PMHx: 11:34 Depression; Diabetes - NIDDM; Diverticulitis; High Cholesterol; Hypertension; hj Hypothyroidism; Pneumonia; Tachycardia; viral menigitus; - PSHx: 11:34 Hysterectomy; cataract; hj - Immunization history:: Adult Immunizations up to date. - Social history:: Smoking status: Patient/guardian denies using tobacco. - Family history:: not pertinent. - Ebola Screening: : No symptoms or risks identified at this time. ROS: 13:28 Constitutional: Negative for fever, chills, and weight loss, Eyes: Negative for injury, gisele pain, redness, and discharge, ENT: Negative for injury, pain, and discharge, Neck: Negative for injury, pain, and swelling, Cardiovascular: Negative for chest pain, palpitations, and edema, Respiratory: Negative for shortness of breath, cough, wheezing, and pleuritic chest pain, Abdomen/GI: Negative for abdominal pain, nausea, vomiting, diarrhea, and constipation, Back: Negative for injury and pain, : Negative for injury, bleeding, discharge, and swelling, MS/Extremity: Negative for injury and deformity, Skin: Negative for injury, rash, and discoloration, Psych: Negative for depression, anxiety, suicide ideation, homicidal ideation, and hallucinations, Allergy/Immunology: Negative for hives, rash, and allergies, Endocrine: Negative for neck swelling, polydipsia, polyuria, polyphagia, and marked weight changes, Hematologic/Lymphatic: Negative for swollen nodes, abnormal bleeding, and unusual bruising. 13:28 Neuro: Positive for dizziness. Exam: 13:28 Constitutional: This is a well developed, well nourished patient who is awake, alert, gisele and in no acute distress. Head/Face: Normocephalic, atraumatic. Eyes: Pupils equal round and reactive to light, extra-ocular motions intact. Lids and lashes normal. Conjunctiva and sclera are non-icteric and not injected. Cornea within normal limits. Periorbital areas with no swelling, redness, or edema. ENT: Nares patent. No nasal discharge, no septal abnormalities noted. Tympanic membranes are normal and external auditory canals are clear. Oropharynx with no redness, swelling, or masses, exudates, or evidence of obstruction, uvula midline. Mucous membranes moist. Neck: Trachea midline, no thyromegaly or masses palpated, and no cervical lymphadenopathy. Supple, full range of motion without nuchal rigidity, or vertebral point tenderness. No Meningismus. Chest/axilla: Normal chest wall appearance and motion. Nontender with no deformity. No lesions are appreciated. Cardiovascular: Regular rate and rhythm with a normal S1 and S2. No gallops, murmurs, or rubs. Normal PMI, no JVD. No pulse deficits. Respiratory: Lungs have equal breath sounds bilaterally, clear to auscultation and percussion. No rales, rhonchi or wheezes noted. No increased work of breathing, no retractions or nasal flaring. Abdomen/GI: Soft, non-tender, with normal bowel sounds. No distension or tympany. No guarding or rebound. No evidence of tenderness throughout. Back: No spinal tenderness. No costovertebral tenderness. Full range of motion. Skin: Warm, dry with normal turgor. Normal color with no rashes, no lesions, and no evidence of cellulitis. MS/ Extremity: Pulses equal, no cyanosis. Neurovascular intact. Full, normal range of motion. Neuro: Awake and alert, GCS 15, oriented to person, place, time, and situation. Cranial nerves II-XII grossly intact. Motor strength 5/5 in all extremities. Sensory grossly intact. Cerebellar exam normal. Normal gait. Psych: Awake, alert, with orientation to person, place and time. Behavior, mood, and affect are within normal limits. 14:39 Neck: ROM/movement: is normal, no acute changes, Meningeal signs: are not present, [facility] Kernig's sign is negative, Brudzinski's sign is negative. Vital Signs: 11:34 BP 178 / 80; Pulse 52; Resp 18; Temp 98.1(O); Pulse Ox 99% on R/A; Weight 90.72 kg; hj Height 5 ft. 5 in. (165.10 cm); Pain 0/10; 13:47 BP 197 / 71; Pulse 51; Resp 16; Pulse Ox 100% ; bp 15:21 BP 166 / 71; Pulse 50; Resp 14; Pulse Ox 99% ; bp 16:29 BP 174 / 75; Pulse 58; Resp 16; Temp 98; Pulse Ox 99% ; bp 11:34 Body Mass Index 33.28 (90.72 kg, 165.10 cm) MDM: 11:41 Patient medically screened. [facility] 13:30 Data reviewed: vital signs, nurses notes, lab test result(s), EKG, radiologic studies, [facility] CT scan, doppler, MRI, plain films. 11/23 11:53 Order name: Basic Metabolic Panel; Complete Time: 13:28 [facility] 11/23 11:53 Order name: CBC with Diff; Complete Time: 13:28 [facility] 11/23 11:53 Order name: LFT's; Complete Time: 13:28 [facility] 11/23 11:53 Order name: Magnesium; Complete Time: 13:28 [facility] 11/23 11:53 Order name: NT PRO-BNP; Complete Time: 13:28 [facility] 11/23 11:53 Order name: PT-INR; Complete Time: 13:28 [facility] 11/23 11:53 Order name: Troponin (emerg Dept Use Only); Complete Time: 13:28 [facility] 11/23 11:53 Order name: XRAY Chest (1 view); Complete Time: 13:28 [facility] 11/23 11:53 Order name: Urine Culture [facility] 11/23 12:48 Order name: Urine Dipstick--Ancillary (enter results); Complete Time: 14:06 11/23 13:28 Order name: CT Head Brain wo Cont; Complete Time: 14:54 [facility] 11/23 13:28 Order name: US Carotid Artery Bilateral; Complete Time: 14:34 [facility] 11/23 14:08 Order name: Brain Wo Cont; Complete Time: 15:51 EDMS 11/23 11:53 Order name: EKG; Complete Time: 11:56 [facility] 11/23 11:53 Order name: Cardiac monitoring; Complete Time: 12:18 [facility] 11/23 11:53 Order name: EKG - Nurse/Tech; Complete Time: 12:18 [facility] 11/23 11:53 Order name: IV Saline Lock; Complete Time: 12:18 [facility] 11/23 11:53 Order name: Labs collected and sent; Complete Time: 12:18 [facility] 11/23 11:53 Order name: O2 Per Protocol; Complete Time: 12:18 [facility] 11/23 11:53 Order name: O2 Sat Monitoring; Complete Time: 12:18 [facility] 11/23 11:53 Order name: Urine Dipstick-Ancillary (obtain specimen); Complete Time: 12:32 [facility] Administered Medications: 13:40 Drug: Zofran 4 mg Route: IVP; Site: right antecubital; bp 14:08 Follow up: Response: No adverse reaction bp 13:40 Drug: Meclizine 50 mg Route: PO; bp 14:07 Follow up: Response: Marked relief of symptoms bp 13:40 Drug: NS 0.9% 1000 ml Route: IV; Rate: 1 bolus; Site: right antecubital; bp 13:40 Drug: Magnesium Sulfate 2 grams Route: IVPB; Infused Over: 2 hrs; Site: right bp antecubital; 13:47 Drug: Rocephin - (cefTRIAXone) 1 grams Route: IVPB; Infused Over: 30 mins; Site: right bp antecubital; 14:15 Drug: ProTONIX 40 mg Route: IVP; Site: right antecubital; bp 15:57 Follow up: Response: No adverse reaction bp 16:00 Drug: Aspirin 162 mg Route: PO; bp 16:05 Follow up: Response: No adverse reaction bp Disposition: 11/23/18 15:51 Discharged to Home. Impression: Dizziness and giddiness, Type 2 diabetes mellitus, Hypomagnesemia, Vertigo of central origin, unspecified ear, Vertiginous syndromes in diseases classified elsewhere, unspecified ear, Urinary tract infection, site not specified, Unspecified kidney failure - insufficency. - Condition is Stable. - Discharge Instructions: Benign Positional Vertigo, Type 2 Diabetes Mellitus, Diagnosis, Adult, Dizziness, Hypomagnesemia, Urinary Tract Infection, Adult, Vertigo, Urinary Tract Infection, Adult, [id number], Vertigo, Evpj-ub-Oijp, Aspirin and Your Heart, Type 2 Diabetes Mellitus, Diagnosis, Adult, Uqcw-ug-Klgk, Dizziness, Jmde-gr-Cnjw. - Prescriptions for Cipro 250 mg Oral Tablet - take 2 tablets by ORAL route every 12 hours; 14 tablet. Meclizine 25 mg Oral Tablet - take 1 tablet by ORAL route every 8 hours As needed; 30 tablet. Zofran 4 mg Oral Tablet - take 1 tablet by ORAL route every 12 hours As needed; 14 tablet. Protonix 40 mg Oral Tablet - take 1 tablet by ORAL route once daily; 30 tablet. - Medication Reconciliation Form, Thank You Letter, Antibiotic Education, Prescription Opioid Use form. - Follow up: Private Physician; When: 2 - 3 days; Reason: Recheck today's complaints, Continuance of care, Re-evaluation by your physician. Follow up: Esau Mendes; When: 2 - 3 days; Reason: Recheck today's complaints, Re-evaluation by your physician. - Problem is new. - Symptoms have improved. Signatures: Dispatcher [employer] [facility] Klaus Bull MD MD cha Joaquin, Henry, RN RN Boston Meek RN RN bp Corrections: (The following items were deleted from the chart) 14:07 13:30 MR STROKE PROTOCOL+MRI.RAD.BRZ ordered. [facility] 16:35 15:51 11/23/2018 15:51 Discharged to Home. Impression: Dizziness and giddiness; Type 2 bp diabetes mellitus; Hypomagnesemia; Vertigo of central origin, unspecified ear; Vertiginous syndromes in diseases classified elsewhere, unspecified ear; Urinary tract infection, site not specified; Unspecified kidney failure - insufficency. Condition is Stable. Discharge Instructions: Benign Positional Vertigo, Type 2 Diabetes Mellitus, Diagnosis, Adult, Dizziness, Urinary Tract Infection, Adult, Vertigo, Urinary Tract Infection, Adult, Tbow-ki-Ofmh, Vertigo, Ufwp-ba-Acwq, Aspirin and Your Heart, Type 2 Diabetes Mellitus, Diagnosis, Adult, Atul-zx-Kvqi, Dizziness, Bspt-bz-Iktn, Hypomagnesemia. Prescriptions for Cipro 250 mg Oral Tablet - take 2 tablets by ORAL route every 12 hours; 14 tablet, Meclizine 25 mg Oral Tablet - take 1 tablet by ORAL route every 8 hours As needed; 30 tablet, Zofran 4 mg Oral Tablet - take 1 tablet by ORAL route every 12 hours As needed; 14 tablet, Protonix 40 mg Oral Tablet - take 1 tablet by ORAL route once daily; 30 tablet. and Forms are Medication Reconciliation Form, Thank You Letter, Antibiotic Education, Prescription Opioid Use. Follow up: Private Physician; When: 2 - 3 days; Reason: Recheck today's complaints, Continuance of care, Re-evaluation by your physician. Follow up: Esau Mendes; When: 2 - 3 days; Reason: Recheck today's complaints, Re-evaluation by your physician. Problem is new. Symptoms have improved. gisele
[2018-11-23 16:55] VITALS: O2SAT 99
[2018-11-23 16:56] VITALS: BP 174/75; TEMP 98
== END 2018-11-23 16:35 | disposition home or self-care (01) ==
LOC: ER 11:28
DX: H81.49 Vertigo of central origin, unspecified ear (principal); H82.9 Vertiginous syndromes in diseases classified elsewhere, unspecified ear; E83.42 Hypomagnesemia; N39.0 Urinary tract infection, site not specified; E11.9 Type 2 diabetes mellitus without complications; N28.9 Disorder of kidney and ureter, unspecified; I10 Essential (primary) hypertension
CPT/HCPCS: 93005; 87088; 85025; 87086; 80048; 36415; 83735; 85610; 80076; 81003; 84484; 83880; 70450; 71045; 93880; 70551; C9113; J3475; J0696; J7030; J2405; 96374; 96375; 99285

== ENCOUNTER 2020-12-03 16:11 | Emergency (ER) | payer OTHER ==
--- OUTSIDE RECORDS SUMMARY | 2020-12-03 16:13 | XMS REPORT | Continuity of Care Document ---
:1950 Author Organization [facility] t Address [address] [place] [address] Dr. Bruner [address] [place] [id number] Care Team Providers Name Role Phone Unavailable Unavailable Unavailable Problems This patient has no known problems. Allergies, Adverse Reactions, Alerts This patient has no known allergies or adverse reactions. Medications This patient has no known medications. Procedures This patient has no known procedures. Results This patient has no known results.
--- NOTE | 2020-12-03 17:51 | RAD REPORT ---
EXAM DESCRIPTION: CT - Thorax Wo Con CLINICAL HISTORY: Chest pain PAIN COMPARISON: Chest For Pe Angio dated 02/10/2018 FINDINGS: The lungs are clear. No pleural thickening or pleural effusion. No pneumothorax. No axillary, mediastinal or hilar adenopathy. Healing left anterolateral eighth and ninth rib fractures seen. Cholecystectomy clips. All CT scans are performed using dose optimization technique as appropriate and may include automated exposure control or mA/KV adjustment according to patient size. IMPRESSION: Healing left anterolateral eighth and ninth rib fractures.
--- NOTE | 2020-12-03 18:05 | ER ---
Nurse's Notes [facility] Name: Bertha Jones Age: 70 yrs Sex: Female : 1950 Arrival Date: 12/03/2020 Time: 16:14 Bed 23 Private MD: Diagnosis: Multiple fractures of ribs, left side Presentation: 12/03 16:40 Chief complaint: Patient states: L lateral rib cage pain for 3 weeks after a fall. ll1 Thought she was getting better until yesterday when she lifted some heavy jugs. Severe pain since yesterday after putting away groceries. Coronavirus screen: Client denies travel out of the [place] in the last 14 days. At this time, the client does not indicate any symptoms associated with coronavirus-19. Ebola Screen: Patient denies travel to an Ebola-affected area in the 21 days before illness onset. Initial Sepsis Screen: Does the patient meet any 2 criteria? No. Patient's initial sepsis screen is negative. Does the patient have a suspected source of infection? No. Patient's initial sepsis screen is negative. Risk Assessment: Do you want to hurt yourself or someone else? Patient reports no desire to harm self or others. Onset of symptoms was November 13, 2020. 16:40 Method Of Arrival: Ambulatory ll1 16:40 Acuity: MACK 4 ll1 Historical: - Allergies: 16:44 Celery (Apium Graveolens) (Umbelliferae); ll1 16:44 Milk/dairy products; ll1 - PMHx: 16:44 Depression; Pneumonia; Tachycardia; Hypertension; High Cholesterol; Diverticulitis; ll1 Hypothyroidism; viral menigitus; Diabetes - NIDDM; - PSHx: 16:44 Hysterectomy; cataract; Cholecystectomy; ll1 - Immunization history:: Client reports receiving the 2nd dose of the Covid vaccine, Flu vaccine is up to date. - Social history:: Smoking status: Patient denies any tobacco usage or history of. Screenin:01 Abuse screen: Denies threats or abuse. Nutritional screening: No deficits noted. vg1 Tuberculosis screening: No symptoms or risk factors identified. Fall Risk Fall in past 12 months (25 points). No secondary diagnosis (0 pts). No IV (0 pts). Ambulatory Aid- None/Bed Rest/Nurse Assist (0 pts). Gait- Normal/Bed Rest/Wheelchair (0 pts) Mental Status- Overestimates/Forgets Limitations (15 pts.). Total Galeano Fall Scale indicates Low Risk Score (25-44 pts). Fall prevention measures have been instituted. Side Rails Up X 2 Placed close to Nursing Station. Assessment: 17:55 General: Appears in no apparent distress. comfortable, Behavior is calm, cooperative. vg1 Pain: Complains of pain in left lateral posterior chest Pain currently is 5 out of 10 on a pain scale. Quality of pain is described as sharp, Pain began about 3 weeks ago; pt stated tripped and fell. Neuro: Level of Consciousness is awake, alert, obeys commands, Oriented to person, place, time, situation. Cardiovascular: Patient's skin is warm and dry. Respiratory: Airway is patent Respiratory effort is even, unlabored, Breath sounds are clear bilaterally. GI: No signs and/or symptoms were reported involving the gastrointestinal system. : No signs and/or symptoms were reported regarding the genitourinary system. EENT: No signs and/or symptoms were reported regarding the EENT system. Derm: Skin is intact, is healthy with good turgor. Musculoskeletal: Circulation, motion, and sensation intact. pt states when lifting Left arm can feel sharp pain in left lateral chest. Vital Signs: 16:40 BP 121 / 71; Pulse 56; Resp 17; Temp 98.3; Pulse Ox 97% ; Weight 96.16 kg; Height 5 ft. ll1 5 in. (165.10 cm); Pain 10/10; 18:01 BP 139 / 67; Pulse 55; Resp 18; Pulse Ox 95% on R/A; vg1 16:40 Body Mass Index 35.28 (96.16 kg, 165.10 cm) ll1 ED Course: 16:14 Patient arrived in ED. as 16:42 Triage completed. ll1 16:44 Arm band placed on. ll1 17:23 [facility] kb 17:23 Shahana Munson MD is Attending Physician. kb 17:32 Lynn Blackwell, SURAJ is Primary Nurse. vg1 18:02 Patient has correct armband on for positive identification. Bed in low position. Call vg1 light in reach. Side rails up X2. 18:28 No provider procedures requiring assistance completed. Patient did not have IV access vg1 during this emergency room visit. Administered Medications: No medications were administered Outcome: 18:05 Discharge ordered by . riley 18:28 Discharged to home ambulatory. vg1 18:28 Condition: stable 18:28 Discharge instructions given to patient, Instructed on discharge instructions, follow up and referral plans. Demonstrated understanding of instructions, follow-up care. 18:29 Patient left the ED. vg1 Signatures: Jenny Martinez, YIC IRINA-Eleanor Clark Victoria, RN RN vg1 Gaetano Diaz, SURAJ RN 1
--- NOTE | 2020-12-03 18:06 | EDPHYS ---
Physician Documentation [facility] Name: Bertha Jones Age: 70 yrs Sex: Female : 1950 Arrival Date: 12/03/2020 Time: 16:14 Bed 23 Private MD: ED Physician Shahana Munson HPI: 12/04 00:44 This 70 yrs old Female presents to ER via Ambulatory with complaints of rib kb pain. 00:44 The patient or guardian reports chest pain that is located primarily in the left kb lateral posterior chest. Onset: The symptoms/episode began/occurred 3 week(s) ago. The pain does not radiate. Associated signs and symptoms: The patient has no apparent associated signs or symptoms. The chest pain is described as aching. Duration: The patient or guardian reports a single episode. Modifying factors: The symptoms are alleviated by nothing. the symptoms are aggravated by activity, cough, deep breath, movement, palpation of area. Severity of pain: At its worst the pain was moderate in the emergency department the pain is unchanged. The patient has not experienced similar symptoms in the past. The patient has not recently seen a physician. Pt reports she fell onto left ribs 3 weeks ago. States it was painful, but she figured it was bruised ribs and she tolerated the pain. States she lifted some heavy objects yesterday and the pain got worse so she wanted to make sure she didn't further injure herself. Historical: - Allergies: 12/03 16:44 Celery (Apium Graveolens) (Umbelliferae); ll1 16:44 Milk/dairy products; ll1 - PMHx: 16:44 Depression; Pneumonia; Tachycardia; Hypertension; High Cholesterol; Diverticulitis; ll1 Hypothyroidism; viral menigitus; Diabetes - NIDDM; - PSHx: 16:44 Hysterectomy; cataract; Cholecystectomy; ll1 - Immunization history:: Client reports receiving the 2nd dose of the Covid vaccine, Flu vaccine is up to date. - Social history:: Smoking status: Patient denies any tobacco usage or history of. ROS: 12/04 00:44 Constitutional: Negative for fever, chills, and weight loss, Respiratory: Negative for kb shortness of breath, cough, wheezing, and pleuritic chest pain. Cardiovascular: Positive for chest pain, with cough, with movement, of the left lateral posterior chest. All other systems are negative. Exam: 00:42 Constitutional: This is a well developed, well nourished patient who is awake, alert, kb and in no acute distress. ENT: Moist Mucous membranes Cardiovascular: Regular rate and rhythm with a normal S1 and S2. No gallops, murmurs, or rubs. No pulse deficits. Respiratory: Respirations even and unlabored. No increased work of breathing, no retractions or nasal flaring. Abdomen/GI: Soft, non-tender. No distention Skin: Warm, dry with normal turgor. Normal color. MS/ Extremity: Pulses equal, no cyanosis. Neurovascular intact. Full, normal range of motion. Neuro: Awake and alert, GCS 15, oriented to person, place, time, and situation. Moves all extremities. Normal gait. Psych: Awake, alert, with orientation to person, place and time. Behavior, mood, and affect are within normal limits. 00:42 Chest/axilla: Inspection: ecchymosis, is not appreciated, Palpation: tenderness, that is moderate, of the left lateral posterior chest, that totally reproduces the patient's complaints. Vital Signs: 12/03 16:40 BP 121 / 71; Pulse 56; Resp 17; Temp 98.3; Pulse Ox 97% ; Weight 96.16 kg; Height 5 ft. ll1 5 in. (165.10 cm); Pain 10/10; 18:01 BP 139 / 67; Pulse 55; Resp 18; Pulse Ox 95% on R/A; vg1 16:40 Body Mass Index 35.28 (96.16 kg, 165.10 cm) ll1 MDM: 17:24 Patient medically screened. kb 12/04 00:42 Data reviewed: vital signs, nurses notes. Data interpreted: Pulse oximetry: on room air kb is 95 %. Interpretation: normal. Counseling: I had a detailed discussion with the patient and/or guardian regarding: the historical points, exam findings, and any diagnostic results supporting the discharge/admit diagnosis, radiology results, the need for outpatient follow up, a family practitioner, to return to the emergency department if symptoms worsen or persist or if there are any questions or concerns that arise at home. 12/03 17:24 Order name: CT Chest Wo Con kb 12/03 17:53 Order name: CT; Complete Time: 17:55 EDMS Administered Medications: No medications were administered Disposition: 12/03/20 18:05 Discharged to Home. Impression: Multiple fractures of ribs, left side. - Condition is Stable. - Discharge Instructions: Rib Fracture, [id number]. - Medication Reconciliation Form, Thank You Letter, Antibiotic Education, Prescription Opioid Use form. - Follow up: Emergency Department; When: As needed; Reason: Worsening of condition. Follow up: Private Physician; When: 2 - 3 days; Reason: Recheck today's complaints, Continuance of care, Re-evaluation by your physician. Signatures: Dispatcher [employer] EDMS Jenny Martinez, IRINA-C COAL PASSER-Lynn Cox RN RN vg1 Gaetano Diaz RN RN ll1 Corrections: (The following items were deleted from the chart) 12/03 18:29 18:05 12/03/2020 18:05 Discharged to Home. Impression: Multiple fractures of ribs, left vg1 side. Condition is Stable. Forms are Medication Reconciliation Form, Thank You Letter, Antibiotic Education, Prescription Opioid Use. Follow up: Emergency Department; When: As needed; Reason: Worsening of condition. Follow up: Private Physician; When: 2 - 3 days; Reason: Recheck today's complaints, Continuance of care, Re-evaluation by your physician. kb
[2020-12-03 19:02] VITALS: TEMP 98.3
[2020-12-03 19:04] VITALS: BP 139/67; O2SAT 95
== END 2020-12-03 18:29 | disposition home or self-care (01) ==
LOC: ER 16:11
DX: S22.42XA Multiple fractures of ribs, left side, initial encounter for closed fracture (principal); F32.9 Major depressive disorder, single episode, unspecified; I10 Essential (primary) hypertension; E78.00 Pure hypercholesterolemia, unspecified; E03.9 Hypothyroidism, unspecified; E11.9 Type 2 diabetes mellitus without complications
CPT/HCPCS: 71250; 99281

== ENCOUNTER 2024-10-09 18:51 | Inpatient (IN) | payer OTHER ==
--- OUTSIDE RECORDS SUMMARY | 2024-10-09 18:55 | XMS REPORT | Continuity of Care Document ---
Author Name Unknown Address [address] [place] [address] [facility] Address [address] [place] [address] Care Team Providers Care Fitness Coordinator Name Role Phone Rhys Taylor Jr. Primary Care Physician [phone] Ashley CHENG Attending Clinician Unavailable MARCIN MORTON Attending Clinician Unavailable Marcin Eden Attending Clinician [phone] Unknown, Attending Attending Clinician Unavailab le Doctor Unassigned, [address] Attending Clinician U navailable Only, Ang Db Test Attending Clinician UnavailBonnie Beltran Attending Clinician [phone] BONNIE PERSAUD Attending Clinician Unavailable Payers Payer Name Policy Type Policy Number Effective Date Expirati on Date Source MEDICARE PART A \T\ [id number] 2016 00:00:00 CONTINENTAL BENEFITS [id number] 2016 00:00:00 Problems Condition Name Condition Details Condition Category Status Onset Date Resolution Date Last Treatment Date Treating Clinician Comments Source Acquired hammer toe of right foot Hammer toe of right foot Problem [place] [facility] No known active problems No known active problems Disease [facility] Allergies, Adverse Reactions, Alerts Allergy Name Allergy Type Status Severity Reaction(s) Onset Date Inactive Date Treating Clinician Comments Source NO KNOWN ALLERGIE S Drug Class Active [facility] Social History Social Habit Start Date Stop Date Quantity Comments Source History of Tobacco Use [place] [facility] Sex [facility] Exposure to SARS-CoV-2 (event) 2022-05-27 00:00:00 2022-06-06 11:50:00 Not sure [facility] History of Social function 2018-01-15 00:00:00 2018-01-15 00:00:00 [facility] Tobacco use and exposure 2018-01-15 00:00:00 2018-01-15 00:00:00 Smokeless tobacco non-user [facility] Alcohol intake 2018-01-15 00:00:00 2018-01-15 00:00:00 Current non-drinker of alcohol (finding) [facility] Smoking Status Start Date Stop Date Source Never Smoker [place] [facility] Medications Ordered Medication Name Filled Medication Name Start Date Stop Date Current Medication? Ordering Clinician Indication Dosage Frequency Signature (SIG) Comments Components Source Cefadroxil 500 MG Cefadroxil 500 MG 02-03 00:00: 00 No BID Cefadroxil 500 MG mometasone furoate (NASONEX NASAL) 2021-06 12:10: 51 Yes Use in each nostril. [facility] lisinopril 40 mg tablet 2021-06 12:10: 51 Yes 40mg Take 40 mg by mouth daily. [facility] Levothyroxi ne 100 mcg capsule 2021-06 12:10: 51 Yes Take by mouth. [facility] pantoprazol e sodium (PANTOPRAZO LE ORAL) 2021-06 12:10: 51 Yes Take by mouth. [facility] aspirin 325 mg tablet 2021-06 12:10: 51 Yes 325mg Take 325 mg by mouth daily. [facility] benzonatate 200 mg capsule 2021-06 00:00: 00 06-17 05:59 :00 No [id number] 200mg Take 1 capsule by mouth 3 (three) times daily as needed for Cough for up to 10 days. [facility] lisinopril 40 mg tablet 01-15 20:51: 40 Yes 40mg Take 40 mg by mouth daily. [facility] Levothyroxi ne 100 mcg capsule 01-15 20:51: 40 Yes Take by mouth. [facility] pantoprazol e sodium (PANTOPRAZO LE ORAL) 01-15 20:51: 40 Yes Take by mouth. [facility] aspirin 325 mg tablet 01-15 20:51: 40 Yes 325mg Take 325 mg by mouth daily. [facility] mometasone furoate (NASONEX NASAL) 01-15 20:51: 40 Yes Use in each nostril. [facility] codeine-gua ifenesin 10-100 mg/5 mL solution 01-15 00:00: 00 Yes [id number] 5mL Take 5 mL by mouth every 6 (six) hours as needed for Cough. [facility] albuterol 90 mcg/actuati on inhaler 01-15 00:00: 00 Yes [id number] 2{puff} Inhale 2 Puffs every 6 (six) hours as needed for Wheezing or Shortness of Breath. [facility] HUMULIN 70/30 U-100 INSULIN 100 unit/mL (70-30) suspension 12-10 00:00: 00 Yes [facility] metoprolol succinate XL 100 mg 24 hr tablet 11-04 00:00: 00 Yes [facility] amLODIPine 10 mg tablet 11-03 00:00: 00 Yes [facility] Fenofibrate 48 MG Fenofibrate 48 MG No Fenofibrat e 48 MG Methocarbam ol 500 MG Methocarbam ol 500 MG No Methocarba mol 500 MG Ramipril 1.25 MG Ramipril 1.25 MG No Ramipril 1.25 MG Metoprolol Succinate ER 25 MG Metoprolol Succinate ER 25 MG No Metoprolol Succinate ER 25 MG Pravastatin Sodium 80 MG Pravastatin Sodium 80 MG No Pravastati n Sodium 80 MG Sertraline HCl 50 MG Sertraline HCl 50 MG No Sertraline HCl 50 MG Gabapentin 300 MG Gabapentin 300 MG No Gabapentin 300 MG valACYclovi r HCl 1 GM valACYclovi r HCl 1 GM No valACYclov ir HCl 1 GM Doxazosin Mesylate 2 MG Doxazosin Mesylate 2 MG No Doxazosin Mesylate 2 MG Pantoprazol e Sodium 40 MG Pantoprazol e Sodium 40 MG No Pantoprazo le Sodium 40 MG Immunizations Ordered Immunization Name Filled Immunization Name Date Status Comments Source SARS-COV-2 COVID-19 MODERNA 12+ YRS VACCINE 2020-08-08 00:00:00 Completed [facility] SARS-COV-2 COVID-19 MODERNA VACCINE 2020-08-08 00:00:00 Completed [facility] SARS-COV-2 COVID-19 MODERNA 12+ YRS VACCINE 2020-08-08 00:00:00 Completed [facility] SARS-COV-2 COVID-19 MODERNA VACCINE 2020-07-11 00:00:00 Completed [facility] SARS-COV-2 COVID-19 MODERNA 12+ YRS VACCINE 2020-07-11 00:00:00 Completed [facility] SARS-COV-2 COVID-19 MODERNA 12+ YRS VACCINE 2020-07-11 00:00:00 Completed [facility] SARS-COV-2 COVID-19 MODERNA 12+ YRS VACCINE Unknown Completed [facility] SARS-COV-2 COVID-19 MODERNA 12+ YRS VACCINE Unknown Completed [facility] Vital Signs Vital Name Observation Time Observation Value Comments S ource Systolic blood pressure 2022-06-06 18:09:00 109 mm[Hg] [facility] Diastolic blood pressure 2022-06-06 18:09:00 64 mm[Hg] [facility] Heart rate 2022-06-06 18:09:00 72 /min [facility] Body temperature 2022-06-06 18:09:00 36.72 Lilly [facility] Respiratory rate 2022-06-06 18:09:00 16 /min [facility] Body height 2022-06-06 18:09:00 162.6 cm [facility] Body weight 2022-06-06 18:09:00 98.431 kg [facility] BMI 2022-06-06 18:09:00 37.25 kg/m2 [facility] Oxygen saturation in Arterial blood by Pulse oximetry 2022-06-06 18:09:00 97 /min [facility] Procedures Procedure Date / Time Performed Performing Clinicia n Source POCT SARS-COV-2 ANTIGEN (BINAX NOW) 2022-06-06 18:29:00 Griffin Christy [facility] POCT MOLECULAR FLU 2022-06-06 18:21:00 Unknown, Attend [facility] ASSIGNMENT OF BENEFITS 2022-06-06 17:51:25 Docto r Unassigned, [address] [facility] Encounters Start Date/Time End Date/Time Encounter Type Admission Type Attending Clinicians Care Facility Care Department Encounter ID Source 2024-02-04 14:23:01 Outpatient Vincent Jones [facility] [id number] [place] [facility] 2023-06-18 14:24:02 Outpatient Ashley CHENG [facility] [id number] [facility] 2024-05-19 00:00:00 2024-05-19 00:00:00 (F/U) Follow Up Visit [facility] [id number] [place] [facility] 2024-02-19 00:00:00 2024-02-19 00:00:00 Postop visit [facility] [id number] [place] [facility] 2024-02-11 00:00:00 2024-02-11 00:00:00 (PodSurger y) Podiatry Surgery [facility] [id number] [place] [facility] 2024-02-04 00:00:00 2024-02-04 00:00:00 Office Visit- New Pt.- Level 3 [facility] [id number] [place] [facility] 2022-06-06 12:00:00 2022-06-06 12:50:34 Outpatient R MARCIN MORTON [facility] [id number] [facility] 2022-06-06 12:00:00 2022-06-06 12:50:34 Urgent Care Marcin Morton Unknown, [facility] [id number] [facility] 2022-06-06 00:00:00 2022-06-06 00:00:00 Orders Only Doctor Unassigned, [address] [facility] [id number] [facility] 2021-06-14 17:45:00 2021-06-14 18:00:00 Laboratory Only Only, Ang Db Test Cori Bonnie [facility] GI[facility] [id number] [facility] 2021-06-14 17:45:00 2021-06-14 17:45:00 Outpatient R CORI BONNIE [facility] [id number] [facility] 2021-04-25 00:00:00 2021-04-25 00:00:00 Patient Secure Msg Doctor Unassigned, [address] [facility] [id number] [facility] 2021-04-25 00:00:00 2021-04-25 00:00:00 Patient Secure Msg Doctor Unassigned, [address] [facility] [id number] [facility] Results Test Description Test Time Test Comments Results Result Co mments Source [facility]BINAX NOW[facility]2022-06-06 18:29:00* Test Item Value Reference Range Interpretation Comme nts POCT SARS-COV-2 ANTIGEN (carmela t code = 97803-7) Not Detected Not Detected On board controls acceptable with C Line (test code = 3574) Yes [facility]
[2024-10-09 20:40] LABS: Absolute Basophils 0.1 K/uL (0-0.5); Absolute Eosinophils 0.1 K/uL (0-0.5); Absolute Lymphocytes (CBC) 1.5 K/uL (0.7-4.9); Absolute Monocytes 0.3 K/uL (0.1-1.3); Absolute Neutrophil 7.8 K/uL (1.8-8.0); Basophils % 0.8 % (0-1.3); Eosinophils % 1.4 % (0-4.4); Hematocrit 38.1 % (36.0-45.0); Hemoglobin 12.8 g/dL (12.0-15.0); MCH 28.5 pg (27.0-35.0); MCHC 33.7 g/dL (32.0-36.0); MCV 84.7 fL (80-100); MPV 9.3 fL (7.6-11.3); Monocytes % 3.4 % (3.3-12.3); Neutrophils % 79.4 % (41.7-73.7); Nucleated Red Blood Cells % 0.1 % (0-0); Platelets 154 thou/uL (152-406); Red Cell Distribution Width 14.2 % (12.1-15.2)
--- NOTE | 2024-10-09 20:40 | RAD REPORT ---
EXAM: CT brain without contrast HISTORY: STROKE ALERT COMPARISON: 11/23/2018 TECHNIQUE: Multiple contiguous axial images were obtained and a CT of the brain without contrast. Sag ittal and coronal reformats were performed. One or more of the following dose reduction techniques were used: Automated exposure control, adjust ment of the mA and/or kV according to patient size, and/or iterative reconstruction. FINDINGS: No evidence of hydrocephalus, intracranial hemorrhage, or extra-axial fluid collection. Mild brain atrophy with mild periventricular and deep white matter chronic microvascular ischemic ch anges present. Small area of gliosis right occipital lobe, compatible with old infarct. No evidence of midline shift or areas of brain edema. The calvarium is intact. The visualized paranasal sinuses and mastoid air cells are essentially clear . IMPRESSION: No evidence of acute intracranial abnormality. The findings were communicated with Evangelista Forrester in the ER at 10/09/2024 8:30 PM by telephone.
--- NOTE | 2024-10-09 20:44 | RAD REPORT ---
EXAMINATION: CTA HEAD CLINICAL INDICATION: STROKE ALERT TECHNIQUE: Axial CT images were obtained through the head after intravenous contrast utilizing angiog raphic protocol with 3D post-processing (maximum intensity projection images, volume rendered images and/or shaded surface rendered images). One or more of the following dose reduction technique s were used: Automated exposure control, adjustment of the mA and/or kV according to patient size, and/or iterative reconstruction. Unless otherwise specified, incidental findings do not require dedic ated imaging follow-up. COMPARISON: No prior exam. FINDINGS: ICA: The petrous, cavernous, and supraclinoid segments of the bilateral internal carotid arteries are normal. The ophthalmic artery origins are visualized and normal. The posterior communicating arteries are patent. DAVID: Anterior cerebral arteries are normal bilaterally. The anterior communicating artery is patent. MCA: Middle cerebral arteries are normal bilaterally. SCHOOL COUNSELLOR: Posterior cerebral arteries are normal bilaterally. Vertebrobasilar: The vertebral arteries are patent. The basilar artery is normal in appearance. 3D images confirm these findings. IMPRESSION: No significant flow abnormality is identified.
--- NOTE | 2024-10-09 20:50 | RAD REPORT ---
EXAMINATION: CTA NECK CLINICAL INDICATION: cva TECHNIQUE: Axial CT images were obtained from the aortic arch to the skull base after intravenous con trast utilizing angiographic protocol with 3D post-processing (maximum intensity projection images, volume rendered images and/or shaded surface rendered images). One or more of the following dose redu ction techniques were used: Automated exposure control, adjustment of the mA and/or kV according to patient size, and/or iterative reconstruction. Unless otherwise specified, incidental findings do not require dedicated imaging follow-up. COMPARISON: No prior exam. FINDINGS: AORTA: The imaged aortic arch is normal. CCA: The common carotid arteries are patent and normal in caliber. ICA/ECA: Bilateral internal and external carotid arteries are patent. Mild hard plaque is seen in bot h carotid bulbs slightly greater on the right. There is no significant internal carotid artery stenosis. VERTEBRAL: The cervical vertebral arteries are patent. The vertebral arteries are codominant. SOFT TISSUE: No significant neck soft tissue abnormalities. The visualized lung apices are clear. 3D images confirm these findings. IMPRESSION: No significant flow abnormality of the neck vessels is identified. NASCET criteria used. Mild 0-49% stenosis Moderate 50-69% stenosis Severe 70-99% stenosis
[2024-10-09 20:51] LABS: PT Prothrombin Time 11.5 SECONDS (10-13.0); PTT, Activated Partial Thromb 28.6 SECONDS (27.2-37.4); Protime INR 1.01
[2024-10-09 21:02] LABS: Albumin 3.4 g/dL (3.4-5.0); Anion Gap 7.8 mEq/L (5.0-15.0); Bilirubin Direct 0.2 mg/dL (0-0.2); Bilirubin Indirect, Calculated 0.4 mg/dL (0.2-0.8); Bilirubin Total 0.6 mg/dL (0.2-1.0); Globulin 3.9 g/dL (2.3-3.5); Potassium 3.8 mEq/L (3.5-5.1); Protein, Total 7.3 g/dL (6.4-8.2)
[2024-10-09 21:03] LABS: Albumin/Globulin Ratio 0.9 (1.1-1.8); Magnesium 1.7 mg/dL (1.6-2.4); Troponin High Sensitivity 12.4 pg/mL (<58.9)
[2024-10-09] MEDS ORDERED: ASPIRIN 325 MG TAB ONE (21:24)
[2024-10-09] MEDS ORDERED: MECLIZINE HCL 12.5 MG TAB ONE (21:25)
[2024-10-09] MEDS ORDERED: HYDRALAZINE HCL 20 MG/ML VIAL ONE (21:25)
--- NOTE | 2024-10-09 21:26 | RAD REPORT ---
EXAMINATION: ONE VIEW CHEST XR CLINICAL INDICATION: cva TECHNIQUE: Frontal chest projection is submitted. Examination is limited by patient positioning and t echnique. COMPARISON: 03/29/2023 FINDINGS: Mild bilateral pulmonary edema is suspected. The heart is moderately enlarged in size. No displaced f ractures identified. IMPRESSION: Mild CHF versus volume overload pattern is suspected.
--- NOTE | 2024-10-09 21:33 | EDPHYS ---
Physician Documentation [facility] Name: Bertha Jones Age: 74 yrs Sex: Female : 1950 Arrival Date: 10/09/2024 Time: 18:51 Bed 15 Private MD: ED Physician Matt Oscar HPI: 10/09 21:37 This 74 yrs old Female presents to ER via Wheelchair with complaints of Eye Problem, rt Dizziness, Nausea/Vomiting, General Weakness. 21:37 Patient presents to the ED with dizziness described as room spinning, nausea and rt unsteadiness on her feet and blurred vision. States that the symptoms started yesterday morning, greater than 24 hours prior to arrival. States that the symptoms are worsened today. Denies other acute complaints at this time, symptoms are moderate in severity, no other aggravating alleviating factors.. Historical: - Allergies: 20:00 Celery (Apium Graveolens) (Umbelliferae); al5 20:00 Milk/dairy products; al5 - PMHx: 20:00 Depression; Diabetes - NIDDM; Diverticulitis; High Cholesterol; Hypertension; al5 Hypothyroidism; Pneumonia; Tachycardia; viral menigitus; - PSHx: 20:00 Cholecystectomy; cataracts; hysterectomy; al5 - Immunization history:: Adult Immunizations up to date. - Infectious Disease History:: Denies. - Social history:: Smoking status: Patient denies any tobacco usage or history of. - Family history:: not pertinent. ROS: 21:37 Constitutional: Negative for fever, chills, and weight loss, Cardiovascular: Negative rt for chest pain, palpitations, and edema, Respiratory: Negative for shortness of breath, cough, wheezing, and pleuritic chest pain, MS/Extremity: Negative for injury and deformity, Skin: Negative for injury, rash, and discoloration, 21:37 Abdomen/GI: Positive for nausea and vomiting, 21:37 Neuro: Positive for dizziness, visual changes, Exam: 21:37 Constitutional: This is a well developed, well nourished patient who is awake, alert, rt and in no acute distress. Head/Face: Normocephalic, atraumatic. Chest/axilla: Normal chest wall appearance and motion. Nontender with no deformity. No lesions are appreciated. Cardiovascular: Regular rate and rhythm with a normal S1 and S2. No gallops, murmurs, or rubs. Normal PMI, no JVD. No pulse deficits. Respiratory: Lungs have equal breath sounds bilaterally, clear to auscultation and percussion. No rales, rhonchi or wheezes noted. No increased work of breathing, no retractions or nasal flaring. Abdomen/GI: Soft, non-tender, with normal bowel sounds. No distension or tympany. No guarding or rebound. No evidence of tenderness throughout. Skin: Warm, dry with normal turgor. Normal color with no rashes, no lesions, and no evidence of cellulitis. MS/ Extremity: Pulses equal, no cyanosis. Neurovascular intact. Full, normal range of motion. 21:37 Eyes: Left eye is unable to cross midline on lateral gaze. 21:37 Neuro: Speech normal, no other cranial nerve deficits, unable to complete [id number], strength and sensation intact in upper and lower extremity, 21:37 ECG was reviewed by the Attending Physician. rt Vital Signs: 19:59 BP 153 / 64; Pulse 55; Resp 16; Temp 98.4; Pulse Ox 94% on R/A; Weight 90.72 kg; Height al5 5 ft. 4 in. ; 20:11 BP 196 / 80; Pulse 55; cm10 20:40 BP 221 / 81; Pulse 63; Resp 18; Pulse Ox 96% on R/A; cm10 20:45 BP 219 / 94; Pulse 64; Resp 17; Pulse Ox 99% on R/A; cm10 21:00 BP 218 / 85; Pulse 65; Resp 15; Pulse Ox 98% ; cm10 21:15 BP 226 / 108; Pulse 63; Resp 15; Pulse Ox 95% ; cm10 21:30 BP 204 / 88; Pulse 64; Resp 15; Pulse Ox 98% ; cm10 21:45 BP 182 / 79; Pulse 59; Resp 18; Pulse Ox 98% ; cm10 22:00 BP 176 / 87; Pulse 71; Resp 15; Pulse Ox 98% ; cm10 19:59 Body Mass Index 34.33 (90.72 kg, 162.56 cm) al5 NIH Stroke Scale Scores: 20:15 NIHSS Score: 4 cm10 MDM: 20:10 Medical Screening Exam initiated rt 21:41 Differential diagnosis: Posterior CVA, vertigo. Data reviewed: vital signs, nurses rt notes, lab test result(s), EKG, radiologic studies. Consideration of Admission/Observation Patient was admitted/placed on observation. Management of patient was discussed with the following: Director Hedis: Discussed with Dr. Mendes, believes posterior circulation stroke is most likely etiology, recommends permissive hypertension with blood pressure goals being about 180 systolic. Will give small doses of hydralazine to not lower the patient's blood pressure too acutely.. I considered the following discharge prescriptions or medication management in the emergency department Medications were administered in the Emergency Department. See MAR. Independent interpretation of the following test(s) in the Emergency Department CT Scan: My interpretation is No intracranial hemorrhage seen on interpretation of CT scan images. Care significantly affected by the following chronic conditions: Diabetes, Hypertension. Counseling: I had a detailed discussion with the patient and/or guardian regarding the historical points, exam findings, and any diagnostic results supporting the discharge/admit diagnosis, lab results, radiology results, the need for further work-up and treatment in the hospital. Response to treatment: There is no appreciated change of the patient's symptoms at this time. 10/09 20:10 Order name: Basic Metabolic Panel; Complete Time: 21:04 rt 10/09 20:10 Order name: CBC with Diff; Complete Time: 20:59 rt 10/09 20:10 Order name: Hepatic Function; Complete Time: 21:04 rt 10/09 20:10 Order name: High Sensitivity Troponin; Complete Time: 21:04 rt 10/09 20:10 Order name: Magnesium; Complete Time: 21:04 rt 10/09 20:10 Order name: Protime (+inr); Complete Time: 20:59 rt 10/09 20:10 Order name: Ptt, Activated; Complete Time: 20:59 rt 10/09 20:17 Order name: Glucose, Ancillary Testing; Complete Time: 20:59 EDMS 10/09 20:54 Order name: Glucose, Ancillary Testing; Complete Time: 20:59 EDMS 10/09 22:10 Order name: C-Reactive Protein EDMS 10/09 22:10 Order name: C-Reactive Protein EDMS 10/09 22:10 Order name: CBC with Automated Diff EDMS 10/09 22:10 Order name: CBC with Automated Diff EDMS 10/09 22:10 Order name: Comprehensive Metabolic Panel EDMS 10/09 22:10 Order name: Comprehensive Metabolic Panel [facility] 10/09 22:10 Order name: Lipid Profile [facility] 10/09 22:10 Order name: Lipid Profile [facility] 10/09 22:10 Order name: Magnesium [facility] 10/09 22:10 Order name: Magnesium [facility] 10/09 22:10 Order name: Troponin High Sensitivity [facility] 10/09 22:10 Order name: Troponin High Sensitivity [facility] 10/09 22:10 Order name: Troponin High Sensitivity [facility] 10/09 22:10 Order name: Troponin High Sensitivity [facility] 10/10 05:06 Order name: Urinalysis w/ reflexes [facility] 10/09 20:10 Order name: CT Head Angio; Complete Time: 20:59 rt 10/09 20:10 Order name: CT Neck Angio; Complete Time: 20:59 rt 10/09 20:10 Order name: CT Stroke Brain w/o Contrast; Complete Time: 20:59 rt 10/09 20:10 Order name: Stroke CXR 1 View; Complete Time: 21:28 rt 10/09 22:10 Order name: Echo with Doppler [facility] 10/09 22:10 Order name: Brain Wo Cont [facility] 10/10 09:53 Order name: MRI [facility] 10/09 22:06 Order name: Social Service Consult [facility] 10/09 22:10 Order name: IRF Screen [facility] 10/09 22:10 Order name: Physical Therapy Consult [facility] 10/09 22:10 Order name: Speech Therapy Consult [facility] 10/09 20:10 Order name: Accucheck; Complete Time: 20:57 rt 10/09 20:10 Order name: Cardiac monitoring; Complete Time: 20:57 rt 10/09 20:10 Order name: EKG - Nurse/Tech; Complete Time: 20:57 rt 10/09 20:10 Order name: IV Saline Lock; Complete Time: 20:57 rt 10/09 20:10 Order name: Labs collected and sent; Complete Time: 20:57 rt 10/09 20:10 Order name: NPO; Complete Time: 20:57 rt 10/09 20:10 Order name: O2 Per Protocol; Complete Time: 20:57 rt 10/09 20:10 Order name: O2 Sat Monitoring; Complete Time: 20:57 rt 10/09 20:10 Order name: Stroke Swallow Screen; Complete Time: 21:41 rt EC:37 Rate is 63 beats/min. Rhythm is regular, Normal Sinus Rhythm with PACs, Right bundle rt branch block. QRS Crucible is Normal. CT interval is normal. QRS interval is normal. QT interval is normal. No Q waves. Clinical impression: NSR w/ Non-specific ST/T Changes. Administered Medications: 21:21 Not Given (Duplicate Order): [id number] mg IVP once rt 21:42 Drug: Meclizine PO 50 mg PO once Route: PO; cm10 22:06 Follow up: Response: No adverse reaction cm10 21:42 Drug: Aspirin PO 325 mg PO once Route: PO; cm10 22:06 Follow up: Response: No adverse reaction cm10 21:42 Drug: hydrALAZINE IVP 10 mg IVP once Route: IVP; Site: right antecubital; cm10 22:05 Follow up: Response: No adverse reaction; Blood pressure is lowered cm10 Point of Care Testing: Blood Glucose: 20:06 Blood Glucose: 174 mg/dL; al5 Ranges: Critical Glucose Levels:Adult <50 mg/dl or >400 mg/dl <40 mg/dl or >180 mg/dl Disposition Summary: 10/09/24 21:33 Hospitalization Ordered Notes: Hospitalization Status: Observation rt Provider: Shahana Chester rt Condition: Fair rt Problem: new rt Symptoms: are unchanged rt Bed/Room Type: Standard rt Location: Telemetry/MedSurg (observation)(10/10/24 13:54) bd Room Assignment: 229(10/10/24 13:54) bd Diagnosis - Acute CVA rt - Accelerated hypertension rt Forms: - Medication Reconciliation Form rt - SBAR form rt - Leadership Thank You Letter rt Critical care time excluding procedures: 21:41 Critical care time: Bedside Care: 30 minutes, Consultation: 10 minutes. Total time: 40 rt minutes NIH Stroke Scale - NIH Stroke Score Date: 10/09/2024 Time: 20:15 Total Score = 4 10. Dysarthria (speech clarity - read or repeat words) - 0(Normal) 11. Extinction and Inattention (visual/tactile/auditory/spatial/personal) - 0(No abnormality) 1a. Level of Consciousness (LOC) - 0(Alert) 1b. Level of Consciousness (LOC) (Month \T\ Age) - 0(Both) 1c. LOC Commands (Open \T\ Closes Eyes/Leather Coater) - 0(Both) 2. Best Gaze (Lateral Gaze Paresis) - 1(Partial gaze palsy) 3. Visual Field Loss - 1(Partial hemianopia) 4. Facial Palsy - 0(Normal) 5a. Left Arm: Motor (10-second hold) - 0(No drift) 5b. Right Arm: Motor (10-second hold) - 0(No drift) 6a. Left Leg: Motor (5-second hold - always test supine) - 0(No drift) 6b. Right Leg: Motor (5-second hold - always test supine) - 0(No drift) 7. Limb Ataxia (finger/nose \T\ heel/bruner - test with eyes open) - 1(Present in one limb) 8. Sensory Loss (pinprick arms/legs/face) - 1(Mild to moderate loss) 9. Best Language: Aphasia (description/naming/reading) - 0(No aphasia) Initials: cm10 Signatures: Dispatcher [employer] EDMS Aspen Jenkins bd Matt Oscar MD MD rt Charity Arnold rv1 Iris Zhu RN RN cm10 Neli Red RN RN al5 Corrections: (The following items were deleted from the chart) 23:58 21:33 Telemetry/MedSurg (observation) rt rv1 23:58 21:33 rt rv1 10/10 13:54 10/09 23:58 [facility] ER HOLD rv1 bd 10/10 13:54 10/09 23:58 ERHOLD- rv1 bd
--- NOTE | 2024-10-09 21:33 | ER ---
Nurse's Notes [facility] Name: Bertha Jones Age: 74 yrs Sex: Female : 1950 Arrival Date: 10/09/2024 Time: 18:51 Bed 15 Private MD: Diagnosis: Acute CVA;Accelerated hypertension Presentation: 10/09 19:59 Chief complaint: Patient states: burry vision, leathargy, bilateral weakness, al5 dizziness, n/v starting yesterday, got worse today. Coronavirus screen: At this time, the client does not indicate any symptoms associated with coronavirus-19. Ebola Screen: No symptoms or risks identified at this time. Initial Sepsis Screen: Does the patient meet any 2 criteria? No. Patient's initial sepsis screen is negative. Does the patient have a suspected source of infection? No. Patient's initial sepsis screen is negative. Risk Assessment: Do you want to hurt yourself or someone else? Patient reports no desire to harm self or others. Onset of symptoms was October 08, 2024. 19:59 Method Of Arrival: Wheelchair al5 19:59 Acuity: MACK 3 al5 Historical: - Allergies: 20:00 Celery (Apium Graveolens) (Umbelliferae); al5 20:00 Milk/dairy products; al5 - PMHx: 20:00 Depression; Diabetes - NIDDM; Diverticulitis; High Cholesterol; Hypertension; al5 Hypothyroidism; Pneumonia; Tachycardia; viral menigitus; - PSHx: 20:00 Cholecystectomy; cataracts; hysterectomy; al5 - Immunization history:: Adult Immunizations up to date. - Infectious Disease History:: Denies. - Social history:: Smoking status: Patient denies any tobacco usage or history of. - Family history:: not pertinent. Screenin:01 [facility] ED Fall Risk Assessment (Adult) History of falling in the last 3 months, al5 including since admission No falls in past 3 months (0 pts) Confusion or Disorientation No (0 pts) Intoxicated or Sedated No (0 pts) Impaired Gait Yes (1 pt) Mobility Assist Device Used Yes (1 pt) Altered Elimination Yes (1 pt) Score/Fall Risk Level 3 or more points = High Risk Maintained a safe environment. Abuse screen: Denies threats or abuse. Denies injuries from another. Nutritional screening: No deficits noted. Tuberculosis screening: No symptoms or risk factors identified. 21:35 [place] Swallow Protocol Exclusion Criteria: Unable to remain alert for testing: No NPO cm10 for medical/surgical reason by provider order No Tracheostomy tube present No No thin liquids due to preexisting dysphagia/baseline modified diet thickened liquids No Exclusion Criteria Result: Proceed Brief Cognitive Screen What is your name? Normal, Where are you right now? Normal, What year is it? Normal. Oral Mechanism Examination Facial Symmetry: Normal, Motion: Normal, Lip Closure: Normal, Oral Mechanism Result: Normal. 3 oz Water Swallow Challenge: Pt able to drink all water without stopping, coughing, choking or throat clearing: Yes Result: PASS. Assessment: 20:13 General: STROKE ALERT CALLED AT THIS TIME.. cm10 20:15 General: Appears in no apparent distress. comfortable, Behavior is calm, cooperative. cm10 20:15 Pain: Denies pain. Neuro: No deficits noted. Level of Consciousness is awake, alert, cm10 obeys commands, Oriented to person, place, time, situation, Appropriate for age. Neuro: Reports blurred vision dizziness. Respiratory: No deficits noted. Airway is patent Respiratory effort is even, unlabored, Respiratory pattern is regular, symmetrical. GI: Abdomen is non-distended. Vital Signs: 19:59 BP 153 / 64; Pulse 55; Resp 16; Temp 98.4; Pulse Ox 94% on R/A; Weight 90.72 kg; Height al5 5 ft. 4 in. ; 20:11 BP 196 / 80; Pulse 55; cm10 20:40 BP 221 / 81; Pulse 63; Resp 18; Pulse Ox 96% on R/A; cm10 20:45 BP 219 / 94; Pulse 64; Resp 17; Pulse Ox 99% on R/A; cm10 21:00 BP 218 / 85; Pulse 65; Resp 15; Pulse Ox 98% ; cm10 21:15 BP 226 / 108; Pulse 63; Resp 15; Pulse Ox 95% ; cm10 21:30 BP 204 / 88; Pulse 64; Resp 15; Pulse Ox 98% ; cm10 21:45 BP 182 / 79; Pulse 59; Resp 18; Pulse Ox 98% ; cm10 22:00 BP 176 / 87; Pulse 71; Resp 15; Pulse Ox 98% ; cm10 19:59 Body Mass Index 34.33 (90.72 kg, 162.56 cm) al5 NIH Stroke Scale Scores: 20:15 NIHSS Score: 4 cm10 ED Course: 19:22 Patient arrived in ED. cj3 19:24 Matt Oscar MD is Attending Physician. rt 20:00 Triage completed. al5 20:00 Arm band placed on right wrist. Patient placed in waiting room, in view of staff al5 members, Patient notified of wait time. 20:01 Patient has correct armband on for positive identification. Provided Education on: al5 notification of wait time. 20:01 No provider procedures requiring assistance completed. al5 20:15 RN/CHECK PILOT escort patient out of department to CT scan. cm10 20:22 Inserted saline lock: 20 gauge in right antecubital area, using aseptic technique. cm10 Blood collected. Flushed with 10 mL NS. 20:22 Initial lab(s) drawn, by me, sent to lab. cm10 20:32 CT Head Angio In Process Unspecified. EDMS 20:32 CT Neck Angio In Process Unspecified. EDMS 20:32 CT Stroke Brain w/o Contrast In Process Unspecified. EDMS 20:50 EKG done, by ED staff, reviewed by Matt Oscar MD. cm10 20:55 Iris Zhu, RN is Primary Nurse. cm10 21:24 Stroke CXR 1 View In Process Unspecified. EDMS 21:32 Shahana Chester MD is Hospitalizing Provider. rt 22:00 Patient admitted, IV remains in place. al5 10/10 07:04 Primary Nurse role handed off by Iris Zhu, SURAJ bd 07:08 Boston Best, RN is Primary Nurse. bp Administered Medications: 10/09 21:21 Not Given (Duplicate Order): [id number] mg IVP once rt 21:42 Drug: Meclizine PO 50 mg PO once Route: PO; cm10 22:06 Follow up: Response: No adverse reaction cm10 21:42 Drug: Aspirin PO 325 mg PO once Route: PO; cm10 22:06 Follow up: Response: No adverse reaction cm10 21:42 Drug: hydrALAZINE IVP 10 mg IVP once Route: IVP; Site: right antecubital; cm10 22:05 Follow up: Response: No adverse reaction; Blood pressure is lowered cm10 Medication: 20:01 VIS not applicable for this client. al5 Point of Care Testing: Blood Glucose: 20:06 Blood Glucose: 174 mg/dL; al5 Ranges: Outcome: 21:33 Decision to Hospitalize by Provider. rt 22:00 Admitted to ER Hold. Please see [facility] for further documentation. al5 22:00 Condition: stable 22:00 Instructed on the need for admit, 10/10 15:31 Patient left the ED. bc6 NIH Stroke Scale - NIH Stroke Score Date: 10/09/2024 Time: 20:15 Total Score = 4 10. Dysarthria (speech clarity - read or repeat words) - 0(Normal) 11. Extinction and Inattention (visual/tactile/auditory/spatial/personal) - 0(No abnormality) 1a. Level of Consciousness (LOC) - 0(Alert) 1b. Level of Consciousness (LOC) (Month \T\ Age) - 0(Both) 1c. LOC Commands (Open \T\ Closes Eyes/Estimate Clerk) - 0(Both) 2. Best Gaze (Lateral Gaze Paresis) - 1(Partial gaze palsy) 3. Visual Field Loss - 1(Partial hemianopia) 4. Facial Palsy - 0(Normal) 5a. Left Arm: Motor (10-second hold) - 0(No drift) 5b. Right Arm: Motor (10-second hold) - 0(No drift) 6a. Left Leg: Motor (5-second hold - always test supine) - 0(No drift) 6b. Right Leg: Motor (5-second hold - always test supine) - 0(No drift) 7. Limb Ataxia (finger/nose \T\ heel/bruner - test with eyes open) - 1(Present in one limb) 8. Sensory Loss (pinprick arms/legs/face) - 1(Mild to moderate loss) 9. Best Language: Aphasia (description/naming/reading) - 0(No aphasia) Initials: cm10 Signatures: Dispatcher [employer] EDMS Aspen Jenkins Brian, RN RN Matt Campo MD MD rt Lori Mancilla bc6 Iris Zhu RN RN cm10 Neli Red RN RN al5 Marilyn Gandara cj3 Corrections: (The following items were deleted from the chart) 10/09 21:42 20:01 Reassessment: see triage assessment al5 cm10
--- NOTE | 2024-10-09 22:01 | P.HP ---
Certification for Inpatient Patient admitted to: Inpatient With expected LOS: >2 Midnights Patient will require the following post-hospital care: Rehabilitation Practitioner: I am a practitioner with admitting privileges, knowledge of patient current condition, hospital course, and medical plan of care. Services: Services provided to patient in accordance with Admission requirements found in Title 42 Section 412.3 of the Code of Federal Regulations Patient History Date of Service: 10/09/24 Reason for admission: Acute CVA; visual abnormalities and ataxia History of Present Illness: Patient is a 74-year-old female who noticed last night that she was having issues with her vision. She was having a hard time focusing and she got really nauseated. She wanted to get up and ambulate but she was really unsteady so she decided to sit back down. She notified her family this morning and she finally came into the ER this evening. In the ER patient's workup and clinical exam appears to have acute posterior circulation CVA. Patient NIH score was 6. Patient had ataxia in both limbs she had the left leg and the left arm motor drift and she seemed like she had her nasolabial fold on the left side are little flat and she has partial hemianopia on the right visual field. At this time patient will be admitted to the hospital for further workup. CT angio was negative and CT of the head was negative. MRI of the brain is pending. ER physician spoke to neurology and they agreed with admission to the hospital here. Will continue with antiplatelet therapy and statin therapy. Patient blood pressure is 220/100. Patient's mean arterial pressure was 147 and will try to decrease it down to about 110 tonight. Await for further workup in the morning. Will also get an echocardiogram and carotid Doppler. Allergies No Known Drug Allergies Allergy (Verified 09/12/18 01:10) Unknown Home Medications: Amlodipine [Norvasc*] 10 mg PO DAILY 10/20/18 Aspirin [Aspirin EC 325 MG] 325 mg PO BEDTIME 10/20/18 Gabapentin [Neurontin*] 600 mg PO BEDTIME 10/20/18 Insulin NPH Hum/Reg Insulin Hm [Humulin 70/30 Kwikpen] 60 units SQ BREAKFAST 10/20/18 Levothyroxine [Synthroid*] 88 mcg PO [id number] 10/20/18 Metoprolol Succinate [Toprol Xl*] 100 mg PO DAILY 10/20/18 Pantoprazole [Protonix Tab*] 40 mg PO BEDTIME 10/20/18 Pravastatin Sodium [Pravachol] 80 mg PO BEDTIME 10/20/18 Sertraline [Zoloft*] 50 mg PO BEDTIME 10/20/18 Ciprofloxacin HCl 500 mg PO BID #18 tablet 10/25/18 metroNIDAZOLE [Flagyl] 500 mg PO Q8H #6 tablet 10/25/18 - Past Medical/Surgical History Diabetic: Yes -: DM -: diverticulitis -: high cholesterol -: HTN -: hypothyroidism -: tachycardia -: viral meningitis -: Pneumonia -: cholecystectomy -: hysterectomy -: cataract both eyes - Family History Father Medical History: Hypertension Notes: asbestosis Mother Medical History: Hypertension, Diabetes - Social History Smoking Status: Former smoker Alcohol use: No CD- Drugs: No Caffeine use: Yes Review of Systems 10-point ROS is otherwise unremarkable Physical Examination - Vital Signs Temperature: 98 F Blood Pressure: 220/110 Pulse: 80 Respirations: 18 Pulse Ox (%): 95 - Physical Exam General: Alert, In no apparent distress, Oriented x3 HEENT: Atraumatic, PERRLA, Mucous membr. moist/pink, EOMI, Sclerae nonicteric Neck: Supple, 2+ carotid pulse no bruit, No LAD, Without JVD or thyroid abnormality Respiratory: Clear to auscultation bilaterally, Normal air movement Cardiovascular: Regular rate/rhythm, Normal S1 S2 Gastrointestinal: Normal bowel sounds, Soft and benign, Non-distended, No tenderness Musculoskeletal: No clubbing, No swelling, No tenderness Integumentary: No rashes Neurological: Normal speech, Normal tone, Sensation intact, Normal affect, Abnormal gait, Abnormal strength, Abnormal cranial nerve function Lymphatics: No axilla or inguinal lymphadenopathy - Studies Laboratory Data (last 24 hrs) 10/09/24 10/09/24 10/09/24 20:22 20:22 20:22 WBC 9.80 Hgb 12.8 Hct 38.1 Plt Count 154 PT 11.5 INR 1.01 APTT 28.6 Sodium 137 Potassium 3.8 BUN 25 H Creatinine 1.71 H Glucose 199 H Magnesium 1.7 Total Bilirubin 0.6 AST 21 ALT 19 Alkaline Phosphatase 65 Assessment & Plan - Problems (Diagnosis) (1) 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 Current Visit: Yes Status: Acute (2) CHF (congestive heart failure) Onset Date: 02/10/18 Current Visit: No Status: Chronic Qualifiers: Heart failure type: unspecified Heart failure chronicity: chronic Qualified Code(s): I50.9 - Heart failure, unspecified (3) CKD (chronic kidney disease) Current Visit: No Status: Chronic Qualifiers: Chronic kidney disease stage: stage 3 (moderate) (4) Diabetes Current Visit: No Status: Chronic Qualifiers: Diabetes mellitus type: type 2 Diabetes mellitus house officer insulin use: without house officer use Diabetes mellitus complication status: without complication Qualified Code(s): E11.9 - Type 2 diabetes mellitus without complications (5) HTN (hypertension) Current Visit: No Status: Chronic Qualifiers: Hypertension type: essential hypertension Qualified Code(s): I10 - Essential (primary) hypertension (6) Hyperlipidemia Current Visit: No Status: Chronic Qualifiers: Hyperlipidemia type: mixed hyperlipidemia Qualified Code(s): E78.2 - Mixed hyperlipidemia (7) Hypothyroidism Current Visit: No Status: Chronic Qualifiers: Hypothyroidism type: acquired Qualified Code(s): E03.9 - Hypothyroidism, unspecified - Plan 1. MRI of the brain in a.m. 2. Antiplatelet and statin therapy; patient on full dose aspirin at home and will add Plavix to the regimen 3. Lipid profile in a.m. 4. Physical therapy and speech therapy consultation 5. DVT prophylaxis 6. Neurochecks every 4 hours 7. Reassess stroke scale each shift 8. Resume antihypertensives and decrease MAP by 25% from 147 to110. 9. Will discuss the case with neurology in the morning and will probably need inpatient rehab depending on how physical therapy goes. 10. GI and DVT prophylaxis Discharge Plan: Home Plan to discharge in: Greater than 2 days - Advance Directives Does patient have a Living Will: No Does patient have a Durable POA for Healthcare: No - Code Status/Comfort Care Code Status Assessed: Yes Code Status: Full Code Critical Care: No Time Spent Managing PTS Care (In Minutes): 45
[2024-10-10] MEDS ORDERED: NA CHLORIDE 0.9% 1,000 ML ONE (02:20)
[2024-10-10] MEDS ORDERED: AMLODIPINE 10 MG TAB ONE ×2 (02:20→09:11)
[2024-10-10] MEDS ORDERED: CLOPIDOGREL 75 MG TABLET ONE ×2 (02:20→09:11)
[2024-10-10] MEDS: CLOPIDOGREL 75 MG TABLET PO ONE (02:28)
[2024-10-10] MEDS: ACETAMINOPHEN 500 MG TAB PO PRN (02:28)
[2024-10-10] MEDS: AMLODIPINE 5 MG TAB PO ONE (02:28)
[2024-10-10] MEDS: NA CHLORIDE 0.9% 1,000 ML IV SCH (02:28)
[2024-10-10] MEDS ORDERED: ACETAMINOPHEN 500 MG TAB ONE (02:38)
[2024-10-10 05:05] LABS: Specific Gravity > 1.030 (1.005-1.030); Sqamous Epithelial <5 /HPF (None Seen); Urine Bacteria >50 /HPF (<20); Urine Bilirubin NEGATIVE (Negative); Urine Blood Negative (Negative); Urine Clarity Extremely Turbid (Clear); Urine Color Light-Yellow (Yellow); Urine Culture Reflex Order NOT NEEDED; Urine Glucose TRACE (Negative); Urine Ketones NEGATIVE (Negative); Urine Microscopic Reflex YN ORDER UMIC; Urine Nitrite NEGATIVE (Negative); Urine Protein 1+ (Negative); Urine RBC None Seen /HPF (None Seen); Urine Urobilinogen Normal (Normal); Urine WBC <5 /HPF (<5)
[2024-10-10 05:10] LABS: Absolute Eosinophils 0.1 K/uL (0-0.5); Absolute Lymphocytes (CBC) 1.9 K/uL (0.7-4.9); Absolute Monocytes 0.4 K/uL (0.1-1.3); Absolute Neutrophil 6.5 K/uL (1.8-8.0); Basophils % 0.5 % (0-1.3); Eosinophils % 0.8 % (0-4.4); Hematocrit 35.8 % (36.0-45.0); Hemoglobin 12.3 g/dL (12.0-15.0); Lymphocytes % 21.7 % (15.3-44.8); MCH 28.6 pg (27.0-35.0); MCHC 34.2 g/dL (32.0-36.0); MCV 83.6 fL (80-100); Nucleated Red Blood Cells % 0.1 % (0-0); Platelets 185 thou/uL (152-406); RBC Red Blood Cell Count 4.29 M/uL (3.86-4.86); Red Cell Distribution Width 14.2 % (12.1-15.2)
[2024-10-10 05:22] LABS: Albumin 3.1 g/dL (3.4-5.0); Albumin/Globulin Ratio 0.8 (1.1-1.8); Anion Gap 9.7 mEq/L (5.0-15.0); Bilirubin Total 0.5 mg/dL (0.2-1.0); C-Reactive Protein 4.07 mg/L (<3.00); Globulin 3.7 g/dL (2.3-3.5); Magnesium 1.7 mg/dL (1.6-2.4); Potassium 3.7 mEq/L (3.5-5.1); Protein, Total 6.8 g/dL (6.4-8.2); Troponin High Sensitivity 19.1 pg/mL (<58.9)
[2024-10-10] MEDS: LEVOTHYROXINE SOD 0.088 MG TAB PO SCH (06:00)
[2024-10-10] MEDS: METOPROLOL XL 50 MG TAB PO SCH (09:00)
[2024-10-10] MEDS: ASPIRIN EC 81 MG TAB PO SCH (09:00)
[2024-10-10] MEDS: CLOPIDOGREL 75 MG TABLET PO SCH (09:00)
[2024-10-10] MEDS: AMLODIPINE 10 MG TAB PO SCH (09:00)
[2024-10-10] MEDS ORDERED: METOPROLOL XL 50 MG TAB PO ONE (09:11)
[2024-10-10] MEDS ORDERED: ASPIRIN 325 MG TAB ONE (09:11)
--- NOTE | 2024-10-10 09:53 | RAD REPORT ---
EXAMINATION: MRI BRAIN WITHOUT CONTRAST CLINICAL INDICATION: CHEESEMAKER CVA TECHNIQUE: Multiplanar multisequence MR images of the brain were obtained without intravenous contras t. Unless otherwise specified, incidental findings do not require dedicated imaging follow-up. COMPARISON: 10/09/2024 FINDINGS: INTRACRANIAL: 4 mm rounded area of diffusion restriction seen anterior to the fourth ventricle in the posterior aspect of the brainstem/gallo. Additional 5 mm rounded area of diffusion restriction left periventricular white matter. Subtle 5 mm area of diffusion restriction also seen right centrum semio miguel white matter medial right frontal lobe. Moderate periventricular and deep white matter chronic microvascular ischemic changes. No hemorrhage, hydrocephalus or midline shift. VASCULATURE: Normal signal voids in the larger intracranial arteries and dural venous sinuses. SINUSES: The paranasal sinuses and mastoid air cells are predominantly clear. BONE: The marrow signal pattern is within normal limits. IMPRESSION: There are several distinct areas of diffusion restriction seen, both in the brainstem as well as the periventricular centrum semiovale white matter bilaterally. This would be compatible with areas of acute to subacute CVA. There is subtle areas of elevated susceptibility within these lesions and else where. Findings may be related to microinfarcts such as can be seen in amyloid angiopathy or embolic phenomenon.
--- NOTE | 2024-10-10 12:08 | EKG ---
Test Date: 2024-10-09 Test Time: 20:49:50 Filling Separator: GRISEL MEASUREMENT RESULTS: Intervals: Rate: 63 IA: 90 QRSD: 114 QT: 424 QTc: 433 Tillman: P: 54 IA: 90 QRS: 46 T: 84 INTERPRETIVE STATEMENTS: Sinus rhythm with short IA with premature atrial complexes Incomplete right bundle branch block Nonspecific ST and T wave abnormality Abnormal ECG Compared to ECG 03/29/2023 16:25:00 Atrial premature complex(es) now present Short IA interval now present ST (T wave) deviation now present Sinus bradycardia no longer present Electronically Signed On 10-10-24 12:06:30 CDT by Jose Elias Nogueira
[2024-10-10] MEDS: HEPARIN 5000 UNIT/ML 1 ML VIAL SQ SCH (14:56)
[2024-10-10] MEDS ORDERED: HEPARIN 5000 UNIT/ML 1 ML VIAL ONE (14:58)
--- NOTE | 2024-10-10 14:59 | P.PN ---
Subjective Date of Service: 10/11/24 Chief Complaint: Acute CVA; visual abnormalities and ataxia , Reports dizziness, blurry vision,Neurology following for acute CVA Plan for acute inpatient rehab after discharge Review of Systems 10-point ROS is otherwise unremarkable Physical Examination - Vital Signs Temperature: 98 F Blood Pressure: 159/64 Pulse: 59 Respirations: 17 Pulse Ox (%): 98 - Physical Exam General: Alert, In no apparent distress, Oriented x3 HEENT: Atraumatic, Normocephalic, Other (Limited peripheral vision) Neck: Supple, 2+ carotid pulse no bruit, JVD not distended Respiratory: Clear to auscultation bilaterally, Normal air movement Cardiovascular: No edema, Normal pulses, Normal S1 S2 Gastrointestinal: Normal bowel sounds, Non-distended Musculoskeletal: No contractures, No erythema, No tenderness, Other (Lower extremity weakness) Integumentary: No breakdown, No significant lesion Neurological: Normal speech, Normal tone, Abnormal gait, Abnormal strength, Abnormal cranial nerve function - Studies Laboratory Data (last 24 hrs) 10/09/24 10/09/24 10/09/24 20:22 20:22 20:22 WBC 9.80 Hgb 12.8 Hct 38.1 Plt Count 154 PT 11.5 INR 1.01 APTT 28.6 Sodium 137 Potassium 3.8 BUN 25 H Creatinine 1.71 H Glucose 199 H Magnesium 1.7 Total Bilirubin 0.6 AST 21 ALT 19 Alkaline Phosphatase 65 Assessment And Plan - Plan Assessment & Plan - Problems (Diagnosis) (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 Current Visit: Yes Status: Acute (2) CHF (congestive heart failure) Onset Date: 02/10/18 Current Visit: No Status: Chronic Qualifiers: Heart failure type: unspecified Heart failure chronicity: chronic Qualified Code(s): I50.9 - Heart failure, unspecified (3) CKD (chronic kidney disease) Current Visit: No Status: Chronic Qualifiers: Chronic kidney disease stage: stage 3 (moderate) (4) Diabetes Current Visit: No Status: Chronic Qualifiers: Diabetes mellitus type: type 2 Diabetes mellitus termite treater insulin use: without termite treater use Diabetes mellitus complication status: without complication Qualified Code(s): E11.9 - Type 2 diabetes mellitus without complications (5) HTN (hypertension) Current Visit: No Status: Chronic Qualifiers: Hypertension type: essential hypertension Qualified Code(s): I10 - Essential (primary) hypertension (6) Hyperlipidemia Current Visit: No Status: Chronic Qualifiers: Hyperlipidemia type: mixed hyperlipidemia Qualified Code(s): E78.2 - Mixed hyperlipidemia (7) Hypothyroidism Current Visit: No Status: Chronic Qualifiers: Hypothyroidism type: acquired Qualified Code(s): E03.9 - Hypothyroidism, unspecified - Plan 1. MRI of the brain several distinct areas of diffusion restriction seen, both in the brainstem as well as the periventricular centrum semiovale white matter bilaterally. This would be compatible with areas of acute to subacute CVA. There is subtle areas of elevated susceptibility within these lesions and elsewhere. Findings may be related to microinfarcts such as can be seen in amyloid angiopathy or embolic phenomenon 2. Antiplatelet and statin therapy; patient on full dose aspirin at home and will add Plavix to the regimen 3. Lipid profile HDL 62 otherwise unremarkable 4. PT, OT, ST, plan for acute inpatient rehab 5. DVT prophylaxis 6. Neurochecks every 4 hours 7. Reassess stroke scale each shift 8. Resume antihypertensives and decrease MAP by 25% from 147 to110. 9. Will discuss the case with neurology in the morning and will probably need inpatient rehab depending on how physical therapy goes. 10. GI and DVT prophylaxis Discharge Plan: Home Plan to discharge in: Greater than 2 days - Advance Directives Does patient have a Living Will: No Does patient have a Durable POA for Healthcare: No - Code Status/Comfort Care Code Status Assessed: Yes Code Status: Full Code Critical Care: No Time Spent Managing PTS Care (In Minutes): 45
--- NOTE | 2024-10-10 16:29 | P.PN ---
This is an attestation to SOLUTION DESIGNER note. Subjective: No chest pain or shortness of breath. No nausea or vomiting. No abdominal pain. No obvious bleeding. Looks comfortable in the bed. Comp laining of vision problem and vertigo-like feeling. Has chronic tingling and numbness of both lower extremities but now feeling tingling and numbness in both upper extremities as well. Complaining of generalized weakness. 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 74-year-old patient presented with strokelike symptoms, MRI positive for acute CVA, CT head negative, CTA head and neck negative, chest x-ray questionable volume overload, follow-up stroke pathway, follow-up on echo, neurology consult pending. Permissive hypertension for now, hold blood pressure medications. CKD 3B, monitor closely for now. Plan discussed with patient and family at bedside.
[2024-10-10] MEDS ORDERED: TRIAMCINOLONE ACETONIDE NAS PRN (18:02)
[2024-10-10] MEDS ORDERED: MELATONIN 5 MG TABLET PO PRN (18:02)
[2024-10-10] MEDS ORDERED: methocarbamoL 500 MG TAB PO PRN (18:02)
[2024-10-10] MEDS ORDERED: CETIRIZINE HCL 5 MG TABLET PO PRN (18:02)
[2024-10-10] MEDS: DOXAZOSIN 2 MG TAB PO SCH (20:41)
[2024-10-10] MEDS: FENOFIBRATE 48 MG TAB PO SCH (20:41)
[2024-10-10] MEDS: SERTRALINE HCL 50 MG TAB PO SCH (20:42)
[2024-10-10] MEDS: ASPIRIN EC 325 MG TABLET PO SCH (20:42)
[2024-10-10] MEDS: GABAPENTIN 300 MG CAP PO SCH (20:42)
[2024-10-10] MEDS: ATORVASTATIN 80 MG TAB PO SCH (20:42)
[2024-10-10] MEDS: ATORVASTATIN 10 MG TAB PO SCH (20:42)
[2024-10-10] MEDS: INSULIN 70/30 100 UNITS/ML SQ SCH (20:43)
[2024-10-10] MEDS: RAMIPRIL 1.25 MG PO SCH (21:00)
[2024-10-10] MEDS ORDERED: HOME MED 1 EA UNK (Aspirin [Aspirin Ec 325 Mg] 325 MG Tablet.Dr) PO SCH (21:00)
[2024-10-10] MEDS ORDERED: PRAVASTATIN SODIUM 80 MG PO SCH (21:00)
[2024-10-10] MEDS ORDERED: FENOFIBRATE 40 MG PO SCH (21:00)
[2024-10-10] MEDS ORDERED: INSULIN GLARGINE 100 UNIT/ML SQ SCH (21:00)
[2024-10-10] MEDS ORDERED: HOME MED 1 EA UNK (Insulin Nph Hum/Reg Insulin Hm [Humulin 70/30 Kwikpen] 100 UNIT/ML Insu SQ SCH (21:00)
--- NOTE | 2024-10-10 23:37 | CON ---
Reason For Consultation: Consultation was called because of stroke. History Of Present Illness: Ms. Jones is a 74-year-old patient with diabetes mellitus, hypertension, dyslipidemia, hypothyroidism, peripheral neuropathy who had had off and on symptoms of vertigo and d ouble vision perhaps for several days. However, symptoms seemed to worsen over the weekend where she had difficulty focusing and things seem to jump about in her vision. She had nausea and was unable to stand and ambulate due to significant instability and high risk of falling. She did not initially contact anyone of her family members until symptoms got lot worse the following day. She came to [facility] on 10/09/2024 and at that point, her NIH Stroke Scale was 6. CT scan of the head a nd CT angiogram of the head and neck were negative for any acute ischemic hemorrhagic events. Howevsatya r, her symptoms were very consistent with stroke including potential posterior circulation involvemen t with nausea, vomiting, double vision, and she had inability to have the left eye cross the midline to the right and again double vision with nystagmus. Blood pressures at that time were 220/100. She was reportedly taking aspirin daily, but not on Plavix and said her blood sugars were in the 150s an d is unsure of her cholesterol. At [facility], she was given aspirin, Plavix, folic acid an d permissive hypertension to bring the blood pressure to less than actually around 180s over 170s. S he was admitted to the hospital. She did subsequently have a brain MRI done earlier today and that abdirizak rios identified strokes that are acute and subacute. The scan showed a 4 mm rounded area of diffusio n restriction anterior to the fourth ventricle in the posterior aspect of the brainstem gallo region. An additional 5 mm rounded area of diffusion restriction was in the left periventricular white matte r. She had a subtle area of 5 mm diffusion restriction in the right centrum semiovale white matter a nd the medial right frontal lobe. In addition, she had moderate periventricular and deep chronic whi te matter ischemic changes from microvascular ischemic disease. It is notable that because of the di stribution of the strokes, she may have embolic phenomena and that potentially could be cardioembolic . She is awaiting an echocardiogram. Her electrocardiogram that was done on 10/09 showed a sinus rh ythm with sharp TX interval and premature atrial complexes and complete right bundle branch block. T here was nonspecific ST and T-wave abnormalities. Her blood work revealed essentially unremarkable c omplete blood count with differential. Coagulation panel is unremarkable. INR 1.01 and her electrol ytes are remarkable for dehydration with creatinine 1.71, BUN of 25, and glucose of 199. Liver funct ion studies were unremarkable. Her total cholesterol of 169, LDL cholesterol 82, HDL cholesterol 62, cholesterol to HDL ratio 2.73. Magnesium chloride normal. Sodium, potassium all normal. Her urina lysis that she indicated greater than 50 bacteria, 1+ total protein, trace glucose, extreme turbidity and cultures are pending. Past Medical History: As noted in addition to depression, anxiety. She also has diverticulosis, tac hycardia, history of viral meningitis, pneumonia. Past Surgical History: Cholecystectomy, hysterectomy, bilateral cataract surgery. Family History: Hypertension and asbestosis in father and hypertension and diabetes in mother. Social History: Smoked in the past. No current IV drugs, marijuana, or tobacco. Allergies: NO KNOWN DRUG ALLERGIES. Current Medications: Tylenol 500 mg every 4 hours as needed, aspirin 325 mg daily, Lipitor 80 mg at bedtime, Plavix 75 mg daily, Cardura 2 mg twice daily, fenofibrate 40 mg at bedtime, gabapentin 300 m g at bedtime. She has heparin 5000 units every 8 hours, Apresoline 10 mg IV every 4 hours. She has an insulin sliding scale in addition to Novolin 70/30 25 units at bedtime and 60 units at breakfast. Synthroid 0.088 mg daily, melatonin 5 mg at bedtime, Robaxin 500 mg 3 times daily, Toprol 25 mg cristobal y, Zofran 4 mg every 6 hours as needed, Zoloft 50 mg at bedtime, and she is receiving normal saline 7 5 cc an hour. Review of Systems: She has had double vision. The nausea, vomiting, and impairment of balance that has been off and on longer than 1 week and her family off and on for perhaps several months. Other than that and review of systems again some mild nausea, vomiting, some headache in the posterior head region and the diffi culty with vision, where she has blurred vision with shakiness of vision. Physical Examination: Vital Signs: Blood pressure 160/70, pulse 63, respiratory rate of 14 to 20, temperature 97.9, oxygen saturation 93%. Weight 200 pounds, height 5 feet 4 inches, BMI 34.3. General: Ms. Jones is lying in bed. Family is at bedside. HEENT: She does appear normocephalic, atraumatic. Sclerae anicteric. Oropharynx pink and moist. Neck: Supple. Chest: Clear. Heart: Regular. Extremities: No clubbing, cyanosis, or edema noted. Neurologic: She has significant difficulty identifying objects. She can count fingers, but she has diplopia when looking to either side and things seem to be jumping around slightly within her vision. She did have slight asymmetries of the facial sensation to light touch in the left more than right. She has some incoordination with dysmetria noted in the upper extremities and lower extremities. S he does have some mild weakness noted bilaterally in the upper and lower extremities and she is highl y unsteady in gait and unable to ambulate in any way without total help. Assessment: Ms. Jones is a 74-year-old patient with multiple likely cardioembolic strokes in differe nt vascular territories. She will benefit from an echocardiogram. At this point, she may be on aspi rin 81 mg daily, Plavix 75 mg daily, folic acid 1 mg daily, and continue with high-dose statin. Her blood pressures over the next 3-5 days may be permissively elevated perhaps 160 or 170 to be okay and in the next week to 2 weeks slowly bring blood pressure down towards the 140s and 130s, that is syst olic. Should continue with aggressive management of blood sugars. Continue with Synthroid for hypot hyroidism and the Zyrtec for allergies. She is on Cardura for heart rate control, melatonin for inso mnia, Zofran for nausea, and Zoloft at night for depression. She will benefit greatly from inpatient aggressive physical therapy along with speech and occupationa l therapy. The request has been put in for the patient to come to inpatient rehabilitation where she will be best suited to recover. If she is to be discharged home or to a lower level facility in [facility] of therapy, she would likely not do very well and it will be very important for her to have aggressive therapy right around the time of her st roke, which is current. ALMA/YUKI Voice ID: [id number] Report ID: [id number]
[2024-10-11 04:54] LABS: Absolute Eosinophils 0.2 K/uL (0-0.5); Absolute Lymphocytes (CBC) 2.4 K/uL (0.7-4.9); Absolute Monocytes 0.5 K/uL (0.1-1.3); Absolute Neutrophil 5.6 K/uL (1.8-8.0); Basophils % 0.5 % (0-1.3); Eosinophils % 2.4 % (0-4.4); Hematocrit 33.2 % (36.0-45.0); Hemoglobin 11.3 g/dL (12.0-15.0); Lymphocytes % 27.3 % (15.3-44.8); MCH 28.9 pg (27.0-35.0); MCHC 34.2 g/dL (32.0-36.0); MCV 84.5 fL (80-100); MPV 9.1 fL (7.6-11.3); Monocytes % 6.3 % (3.3-12.3); Neutrophils % 63.5 % (41.7-73.7); Nucleated Red Blood Cells % 0.1 % (0-0); Platelets 179 thou/uL (152-406); RBC Red Blood Cell Count 3.93 M/uL (3.86-4.86); Red Cell Distribution Width 14.2 % (12.1-15.2)
[2024-10-11 05:10] LABS: Anion Gap 6.6 mEq/L (5.0-15.0); Potassium 3.6 mEq/L (3.5-5.1); Troponin High Sensitivity 21.1 pg/mL (<58.9)
[2024-10-11] MEDS: INSULIN 70/30 100 UNITS/ML SQ SCH (08:00)
[2024-10-11] MEDS ORDERED: HOME MED 1 EA UNK (Insulin Nph Hum/Reg Insulin Hm [Humulin 70/30 Kwikpen] 100 UNIT/ML Insu SQ SCH (08:00)
[2024-10-11] MEDS: METOPROLOL XL 25 MG TAB PO SCH (09:00)
[2024-10-11] MEDS: POTASSIUM CL SA 10 MEQ TAB PO ONE (10:05)
--- NOTE | 2024-10-11 13:41 | P.PN ---
This is an attestation to PRODUCT MARKETING DIRECTOR note. Subjective: No chest pain or shortness of breath. No nausea or vomiting. No abdominal pain. No obvious bleeding. Looks comfortable in the bed. vision problem and vertigo-like feeling better today. tingling/numbness/weakness better today. 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 74-year-old patient with acute CVA,, MRI positive for acute CVA, CT head negative, CTA head and neck negative, chest x-ray questionable volume overload, follow-up stroke pathway, follow-up on echo, neurology consult apprecaited. Permissive hypertension with slowly resuming BP meds from today. CKD 3B, monitor closely for now. Plan discussed with patient and family at bedside.
[2024-10-11] MEDS: HYDRALAZINE HCL 20 MG/ML VIAL IV PRN (16:36)
--- NOTE | 2024-10-11 19:29 | P.PN ---
Date of Service: 10/11/24 Subjective Chief Complaint: Acute CVA; visual abnormalities and ataxia More alert today, seen while eating breakfast, tolerated breakfast no coughing Review of Systems 10-point ROS is otherwise unremarkable Physical Examination - Vital Signs Reviewed - Physical Exam General: Alert, Oriented x3, afebrile HEENT: Atraumatic, Normocephalic, Other (Limited peripheral vision) Neck: Supple, Respiratory: Equal, unlabored respiration Cardiovascular: No edema, Normal pulses, Normal S1 S2 Gastrointestinal: Normal bowel sounds, soft nontender Musculoskeletal: No contractures, No erythema, No tenderness, Other (Lower extremity weakness) Integumentary: No breakdown, No significant lesion Neurological: Normal speech, Normal tone, Abnormal gait, Abnormal strength, Abnormal cranial nerve function Assessment & Plan - Problems (Diagnosis) (1) Acute right 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 stroke Current Visit: Yes Status: Acute (2) CHF (congestive heart failure) Onset Date: 02/10/18 Current Visit: No Status: Chronic Qualifiers: Heart failure type: unspecified Heart failure chronicity: chronic Qualified Code(s): I50.9 - Heart failure, unspecified (3) CKD (chronic kidney disease) Current Visit: No Status: Chronic Qualifiers: Chronic kidney disease stage: stage 3 (moderate) (4) Diabetes Current Visit: No Status: Chronic Qualifiers: Diabetes mellitus type: type 2 Diabetes mellitus [facility] insulin use: without [facility] use Diabetes mellitus complication status: without complication Qualified Code(s): E11.9 - Type 2 diabetes mellitus without complications (5) HTN (hypertension) Current Visit: No Status: Chronic Qualifiers: Hypertension type: essential hypertension Qualified Code(s): I10 - Essenti al (primary) hypertension (6) Hyperlipidemia Current Visit: No Status: Chronic Qualifiers: Hyperlipidemia type: mixed hyperlipidemia Qualified Code(s): E78.2 - Mixed hyperlipidemia (7) Hypothyroidism Current Visit: No Status: Chronic Qualifiers: Hypothyroidism type: acquired Qualified Code(s): E03.9 - Hypothyroidism, unspecified - Plan 1. MRI of the brain several distinct areas of diffusion restriction seen, both in the brainstem as well as the periventricular centrum semiovale white matter bilaterally. This would be compatible with areas of acute to subacute CVA. There is subtle areas of elevated susceptibility within these lesions and elsewhere. Findings may be related to microinfarcts such as can be seen in amyloid angiopathy or embolic phenomenon 2. Antiplatelet and statin therapy; patient on full dose aspirin at home and will add Plavix to the regimen 3. Lipid profile HDL 62 otherwise unremarkable 4. PT, OT, ST, plan for acute inpatient rehab 5. DVT prophylaxis 6. Neurochecks every 4 hours 7. Reassess stroke scale each shift 8. Resume antihypertensives and decrease MAP by 25% 9. Will discuss the case with neurology in the morning and will probably need inpatient rehab depending on how physical therapy goes. 10. GI and DVT prophylaxis 11. SSI, blood glucose monitoring, Discharge Plan: Home Plan to discharge in: Greater than 2 days - Advance Directives Does patient have a Living Will: No Does patient have a Durable POA for Healthcare: No - Code Status/Comfort Care Code Status Assessed: Yes Code Status: Full Code Critical Care: No Time Spent Managing PTS Care (In Minutes): 35
[2024-10-12 01:17] VITALS: BMI 34.7
[2024-10-12 07:59] LABS: Absolute Eosinophils 0.2 K/uL (0-0.5); Absolute Lymphocytes (CBC) 1.9 K/uL (0.7-4.9); Absolute Monocytes 0.6 K/uL (0.1-1.3); Absolute Neutrophil 4.7 K/uL (1.8-8.0); Basophils % 0.6 % (0-1.3); Eosinophils % 2.7 % (0-4.4); Hematocrit 32.4 % (36.0-45.0); Hemoglobin 10.9 g/dL (12.0-15.0); Lymphocytes % 25.7 % (15.3-44.8); MCH 28.7 pg (27.0-35.0); MCHC 33.7 g/dL (32.0-36.0); MCV 85.1 fL (80-100); MPV 9.4 fL (7.6-11.3); Platelets 146 thou/uL (152-406); RBC Red Blood Cell Count 3.81 M/uL (3.86-4.86); Red Cell Distribution Width 14.3 % (12.1-15.2)
[2024-10-12] MEDS ORDERED: GLUCAGON 1 MG/VIAL IM PRN (09:22)
[2024-10-12] MEDS ORDERED: D10W 125 ML IV PRN (09:22)
[2024-10-12] MEDS: INSULIN REGULAR (HUMAN) 100 UNIT/ML SQ SCH (11:30)
--- NOTE | 2024-10-12 13:46 | P.PN ---
This is an attestation to URBAN REDEVELOPMENT SPECIALIST note. Subjective: No chest pain or shortness of breath. No nausea or vomiting. No abdominal pain. No obvious bleeding. Looks comfortable in the bed. vision problem and vertigo-like feeling better today but ongoing. tingling/numbness/weakness better today but still some weakness on right arm/leg. Objective: General appearance: Alert and comfortable CVS: Normal S1 and S2 Lungs: Clear to auscultation bilaterally Abdomen: Soft, bowel sounds present, no tenderness Extremities: No lower extremity edema CLINICAL FACULTY: Moves all 4 extremities, right side 4-5/5, left 5/5, no facial weakness. 74-year-old patient with acute CVA,, MRI positive for acute CVA, CT head negative, CTA head and neck negative, chest x-ray questionable volume overload, echo normal EF, neurology consult apprecaited. hypertension, restrated BB, resume ACEI tody. CKD 3B, monitor closely for now. Plan discussed with patient and staff. DC to rehab.
--- NOTE | 2024-10-12 13:48 | P.DS ---
Admission Date: 10/09/24 Discharge Date: 10/12/24 Reason for Admission: Acute CVA; visual abnormalities and ataxia Brief History of Present Illness: 74-year-old female who noticed last night that she was having issues with her vision. She was having a hard time focusing and she got really nauseated. She wanted to get up and ambulate but she was really unsteady so she decided to sit back down. She notified her family this morning and she finally came into the ER this evening. In the ER patient's workup and clinical exam appears to have acute posterior circulation CVA. Patient NIH score was 6. Patient had ataxia in both limbs she had the left leg and the left arm motor drift and she seemed like she had her nasolabial fold on the left side are little flat and she has partial hemianopia on the right visual field. At this time patient will be admitted to the hospital for further workup. CT angio was negative and CT of the head was negative. MRI of the brain is pending. ER physician spoke to neurology and they agreed with admission to the hospital here. Will continue with antiplatelet therapy and statin therapy. Patient blood pressure is 220/100. Patient's mean arterial pressure was 147 and will try to decrease it down to about 110 tonight. Admitted for acute CVA, with neurology to consult - Physical Exam General: Alert, In no apparent distress, Oriented x3 HEENT: Atraumatic, PERRLA, Mucous membr. moist/pink, EOMI, Sclerae nonicteric Neck: Supple, 2+ carotid pulse no bruit, No LAD, Without JVD or thyroid abnormality Respiratory: Clear to auscultation bilaterally, Normal air movement Cardiovascular: Regular rate/rhythm, Normal S1 S2 Gastrointestinal: Normal bowel sounds, Soft and benign, Non-distended, No tenderness Musculoskeletal: No clubbing, No swelling, No tenderness Integumentary: No rashes Neurological: Normal speech, Normal tone, Sensation intact, Normal affect, Abnormal gait, Abnormal strength, Abnormal cranial nerve function Hospital Course: 74-year-old female who noticed last night that she was having issues with her vision. She was having a hard time focusing and she got really nauseated. She wanted to get up and ambulate but she was really unsteady so she decided to sit back down. She notified her family this morning and she finally came into the ER this evening. In the ER patient's workup and clinical exam appears to have acute posterior circulation CVA. Patient NIH score was 6. Patient had ataxia in both limbs she had the left leg and the left arm motor drift and she seemed like she had her nasolabial fold on the left side are little flat and she has partial hemianopia on the right visual field. At this time patient will be admitted to the hospital for further workup. CT angio was negative and CT of the head was negative. MRI of the brain is pending. ER physician spoke to neurology. He was admitted for acute CVA with neurology consulted she was seen by speech, PT and OT, plan to discharge to acute inpatient rehab Assessment CVA left hemiparesis treated with antiplatelet, Plavix and statin therapy Dizziness, visual disturbance Congestive heart failure, treated with gentle diuresis CKD, trend kidney Diabetes, sliding scale insulin, blood glucose much Hypertension permissive Hyperlipidemia resume statin, aspirin Hypothyroidism resume home meds MRI of the brain several distinct areas of diffusion restriction seen both in t he brainstem as well as the periventricular centrum synovial of the white matter bilaterally would be compared compatible with acute to subacute CVA subtle elevated susceptibility within these lesions and elsewhere may be related to micro infarcts, seen in amyloid angiopathy or emboli Atik phenomena Continue home medicines as previously prescribed GOAL: Clear understanding of disease process INSTRUCTIONS: Physician Discharge Instructions: Discharge to acute inpatient rehab -Please call if any questions regarding hospital stay -Please call nursing station at [phone] if any nursing or medication questions -Return to the emergency room if symptoms worsen Diet: ADA, low sodium Activity: Fall precautions Vital Signs/Physical Exam: Temp Pulse Resp BP Pulse Ox 97.7 F 64 22 H 189/85 H 93 10/12/24 08:00 10/12/24 08:00 10/12/24 08:00 10/12/24 08:00 10/12/24 08:00 Laboratory Data at Discharge: WBC 7.50 thou/uL (4.3-10.9) 10/12/24 07:15 Hgb 10.9 g/dL (12.0-15.0) L 10/12/24 07:15 Hct 32.4 % (36.0-45.0) L 10/12/24 07:15 Plt Count 146 thou/uL (152-406) L 10/12/24 07:15 PT 11.5 SECONDS (10-13.0) 10/09/24 20:22 INR 1.01 10/09/24 20:22 APTT 28.6 SECONDS (27.2-37.4) 10/09/24 20:22 Sodium 142 mEq/L (136-145) 10/12/24 07:15 Potassium 4.0 mEq/L (3.5-5.1) 10/12/24 07:15 BUN 32 mg/dL (7-18) H 10/12/24 07:15 Creatinine 1.64 mg/dL (0.55-1.02) H 10/12/24 07:15 Glucose 147 mg/dL (74-106) H 10/12/24 07:15 Magnesium 1.7 mg/dL (1.6-2.4) 10/10/24 04:37 Total Bilirubin 0.5 mg/dL (0.2-1.0) 10/10/24 04:37 AST 18 U/L (15-37) 10/10/24 04:37 ALT 19 U/L (13-56) 10/10/24 04:37 Alkaline Phosphatase 60 U/L (45-117) 10/10/24 04:37 Triglycerides 125 mg/dL (<150) 10/10/24 04:37 Cholesterol 169 mg/dL (<200) 10/10/24 04:37 HDL Cholesterol 62 mg/dL (40-60) H 10/10/24 04:37 Cholesterol/HDL Ratio 2.73 10/10/24 04:37 Home Medications: Aspirin [Aspirin EC 325 MG] 325 mg PO BEDTIME 10/20/18 Gabapentin [Neurontin*] 300 mg PO BEDTIME 10/20/18 Insulin NPH Hum/Reg Insulin Hm [Humulin 70/30 Kwikpen] 60 units SQ BREAKFAST 10/20/18 Pantoprazole [Protonix Tab*] 40 mg PO DAILY 10/20/18 Pravastatin Sodium [Pravachol] 80 mg PO BEDTIME 10/20/18 Sertraline [Zoloft*] 50 mg PO BEDTIME 10/20/18 Acetaminophen [Tylenol] 325 mg PO PRN PRN 10/10/24 Calcium 26/Magnesium 15/Zinc [Cryhwxa-Erwnefgej-Bspn Capsule] 1 tab PO PRN PRN 10/10/24 Cetirizine HCl [Zyrtec*] 5 mg PO PRN PRN 10/10/24 Doxazosin [Cardura*] 2 mg PO BID 10/10/24 Fenofibrate [Tricor*] 48 mg PO BEDTIME 10/10/24 Insulin NPH Hum/Reg Insulin Hm [Humulin 70/30 Kwikpen] 35 units SQ BEDTIME 10/10/24 Levothyroxine [Synthroid*] 0.125 mg PO DAILY 10/10/24 Melatonin 5 mg PO PRN PRN 10/10/24 Metoprolol Succinate [Toprol Xl*] 25 mg PO DAILY 10/10/24 Ramipril 1.25 mg PO BEDTIME 10/10/24 Triamcinolone Acetonide [Nasacort] 1 spray MARNIE PRN PRN 10/10/24 methocarbamoL [Methocarbamol] 500 mg PO TIDP PRN 10/10/24 Followup: Vincent Jones DO [Primary Care Provider] - Esau Mendes MD [ASSOCIATE-ACTIVE - CAN ADMIT] - Time spent managing pt's care (in minutes): 45
--- NOTE | 2024-10-12 17:22 | RAD REPORT ---
EXAMINATION: ONE VIEW CHEST XR CLINICAL INDICATION: chest tightness TECHNIQUE: Frontal chest projection is submitted. Examination is limited by patient positioning and t echnique. COMPARISON: 10/09/2024 FINDINGS: The lungs are well inflated and clear. The heart is upper limit of normal in size. No displaced fract ures identified. IMPRESSION: No acute intrathoracic abnormalities.
[2024-10-12 17:24] VITALS: TEMP 98.4
[2024-10-12] MEDS: ONDANSETRON 4 MG/2 ML VIAL IV PRN (17:36)
[2024-10-12 18:48] VITALS: BP 141/64
[2024-10-12 19:53] VITALS: O2SAT 95
--- NOTE | 2024-10-13 11:04 | ECHO ---
HEIGHT: 5 ft 4 in WEIGHT: 202 lb 0 oz DATE OF STUDY: 10/12/[address]: Shahana Chester MD 2-DIMENSIONAL: YES M.MODE: YES DOPPLER: YES COLOR FLOW: YES TDS: PORTABLE: YES DEFINITY: BUBBLE STUDY: DIAGNOSIS: STROKE CARDIAC HISTORY: CATHERIZATION: NO SURGERY: NO PROSTHETIC VALVE: NO PACEMAKER: NO MEASUREMENTS (cm) DIASTOLIC (NORMALS) SYSTOLIC (NORMALS) IVSd 1.2 (0.6-1.2) LA Diam 4.55 (1.9-4.0) LVEF 60-65% LVIDd 4.4 (3.5-5.7) LVIDs 2.5 (2.0-3.5) %FS 44% LVPWd 1.1 (0.6-1.2) Ao Diam 2.9 (2.0-3.7) 2 DIMENSIONAL ASSESSMENT: RIGHT ATRIUM: NORMAL LEFT ATRIUM: MILDLY DILATED RIGHT VENTRICLE: NORMAL LEFT VENTRICLE: MILD LEFT VENTRICULAR HYPERTROPHY TRICUSPID VALVE: TRACE TRICUSPID REGURGITATION MITRAL VALVE: TRACE MITRAL REGURGITATION PULMONIC VALVE: NORMAL AORTIC VALVE: NORMAL PERICARDIAL EFFUSION: NONE AORTIC ROOT: NORMAL LEFT VENTRICULAR WALL MOTION: NORMAL DOPPLER/COLOR FLOW: NORMAL COMMENTS: 1. NORMAL LEFT VENTRICULAR SYSTOLIC FUNCTION, EJECTION FRACTION 60-65%, NORMAL WALL MOTION 2. MILD LEFT VENTRICULAR HYPERTROPHY 3. NORMAL DIASTOLIC FUNCTION TECHNOLOGIST: LORRI SPANN
--- NOTE | 2024-10-13 11:54 | EKG ---
Test Date: 2024-10-12 Test Time: 16:23:11 Presser Cotton Ginning: ABRAHAM Salguero MEASUREMENT RESULTS: Intervals: Rate: 67 VT: 92 QRSD: 120 QT: 426 QTc: 450 [place]: P: 23 VT: 92 QRS: 54 T: -12 INTERPRETIVE STATEMENTS: Sinus rhythm with short VT Right bundle branch block Abnormal ECG Compared to ECG 10/09/2024 20:49:50 Right bundle-branch block now present Atrial premature complex(es) no longer present Incomplete right bundle-branch block no longer present ST (T wave) deviation no longer present Electronically Signed On 10-13-24 11:52:31 CDT by Jose Elias Nogueira
== END 2024-10-12 20:30 | DRG 65 ==
LOC: ER 18:51 → ERHOLD 22:04 → 2ND 10-10 14:43
PROVIDERS: ADMIT Hospitalist; ATTEND Hospitalist
DX: I63.9 Cerebral infarction, unspecified (principal); G81.94 Hemiplegia, unspecified affecting left nondominant side; I13.0 Hypertensive heart and chronic kidney disease with heart failure and stage 1 through stage 4 chronic kidney disease, or unspecified chronic kidney disease; I50.9 Heart failure, unspecified; N18.32 Chronic kidney disease, stage 3b; E11.22 Type 2 diabetes mellitus with diabetic chronic kidney disease; E11.42 Type 2 diabetes mellitus with diabetic polyneuropathy; E03.9 Hypothyroidism, unspecified; E78.2 Mixed hyperlipidemia; R29.704 NIHSS score 4; Z79.4 Long term (current) use of insulin; Z79.82 Long term (current) use of aspirin; Z90.49 Acquired absence of other specified parts of digestive tract; Z91.011 Allergy to milk products; Z90.710 Acquired absence of both cervix and uterus; Z79.890 Hormone replacement therapy; Z79.899 Other long term (current) drug therapy; Z87.891 Personal history of nicotine dependence
CPT/HCPCS: 36415; 70450; 70496; 70498; 70551; 71045; 80048; 80053; 80061; 80076; 81001; 82947; 83036; 83735; 84484; 85025; 85610; 85730; 86140; 92610; 93005; 93306; 96374; 97161; 97165; 97530; 97542; 99285; J0360; J1644; J1815; J2405; J7030; J8597; Q9967

== ENCOUNTER 2024-10-12 16:07 | Inpatient (IN) | payer OTHER ==
--- OUTSIDE RECORDS SUMMARY | 2024-10-12 20:55 | XMS REPORT | Continuity of Care Document ---
Author Name Unknown Address [address] [place] [address] [facility] Address [address] [place] [address] Care Team Providers Care Injury Prevention Coordinator Name Role Phone Rhys Taylor Jr. Primary Care Physician [phone] Ashley CHENG Attending Clinician Unavailable MARCIN MORTON Attending Clinician Unavailable Marcin Eden Attending Clinician [phone] Unknown, Attending Attending Clinician Unavailab le Doctor Unassigned, [place] Attending Clinician U navailable Only, Ang Db Test Attending Clinician UnavailBonnie Beltran Attending Clinician [phone] BONNIE PERSAUD Attending Clinician Unavailable Payers Payer Name Policy Type Policy Number Effective Date Expirati on Date Source MEDICARE PART A \T\ B [id number] 2016 00:00:00 CONTINENTAL BENEFITS [id number] 2016 00:00:00 Problems Condition Name Condition Details Condition Category Status Onset Date Resolution Date Last Treatment Date Treating Clinician Comments Source Acquired hammer toe of right foot Hammer toe of right foot Problem [facility] No known active problems No known active problems Disease [facility] Allergies, Adverse Reactions, Alerts Allergy Name Allergy Type Status Severity Reaction(s) Onset Date Inactive Date Treating Clinician Comments Source NO KNOWN ALLERGIE S Drug Class Active [facility] Social History Social Habit Start Date Stop Date Quantity Comments Source History of Tobacco Use [facility] Sex [facility] Exposure to SARS-CoV-2 (event) 2022-05-27 00:00:00 2022-06-06 11:50:00 Not sure [facility] History of Social function 2018-01-15 00:00:00 2018-01-15 00:00:00 [facility] Tobacco use and exposure 2018-01-15 00:00:00 2018-01-15 00:00:00 Smokeless tobacco non-user [facility] Alcohol intake 2018-01-15 00:00:00 2018-01-15 00:00:00 Current non-drinker of alcohol (finding) [facility] Smoking Status Start Date Stop Date Source Never Smoker [facility] Medications Ordered Medication Name Filled Medication Name Start Date Stop Date Current Medication? Ordering Clinician Indication Dosage Frequency Signature (SIG) Comments Components Source Cefadroxil 500 MG Cefadroxil 500 MG 02-03 00:00: 00 No BID Cefadroxil 500 MG mometasone furoate (NASONEX NASAL) 2021-06 12:10: 51 Yes Use in each nostril. [facility] lisinopril 40 mg tablet 2021-06 12:10: 51 Yes 40mg Take 40 mg by mouth daily. [facility] Levothyroxi ne 100 mcg capsule 2021-06 12:10: 51 Yes Take by mouth. [facility] pantoprazol e sodium (PANTOPRAZO LE ORAL) 2021-06 12:10: 51 Yes Take by mouth. [facility] aspirin 325 mg tablet 2021-06 12:10: 51 Yes 325mg Take 325 mg by mouth daily. [facility] benzonatate 200 mg capsule 2021-06 00:00: 00 06-17 05:59 :00 No [id number] 200mg Take 1 capsule by mouth 3 (three) times daily as needed for Cough for up to 10 days. [facility] lisinopril 40 mg tablet 01-15 20:51: 40 Yes 40mg Take 40 mg by mouth daily. [facility] Levothyroxi ne 100 mcg capsule 01-15 20:51: 40 Yes Take by mouth. [facility] pantoprazol e sodium (PANTOPRAZO LE ORAL) 01-15 20:51: 40 Yes Take by mouth. [facility] aspirin 325 mg tablet 01-15 20:51: 40 Yes 325mg Take 325 mg by mouth daily. [facility] mometasone furoate (NASONEX NASAL) 01-15 20:51: 40 Yes Use in each nostril. [facility] codeine-gua ifenesin 10-100 mg/5 mL solution 01-15 00:00: 00 Yes [id number] 5mL Take 5 mL by mouth every 6 (six) hours as needed for Cough. [facility] albuterol 90 mcg/actuati on inhaler 01-15 00:00: 00 Yes [id number] 2{puff} Inhale 2 Puffs every 6 (six) hours as needed for Wheezing or Shortness of Breath. [facility] HUMULIN 70/30 U-100 INSULIN 100 unit/mL (70-30) suspension 12-10 00:00: 00 Yes [facility] metoprolol succinate XL 100 mg 24 hr tablet 11-04 00:00: 00 Yes [facility] amLODIPine 10 mg tablet 11-03 00:00: 00 Yes [facility] Fenofibrate 48 MG Fenofibrate 48 MG No [...] MODERNA 12+ YRS VACCINE 2020-08-08 00:00:00 Completed [facility] SARS-COV-2 COVID-19 MODERNA VACCINE 2020-08-08 00:00:00 Completed [facility] SARS-COV-2 COVID-19 MODERNA 12+ YRS VACCINE 2020-08-08 00:00:00 Completed [facility] SARS-COV-2 COVID-19 MODERNA VACCINE 2020-07-11 00:00:00 Completed [facility] SARS-COV-2 COVID-19 MODERNA 12+ YRS VACCINE 2020-07-11 00:00:00 Completed [facility] SARS-COV-2 COVID-19 MODERNA 12+ YRS VACCINE 2020-07-11 00:00:00 Completed [facility] SARS-COV-2 COVID-19 MODERNA 12+ YRS VACCINE Unknown Completed [facility] SARS-COV-2 COVID-19 MODERNA 12+ YRS VACCINE Unknown Completed [facility] Vital Signs Vital Name Observation Time Observation Value Comments S ource Systolic blood pressure 2022-06-06 18:09:00 109 mm[Hg] [facility] Diastolic blood pressure 2022-06-06 18:09:00 64 mm[Hg] [facility] Heart rate 2022-06-06 18:09:00 72 /min [facility] Body temperature 2022-06-06 18:09:00 36.72 Lilly [facility] Respiratory rate 2022-06-06 18:09:00 16 /min [facility] Body height 2022-06-06 18:09:00 162.6 cm [facility] Body weight 2022-06-06 18:09:00 98.431 kg [facility] BMI 2022-06-06 18:09:00 37.25 kg/m2 [facility] Oxygen saturation in Arterial blood by Pulse oximetry 2022-06-06 18:09:00 97 /min [facility] Procedures Procedure Date / Time Performed Performing Clinicia n Source POCT SARS-COV-2 ANTIGEN (BINAX NOW) 2022-06-06 18:29:00 Griffin Christy [facility] POCT MOLECULAR FLU 2022-06-06 18:21:00 Unknown, Attend [facility] ASSIGNMENT OF BENEFITS 2022-06-06 17:51:25 Docto r Unassigned, [place] [facility] Encounters Start Date/Time End Date/Time Encounter Type Admission Type Attending Clinicians Care Facility Care Department Encounter ID Source 2024-02-04 14:23:01 Outpatient Vincent Jones [facility] [id number] [facility] 2023-06-18 14:24:02 Outpatient Ashley CHENG [facility] [id number] [facility] 2024-05-19 00:00:00 2024-05-19 00:00:00 (F/U) Follow Up Visit [facility] [id number] [facility] 2024-02-19 00:00:00 2024-02-19 00:00:00 Postop visit [facility] [id number] [facility] 2024-02-11 00:00:00 2024-02-11 00:00:00 (PodSurger y) Podiatry Surgery [facility] [id number] [facility] 2024-02-04 00:00:00 2024-02-04 00:00:00 Office Visit- New Pt.- Level 3 [facility] [id number] [facility] 2022-06-06 12:00:00 2022-06-06 12:50:34 Outpatient R MARCIN MORTON [facility] [id number] [facility] 2022-06-06 12:00:00 2022-06-06 12:50:34 Urgent Care Marcin Morton Unknown, [facility] [id number] [facility] 2022-06-06 00:00:00 2022-06-06 00:00:00 Orders Only Doctor Unassigned, [place] [facility] [id number] [facility] 2021-06-14 17:45:00 2021-06-14 18:00:00 Laboratory Only Only, Ang Db Test Cori Bonnie [facility] [id number] [facility] 2021-06-14 17:45:00 2021-06-14 17:45:00 Outpatient R CORI BONNIE [facility] [id number] [facility] 2021-04-25 00:00:00 2021-04-25 00:00:00 Patient Secure Msg Doctor Unassigned, [place] [facility] [id number] [facility] 2021-04-25 00:00:00 2021-04-25 00:00:00 Patient Secure Msg Doctor Unassigned, [place] [facility] [id number] [facility] Results Test Description Test Time Test Comments Results Result Co mments Source [facility] NOW[facility]2022-06-06 18:29:00* Test Item Value Reference Range Interpretation Comme nts POCT SARS-COV-2 ANTIGEN (carmela t code = 25381-7) Not Detected Not Detected On board controls acceptable with C Line (test code = 3574) Yes [facility]
[2024-10-12 21:09] VITALS: BMI 34.7
[2024-10-12] MEDS ORDERED: CETIRIZINE HCL 5 MG TABLET PO PRN (22:47)
[2024-10-12] MEDS ORDERED: MELATONIN 5 MG TABLET PO PRN (22:47)
[2024-10-12] MEDS ORDERED: D50W 25 GM/50 ML SYRINGE IV PRN ×2 (22:47→23:00)
[2024-10-12] MEDS ORDERED: GLUCAGON 1 MG/VIAL IM PRN ×2 (22:47→23:00)
[2024-10-12] MEDS ORDERED: ACETAMINOPHEN 325 MG TABLET PO PRN (22:47)
[2024-10-12] MEDS ORDERED: methocarbamoL 500 MG TAB PO PRN (22:47)
[2024-10-13] MEDS ORDERED: D10W 125 ML IV PRN (00:07)
[2024-10-13 00:14] LABS: Specific Gravity 1.019 (1.005-1.030); Sqamous Epithelial <5 /HPF (None Seen); Urine Bacteria 20-50 /HPF (<20); Urine Bilirubin NEGATIVE (Negative); Urine Blood Negative (Negative); Urine Clarity Extremely Turbid (Clear); Urine Color Yellow (Yellow); Urine Culture Reflex Order NOT NEEDED; Urine Glucose NEGATIVE (Negative); Urine Ketones NEGATIVE (Negative); Urine Microscopic Reflex YN ORDER UMIC; Urine Nitrite NEGATIVE (Negative); Urine Protein 1+ (Negative); Urine RBC None Seen /HPF (None Seen); Urine Urobilinogen Normal (Normal); Urine WBC <5 /HPF (<5); Urine pH 5.5 (5.0-7.0)
[2024-10-13] MEDS: LEVOTHYROXINE SOD 0.088 MG TAB PO SCH (06:45)
[2024-10-13] MEDS: PANTOPRAZOLE 40MG TABLET PO SCH (06:45)
[2024-10-13] MEDS: INSULIN REGULAR (HUMAN) 100 UNIT/ML SQ SCH (06:47)
[2024-10-13] MEDS: CRANBERRY FRUIT EXTRACT 425 MG CAPSULE PO SCH (07:49)
[2024-10-13] MEDS: ASPIRIN EC 81 MG TAB PO SCH (07:49)
[2024-10-13] MEDS: METOPROLOL XL 25 MG TAB PO SCH (07:49)
[2024-10-13] MEDS: MAGNESIUM OXIDE 400 MG TAB PO SCH (07:49)
[2024-10-13] MEDS: APIXABAN 2.5 MG TABLET PO SCH (07:49)
[2024-10-13] MEDS: INSULIN 70/30 100 UNITS/ML SQ SCH (07:53)
[2024-10-13] MEDS: FLUTICASONE 50MCG NASAL SPRAY NAS SCH (08:49)
[2024-10-13] MEDS: CALCIUM 250 MG/VITAMIN D 125 IU TAB PO SCH (08:50)
[2024-10-13] MEDS: ACETAMINOPHEN 500 MG TAB PO PRN (10:42)
[2024-10-13] MEDS: DOXAZOSIN 2 MG TAB PO SCH (10:43)
[2024-10-13] MEDS: LIDOCAINE 4% PATCH TOP SCH (10:46)
[2024-10-13] MEDS: cloNIDine HCL 0.1 MG TAB PO PRN (20:13)
[2024-10-13] MEDS: GABAPENTIN 300 MG CAP PO SCH (20:14)
[2024-10-13] MEDS: FENOFIBRATE 48 MG TAB PO SCH (20:14)
[2024-10-13] MEDS: SERTRALINE HCL 50 MG TAB PO SCH (20:14)
[2024-10-13] MEDS ORDERED: INSULIN 70/30 100 UNITS/ML SQ SCH ×2 (21:00)
[2024-10-13] MEDS: MECLIZINE HCL 12.5 MG TAB PO PRN (21:01)
--- NOTE | 2024-10-13 23:55 | HP ---
Date of Admission: 10/12/2024 Time Of Service: 1:30 p.m. Chief Complaint: "I have a stroke affecting my vision." History Of Present Illness: Ms. Jones is a 74-year-old patient with hypertension, dyslipidemia, diab etes mellitus, hypothyroidism, history of viral meningitis, pneumonia, who came to the emergency room at [facility] with visual disturbances beginning the night prior to her being seen. Sympto ms manifested in addition to the visual disturbance with reported dizziness, unsteady gait, problems with sitting and going from a sitting to standing position, and ambulating without losing balance. E valuation included CT angiogram showing a right posterior cerebral artery occlusion and imaging of th e brain which included MRI, showed a right CAREER DEVELOPMENT SPECIALIST stroke. The stroke explained the patient's symptoms o f visual deficits involving the left visual field with the incoordination for balance and gait. She was evaluated by the Therapy Service including physical, occupational, and speech therapy and found t o require moderate assistance for mobilization, transfers, ambulation, and performing activities of d aily living. Furthermore, she had elevated blood pressures, hyperglycemia, and evidence of dehydrati on with elevated BUN and creatinine and mild anemia with decreased hemoglobin and hematocrit which re quired medical management. Prior to her stroke, Ms. Jones was independent in terms of her ability to mobilize independently without an assistive device to perform her activities of daily living. She d id use for longer distance a motorized scooter, but again ambulated short distances without limitatio ns and she did cooking, cleaning, and all of her turn laster independently. As a result of her acute stroke and difficulty mobilizing, impaired balance and gait, coordination, and visual deficits, she is found to be an appropriate candidate for aggressive inpatient rehabilitation, so she can retu rn towards her prior level of functioning and reduce the risk of rehospitalization. She is now only able to ambulate about 5 feet before losing balance and falling and again needs a lot of help with ac tivities of daily living. Past Medical History: As noted above, which includes diverticulitis, diabetes mellitus, hypertension , dyslipidemia, hypothyroidism, and remote history of viral meningitis and pneumonia. Past Surgical History: Cholecystectomy, hysterectomy, bilateral cataract surgery. Allergies: CELERY AND CHEESE. Medications: Tylenol 500 mg every 6 hours as needed, Eliquis 2.5 mg twice daily, aspirin 81 mg daily , Zyrtec 5 mg daily for allergies, she has Os-Leo plus D twice daily, Cardura 2 mg daily, fenofibrate 48 mg daily, gabapentin 300 mg daily, glucagon as needed for hypoglycemia, she has Flonase 500 mcg n vee spray twice daily, insulin 70/30 30 units at bedtime, she has mild insulin sliding scale, Synthr oid 0.088 mg daily, lidocaine patch 2 patches daily, magnesium oxide 400 mg twice daily, melatonin 5 mg at bedtime, methocarbamol 500 mg 3 times daily, Toprol 25 mg daily, Protonix 40 mg daily, Altace 2 .5 mg daily, Zoloft 50 mg at bedtime. Laboratory Studies: White blood cell count 7.5, hemoglobin 10.9, platelets 146. INR 1.01. Her gluc ose ranged from 88 to 152. Hemoglobin A1c 7.6. Sodium 142, potassium 4.0, chloride 110, carbon diox bora 28, BUN 32, creatinine 1.64. Her troponin 1 is 18. X-ray/imaging: Brain MRI done 10/10/2024 showed several distinct areas of diffusion restriction both in the brainstem as well as in the periventricular centrum semiovale white matter bilaterally. Coul d be compatible with areas of acute to subacute stroke. There are subtle areas of elevated susceptib ility within these lesions and elsewhere. Findings are related to micro infarcts such as can be seen with amyloid angiopathy or embolic phenomenon. Chest x-ray done yesterday showed no acute intrathor acic abnormalities. An electrocardiogram also done yesterday showed sinus rhythm with short [place] inter yinka, right bundle-branch block. Family History: Noncontributory. Social History: No alcohol, tobacco, or IV drug use. She lives in single family home with family me mbers including her . Physical Examination: Vital Signs: Blood pressure is 158/70, pulse 57, respiratory rate of 16, temperature 97.3, oxygen sa turation 95%. General: Ms. Jones is resting comfortably in bed. Family at the bedside. She has a cousin visiting . HEENT: She is normocephalic, atraumatic. Sclerae anicteric. Oropharynx pink and moist. Neck: Supple. Chest: Clear. Heart: Regular. Extremities: Show no significant clubbing, cyanosis, or edema. Neurological: She has a decreased left visual field in the lower quadrant with full eyes. Some diff iculty with internuclear ophthalmoplegia appearance, but the left eye does cross the midline fully. Otherwise, face appears symmetric. She has mild weakness on the left compared to right upper extremi ty, although very subtle left lower extremity similarly so. Sensation is stocking-glove loss to ligh t touch temperature. Current Level Of Functioning: Currently, her eating is at setup assistance, grooming setup assistanc e, bathing moderate assistance, upper body dressing supervision, lower body dressing moderate assista nce, toileting moderate assistance, wheelchair transfer moderate assistance, toilet transfers moderat e assistance level. Ambulation, she covered 5 feet, moderate assistance. Wheelchair, 150 feet with minimum assistance. Rehab And Medical Assessment And Plan: Ms. Bertha Jones is admitted to the inpatient rehabilitation [facility] with impairment category 01, stroke. Her impairment group code is 01.4, stroke with paresis, vis ual field deficits, and incoordination. Etiologic diagnosis is acute right CAREER DEVELOPMENT SPECIALIST stroke. Her comorbid conditions; diabetes mellitus, hypertension, hypothyroidism, dyslipidemia. Plan: She will have physical, occupational, and speech therapy 3.5 hours, 5 of 7 days. She will hav e aggressive management of her comorbid conditions including diabetes mellitus, hypertension, dyslipi demia, hypothyroidism. Medications were continued. She did have an EKG, addressed her heart rate, w hich showed a sinus rhythm, currently at a good control of her heart rate. Comorbidities That Are Impacting Rehabilitation: She does have the episodes of tachycardia and histo ry, will be monitoring the patient's heart rate on EKG as appropriate. Cardiology consult if needed will be addressed. Blood sugars maybe end up being low. She does have however currently elevated bl ood sugars. She will be given glucose replacement if need be. Her creatinine is slightly elevated a t 1.64, consistent with mild dehydration. She will be hydrated and she also has some chronic renal i nsufficiency that will be addressed as well. Rehab Specific Plan: Ms. Jones will have physical, occupational, and speech therapy 3.5 hours, 5 of 7 days, to improve her ability to transfer from a bed to chair, to a wheelchair, and a walker, to go on and off the toilet, in and out of shower, to dress upper and lower body, and to don and doff her f ootwear. Ms. Jones has a good understanding of the process of admission to the inpatient rehabilitation unit a nd how she will benefit from physical, occupational, and speech therapy. She will have 24 hours a da y, 7 days a week, skilled rehabilitation and nursing, daily physician evaluation and management, and manager social media evaluation and management for discharge planning, home equipment, and to continue wit h therapy. If need be, additional help will be sought from the Hospitalist Service. Barriers To Discharge: At this point, barriers may include potential for bleeding, for infection, fo r pneumonia, and for deep vein thrombus. Those will be addressed with medications which have been no joanna. In terms of the ongoing medications, which she will be continuing include Zoloft, Altace, Karen nix, Toprol, melatonin, Robaxin. She will continue with magnesium oxide and Synthroid. Continue wit h diabetes mellitus management, gabapentin for pain, Cardura, Tricor, Flonase. Continue with aspirin and Eliquis as noted. Length Of Stay: Expected about 10 to 12 days. Prognosis: Good. Code Status: Full code. Rehab Specific Goals: 1. Become independent with upper and lower body dressing and donning and doffing footwear. 2. Independently mobilize 250 feet with a rolling walker and with wheelchair and up and down 10 steps . 3. Independently perform all activities of daily living. 4. Independently make safe decisions about safety awareness and medication management and to follow u p with physicians and follow up with Home Health as appropriate. The above goals were discussed with Ms. Jones and she is in agreement. By signing this document, I acknowledge I personally performed a full physical examination on Ms. Damien balderas no later than 24 hours after her admission to the inpatient rehabilitation unit and determined gilbert t she is able to tolerate the above course of treatment at an intensive level for reasonable period o f time. A detailed individualized plan of care for her will be completed by hospital day 4 based on preadmission screen, history and physical, and therapy evaluations. ALMA/YUKI Voice ID: [id number]
[2024-10-14 05:27] LABS: Absolute Basophils 0.1 K/uL (0-0.5); Absolute Eosinophils 0.2 K/uL (0-0.5); Absolute Lymphocytes (CBC) 1.9 K/uL (0.7-4.9); Absolute Monocytes 0.6 K/uL (0.1-1.3); Absolute Neutrophil 4.2 K/uL (1.8-8.0); Basophils % 0.8 % (0-1.3); Hematocrit 31.2 % (36.0-45.0); Hemoglobin 10.5 g/dL (12.0-15.0); Lymphocytes % 27.7 % (15.3-44.8); MCH 28.8 pg (27.0-35.0); MCHC 33.7 g/dL (32.0-36.0); MCV 85.5 fL (80-100); MPV 9.4 fL (7.6-11.3); Monocytes % 8.3 % (3.3-12.3); Neutrophils % 60.2 % (41.7-73.7); Platelets 139 thou/uL (152-406); RBC Red Blood Cell Count 3.65 M/uL (3.86-4.86); Red Cell Distribution Width 14.3 % (12.1-15.2)
[2024-10-14 05:56] LABS: Albumin 2.7 g/dL (3.4-5.0); Anion Gap 6.4 mEq/L (5.0-15.0); Magnesium 1.6 mg/dL (1.6-2.4); Potassium 4.4 mEq/L (3.5-5.1); Prealbumin 13.8 mg/dL (20-40)
[2024-10-14] MEDS ORDERED: INSULIN 70/30 100 UNITS/ML SQ SCH (08:00)
[2024-10-14] MEDS: INSULIN 70/30 100 UNITS/ML SQ SCH (08:34)
--- NOTE | 2024-10-14 13:58 | P.RH.PN ---
Estimated Length of Stay: 10 Expected Discharge Date: 10/21/24 Discharge Disposition Plan: Home Family Support: Yes Care Home Goal: Mobility, Transfers, Self Care Vital Signs: Last Vital Signs Temp 98.3 F 10/14/24 07:05 Pulse 55 10/14/24 08:32 Resp 18 10/14/24 07:05 BP 121/58 L 10/14/24 08:32 Pulse Ox 93 10/14/24 07:05 Laboratory: Laboratory Last Values WBC 7.00 thou/uL (4.3-10.9) 10/14/24 05:15 RBC 3.65 M/uL (3.86-4.86) L 10/14/24 05:15 Hgb 10.5 g/dL (12.0-15.0) L 10/14/24 05:15 Hct 31.2 % (36.0-45.0) L 10/14/24 05:15 MCV 85.5 fL (80-100) 10/14/24 05:15 MCH 28.8 pg (27.0-35.0) 10/14/24 05:15 MCHC 33.7 g/dL (32.0-36.0) 10/14/24 05:15 RDW 14.3 % (12.1-15.2) 10/14/24 05:15 Plt Count 139 thou/uL (152-406) L 10/14/24 05:15 MPV 9.4 fL (7.6-11.3) 10/14/24 05:15 Neutrophils % 60.2 % (41.7-73.7) 10/14/24 05:15 Lymphocytes % 27.7 % (15.3-44.8) 10/14/24 05:15 Monocytes % 8.3 % (3.3-12.3) 10/14/24 05:15 Eosinophils % 3.0 % (0-4.4) 10/14/24 05:15 Basophils % 0.8 % (0-1.3) 10/14/24 05:15 Absolute Neutrophils 4.2 K/uL (1.8-8.0) 10/14/24 05:15 Absolute Lymphocytes 1.9 K/uL (0.7-4.9) 10/14/24 05:15 Absolute Monocytes 0.6 K/uL (0.1-1.3) 10/14/24 05:15 Absolute Eosinophils 0.2 K/uL (0-0.5) 10/14/24 05:15 Absolute Basophils 0.1 K/uL (0-0.5) 10/14/24 05:15 Sodium 139 mEq/L (136-145) 10/14/24 05:15 Potassium 4.4 mEq/L (3.5-5.1) 10/14/24 05:15 Chloride 107 mEq/L (98-107) 10/14/24 05:15 Carbon Dioxide 30 mEq/L (21-32) 10/14/24 05:15 Anion Gap 6.4 mEq/L (5.0-15.0) 10/14/24 05:15 BUN 34 mg/dL (7-18) H 10/14/24 05:15 Creatinine 1.81 mg/dL (0.55-1.02) H 10/14/24 05:15 Est GFR (CKD-EPI) 29 ml/min (=/>90) L 10/14/24 05:15 Glucose 152 mg/dL (74-106) H 10/14/24 05:15 POC Glucose 123 mg/dL (65-120) H 10/14/24 11:24 Hemoglobin A1c 7.6 % (4.2-6.3) H 10/13/24 05:39 Calcium 9.4 mg/dL (8.5-10.1) 10/14/24 05:15 Magnesium 1.6 mg/dL (1.6-2.4) 10/14/24 05:15 Albumin 2.7 g/dL (3.4-5.0) L 10/14/24 05:15 Prealbumin 13.8 mg/dL (20-40) L 10/14/24 05:15 Urine Color Yellow (Yellow) 10/12/24 23:44 Urine Clarity Extremely turbid (Clear) H 10/12/24 23:44 Urine pH 5.5 (5.0-7.0) 10/12/24 23:44 Ur Specific [place] 1.019 (1.005-1.030) 10/12/24 23:44 Glucose (UA)(Auto) Negative (Negative) 10/12/24 23:44 Urine Ketones Negative (Negative) 10/12/24 23:44 Urine Blood Negative (Negative) 10/12/24 23:44 Urine Nitrite Negative (Negative) 10/12/24 23:44 Urine Bilirubin Negative (Negative) 10/12/24 23:44 Urine Urobilinogen Normal (Normal) 10/12/24 23:44 Ur Leukocyte Esterase 25 Jona/uL (Negative) H 10/12/24 23:44 Urine RBC None seen /HPF (None Seen) 10/12/24 23:44 Urine WBC <5 /HPF (<5) 10/12/24 23:44 Ur Squamous Epith Cells <5 /HPF (None Seen) 10/12/24 23:44 U Non-Squamous Epi Cells <5 /HPF (None Seen) 10/12/24 23:44 Urine Bacteria 20-50 /HPF (<20) H 10/12/24 23:44 Urine Culture Reflexed Not needed 10/12/24 23:44 Urine Total Protein 1+ (Negative) H 10/12/24 23:44 Weight: 202 lb Wound Present: No Negative Pressure Wound Therapy Present: No Physician Update: Labs reviewed and are stable. Still has left visual field deficit. Will restart statin. WC 150' with CGA. Limited with dizziness and lightheadedness. Now CGA with most ADLs. Right sciatic pain is still present. Will double gabapentin to 300 mg BID. 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 Please see the Rehabilitation Signature page for all necessary signatures.
[2024-10-14] MEDS: ATORVASTATIN 20 MG TAB PO SCH (20:12)
[2024-10-14] MEDS: GABAPENTIN 300 MG CAP PO SCH (20:12)
--- NOTE | 2024-10-17 17:52 | RAD REPORT ---
Exam:Hip Right 2 View HISTORY: Right hip pain FINDINGS: No fracture or dislocation seen. Mild osteoarthritis involving the right hip consisting of mild joint space narrowing and subchondral sclerosis. Bones appear somewhat osteoporotic. If the patient has clinical symptoms to suggest an occult fracture MRI would be recommended
--- NOTE | 2024-10-17 23:37 | PN ---
Date of Progress Note: 10/17/2024 Time Of Service: 1:25 p.m. Subjective: Ms. Jones is lying comfortably in bed. She is in no significant distress. Reports some improvement in her left visual field deficit and incoordination from her right STITCHER OPERATOR stroke. The donna ent and family had a question about right hip pain as she had reportedly had the pain for quite a whi le and her primary care physician, Dr. Jones, is planning to see her after her discharge. Two-view x-ray was ordered of the right hip. The study done today showed mild osteoarthritis involving the r ight hip consisting of mild joint space narrowing and subchondral sclerosis. Bones appear osteoporot ic. Objective: She reports some mild pain in the right lower extremity. She says it may be sciatic type pain and does radiate down the right leg as she does mobilization exercises. Otherwise, she denies any new findings in terms of her objective. Physical Examination: Vital Signs: Blood pressure ranged from 124 to 168 systolic to 64 to 85 diastolic, respiratory rate ranged from 16 to 18, and pulse from 51 to 59, temperature 97.7, oxygen saturation 92%. Weight 202 p ounds. Height 5 feet 4 inches, BMI 34.7. General: Again, Ms. Jones is resting comfortably in bed. She covered and pulling over up to her NONO k and is waiting for her next therapy session. HEENT: She is normocephalic, atraumatic. Sclerae anicteric. Oropharynx pink, moist. Neck: Supple. Chest: Clear. Extremities: No clubbing, cyanosis, or edema. Neuro: She has decreased visual field in the left lower quadrant and some incoordination in upper ex tremities. Laboratory Studies: Blood sugars ranged from 136 to 155. X-ray/imaging: As noted above. Progress Made With Physical And Occupational Therapy: Today with her physical therapy, she was able to complete bed mobility with contact guard assistance, [id number] transfers and [id number]-[id number] tra nsfers done with contact guard to minimum assistance. She ambulated 250 feet twice with contact guar d assistance with a rolling walker. She did feel somewhat dizzy. Lowest blood pressure 102/64, puls e of 61. She is recommended to wear abdominal binder and MARILEE hose as she did have some orthostatic a ssist as she ambulated. With occupational therapy, supervision for bed mobility, bed to wheelchair t ransfer and toilet to wheelchair transfer, [id number] transfers all done with supervision. Assessment And Plan: Ms. Jones is a 74-year-old patient in the rehabilitation unit with right STITCHER OPERATOR st roke with left visual field deficit, left-sided incoordination. She did have some pain in the right hip and the x-ray showed no fractures. She has arthritic changes with loss of joint space. She did have some episodes of orthostatic hypotension as she was mobilizing. She will have abdominal binder and MARILEE hose and her antihypertensive medications may be decreased as she is exercising more regularl y that is very helpful. The beta-raysa maybe cut back, it is 25 mg daily. However, it is noted th at lying this evening, blood pressure is 168/58. Ms. Jones is a 74-year-old patient as noted and she has some episodes of hypotension. Her additional comorbid conditions are stably managed. She has mild vertigo, insomnia, and depression. She will c ontinue with all therapy and all medications as noted. ALMA/MODL Voice ID: [id number] Report ID: [id number]
[2024-10-18] MEDS: ONDANSETRON 4 MG (ODT) TAB PO PRN (03:21)
[2024-10-18 05:28] LABS: Absolute Basophils 0.1 K/uL (0-0.5); Absolute Eosinophils 0.3 K/uL (0-0.5); Absolute Lymphocytes (CBC) 1.9 K/uL (0.7-4.9); Absolute Monocytes 0.6 K/uL (0.1-1.3); Absolute Neutrophil 5.1 K/uL (1.8-8.0); Basophils % 0.7 % (0-1.3); Eosinophils % 3.2 % (0-4.4); Hematocrit 33.2 % (36.0-45.0); Hemoglobin 11.2 g/dL (12.0-15.0); Lymphocytes % 23.4 % (15.3-44.8); MCH 28.9 pg (27.0-35.0); MCHC 33.8 g/dL (32.0-36.0); MCV 85.4 fL (80-100); MPV 9.3 fL (7.6-11.3); Monocytes % 8.1 % (3.3-12.3); Neutrophils % 64.6 % (41.7-73.7); Nucleated Red Blood Cells % 0.1 % (0-0); Platelets 148 thou/uL (152-406); RBC Red Blood Cell Count 3.89 M/uL (3.86-4.86); Red Cell Distribution Width 14.3 % (12.1-15.2)
[2024-10-18 05:48] LABS: Albumin 3.1 g/dL (3.4-5.0); Anion Gap 8.1 mEq/L (5.0-15.0); Magnesium 1.8 mg/dL (1.6-2.4); Potassium 4.1 mEq/L (3.5-5.1)
--- NOTE | 2024-10-18 10:50 | RAD REPORT ---
EXAM: CT brain without contrast HISTORY: double vision COMPARISON: 10/09/2024 TECHNIQUE: Multiple contiguous axial images were obtained and a CT of the brain without contrast. Sag ittal and coronal reformats were performed. One or more of the following dose reduction techniques were used: Automated exposure control, adjust ment of the mA and/or kV according to patient size, and/or iterative reconstruction. FINDINGS: No evidence of hydrocephalus, intracranial hemorrhage, or extra-axial fluid collection. Moderate brain atrophy with moderate periventricular and deep white matter chronic microvascular isc hemic changes present. No evidence of midline shift or areas of brain edema. The calvarium is intact. The visualized paranasal sinuses and mastoid air cells are essentially clear . IMPRESSION: No evidence of acute intracranial abnormality.
[2024-10-18] MEDS: NA CHLORIDE 0.9% 1,000 ML IV SCH ×2 (11:00→18:26)
[2024-10-18 17:23] LABS: Specific Gravity 1.013 (1.005-1.030); Sqamous Epithelial <5 /HPF (None Seen); Urine Bacteria <20 /HPF (<20); Urine Bilirubin NEGATIVE (Negative); Urine Blood Negative (Negative); Urine Clarity Extremely Turbid (Clear); Urine Color Light-Yellow (Yellow); Urine Glucose NEGATIVE (Negative); Urine Ketones NEGATIVE (Negative); Urine Micro Reflex YN NO BILL MICROSCOPIC; Urine Mucus Slight /HPF (None Seen); Urine Nitrite NEGATIVE (Negative); Urine Protein TRACE (Negative); Urine RBC <5 /HPF (None Seen); Urine Urobilinogen Normal (Normal); Urine WBC Clump Rare /HPF (None Seen); Urine Yeast (Budding) Trace /HPF (None Seen)
--- NOTE | 2024-10-18 19:36 | RAD REPORT ---
EXAMINATION: TWO VIEW CHEST XR CLINICAL INDICATION: Female, 74 years old. [facility] MA[facility] R/O PNA TECHNIQUE: 2 view radiographs of the chest were performed. COMPARISON: 10/12/2024 FINDINGS: The lungs are well inflated and clear. No pneumothorax or sizable effusion. The heart is normal in si ze. Mediastinal contours are unremarkable. IMPRESSION: No acute or significant abnormalities.
--- NOTE | 2024-10-18 22:17 | PN ---
Date of Progress Note: 10/18/2024 Time Of Service: 1:25 p.m. Subjective: Ms. Jones is lying in bed. Today, she had some very low blood pressures and some more l ethargy. A repeat CT scan of the head was done to rule out any hemorrhagic conversion to her posteri or circulation stroke which she had prior to coming to the unit. CT scan of the head showed no evide nce of any acute intracranial abnormalities. There was moderate brain atrophy with moderate perivent ricular deep white matter chronic microvascular disease with ischemic changes. No evidence of midlin e shift. No reports of any ongoing bleeding or any abnormalities there. She also had chest x-ray do ne, results are pending and yesterday had hip x-ray on the right because of pain in the lower back an d hip and that did not show any significant findings except for arthritic changes, degenerative joint disease. Objective: Again, some right hip pain. Some mild stiffness and lethargy and dizziness, blurred visi on, especially on sitting up. She does have the difficulty with conjugate eye vision following the s troke and decrease of the left visual field, which is again following her stroke. Physical Examination: Vital Signs: She did have orthostatic blood pressures while lying 160/89, pulse 68, while sitting 12 6/72, pulse of 60 and while standing, she was symptomatic at 94/53 with pulse of 60, respiratory rate 16 to 20, temperature 97.9, oxygen saturation 97%. General: Again, Ms. Jones at the time of evaluation, she was sitting at the side of the bed, mild di zziness she reported. Otherwise, she does have mild loss in the left lower quadrant of her visual fi eld. She has some diplopia as noted, some difficulty with right eye crossing the midline. Otherwise , she has no focal findings in terms of face, arm, and leg numbness and weakness. Laboratory Studies: White blood cell count 7.9, hemoglobin 10.2, platelets 148. Sodium 139, potassi um 4.1, chloride 104, BUN 38, creatinine 1.46, glucose ranged from 104 to 149, calcium 9.6, magnesium 1.8, albumin 3.1, prealbumin 16. Urinalysis was repeated today, which shows extreme turbidity, trac e budding yeast, trace protein, but otherwise was negative. Progress Made With Physical And Occupational Therapy: Today with physical therapy, she did start to work with the therapist, but had significant orthostatic changes and as a result, therapy for today w as put on hold. She will be resuming full therapy tomorrow as she has some increased fluid. She did receive IV fluid 500 cc bolus and 120 cc an hour after she complete the 1 L. Again, therapy will be put on hold due to the significant orthostatic changes. She did not complete her 3 hours of therapy a day, but that will be done tomorrow. With occupational therapy, she did earlier [id number] tra nsfers with contact guard assistance and noted blood pressures were down to 91/56, heart rate of 50 w hile sitting on the bed and it was also 91/56, heart rate of 50 while sitting after about 8 minutes, and subsequently after 30 minutes, 107/57 and she was able to lie back down. Assessment And Plan: Ms. Jones is a 74-year-old patient in the rehabilitation unit with right community chest officer ior cerebral artery stroke that produce some deficits of visual field and extraocular movements were depressed as well with difficulty crossing the midline with the right eye. She did have significant orthostatic hypotension today and as a result, her therapy was put on hold for completing the 3 hours of therapy a day. She will be making up therapy in the morning and throughout the day tomorrow. Ot herwise, she still has decreased mobility, decreased physical functioning in addition to the episodes of hypotension. She does have MARILEE hose and abdominal binder to help mitigate that. Other comorbidi ties do include dyslipidemia, seasonal allergies, neuropathic pain, she also will have the midodrine now added at 5 mg at 8 a.m. and at noon to support blood pressure. She has Zoloft for depression and again receiving IV fluids and therapy will be resuming tomorrow with mitigating changes to support b lood pressure along with abdominal binders, MARILEE hose, midodrine, some IV fluids, and holding on any a ntihypertensive medications if systolic blood pressure is less than 120. LB/MODL Voice ID: [id number] Report ID: [id number]
[2024-10-19] MEDS ORDERED: MIDODRINE HCL 5 MG TABLET PO SCH (08:00)
[2024-10-19] MEDS: MIDODRINE HCL 5 MG TABLET PO SCH ×2 (08:24→12:41)
--- NOTE | 2024-10-19 13:55 | P.RH.PN ---
Estimated Length of Stay: 10 Expected Discharge Date: 10/21/24 Discharge Disposition Plan: Home Family Support: Yes [facility] Goal: Mobility, Transfers, Self Care Vital Signs: Last Vital Signs Temp 98.0 F 10/19/24 08:13 Pulse 51 10/19/24 08:13 Resp 16 10/19/24 08:13 BP 115/64 10/19/24 08:13 Pulse Ox 92 10/19/24 08:13 Laboratory: Laboratory Last Values WBC 7.90 thou/uL (4.3-10.9) 10/18/24 05:07 RBC 3.89 M/uL (3.86-4.86) 10/18/24 05:07 Hgb 11.2 g/dL (12.0-15.0) L 10/18/24 05:07 Hct 33.2 % (36.0-45.0) L 10/18/24 05:07 MCV 85.4 fL (80-100) 10/18/24 05:07 MCH 28.9 pg (27.0-35.0) 10/18/24 05:07 MCHC 33.8 g/dL (32.0-36.0) 10/18/24 05:07 RDW 14.3 % (12.1-15.2) 10/18/24 05:07 Plt Count 148 thou/uL (152-406) L 10/18/24 05:07 MPV 9.3 fL (7.6-11.3) 10/18/24 05:07 Neutrophils % 64.6 % (41.7-73.7) 10/18/24 05:07 Lymphocytes % 23.4 % (15.3-44.8) 10/18/24 05:07 Monocytes % 8.1 % (3.3-12.3) 10/18/24 05:07 Eosinophils % 3.2 % (0-4.4) 10/18/24 05:07 Basophils % 0.7 % (0-1.3) 10/18/24 05:07 Absolute Neutrophils 5.1 K/uL (1.8-8.0) 10/18/24 05:07 Absolute Lymphocytes 1.9 K/uL (0.7-4.9) 10/18/24 05:07 Absolute Monocytes 0.6 K/uL (0.1-1.3) 10/18/24 05:07 Absolute Eosinophils 0.3 K/uL (0-0.5) 10/18/24 05:07 Absolute Basophils 0.1 K/uL (0-0.5) 10/18/24 05:07 Sodium 139 mEq/L (136-145) 10/18/24 05:07 Potassium 4.1 mEq/L (3.5-5.1) 10/18/24 05:07 Chloride 104 mEq/L (98-107) 10/18/24 05:07 Carbon Dioxide 31 mEq/L (21-32) 10/18/24 05:07 Anion Gap 8.1 mEq/L (5.0-15.0) 10/18/24 05:07 BUN 38 mg/dL (7-18) H 10/18/24 05:07 Creatinine 1.46 mg/dL (0.55-1.02) H 10/18/24 05:07 Est GFR (CKD-EPI) 38 ml/min (=/>90) L 10/18/24 05:07 Glucose 149 mg/dL (74-106) H 10/18/24 05:07 POC Glucose 137 mg/dL (65-120) H 10/19/24 11:22 Hemoglobin A1c 7.6 % (4.2-6.3) H 10/13/24 05:39 Calcium 9.6 mg/dL (8.5-10.1) 10/18/24 05:07 Magnesium 1.8 mg/dL (1.6-2.4) 10/18/24 05:07 Albumin 3.1 g/dL (3.4-5.0) L 10/18/24 05:07 Prealbumin 16.0 mg/dL (20-40) L 10/18/24 05:07 Urine Color Light-yellow (Yellow) 10/18/24 17:04 Urine Clarity Extremely turbid (Clear) H 10/18/24 17:04 Urine pH 6.0 (5.0-7.0) 10/18/24 17:04 Ur Specific [place] 1.013 (1.005-1.030) 10/18/24 17:04 Glucose (UA)(Auto) Negative (Negative) 10/18/24 17:04 Urine Ketones Negative (Negative) 10/18/24 17:04 Urine Blood Negative (Negative) 10/18/24 17:04 Urine Nitrite Negative (Negative) 10/18/24 17:04 Urine Bilirubin Negative (Negative) 10/18/24 17:04 Urine Urobilinogen Normal (Normal) 10/18/24 17:04 Ur Leukocyte Esterase Negative Jona/uL (Negative) 10/18/24 17:04 Urine RBC <5 /HPF (None Seen) 10/18/24 17:04 Urine WBC 5-10 /HPF (<5) 10/18/24 17:04 Urine WBC Clumps Rare /HPF (None Seen) 10/18/24 17:04 Ur Squamous Epith Cells <5 /HPF (None Seen) 10/18/24 17:04 U Non-Squamous Epi Cells <5 /HPF (None Seen) 10/12/24 23:44 Urine Bacteria <20 /HPF (<20) 10/18/24 17:04 Urine Mucus Slight /HPF (None Seen) 10/18/24 17:04 Urine Yeast (Budding) Trace /HPF (None Seen) H 10/18/24 17:04 Urine Culture Reflexed Not needed 10/12/24 23:44 Urine Total Protein Trace (Negative) H 10/18/24 17:04 Weight: 202 lb Wound Present: No Closed Surgical Incision Present: No Negative Pressure Wound Therapy Present: No Physician Update: Labs reviewed and are stable except mild dehydration. BIMS 15, right hip is 4/10 pain addressed with multiple modalities. Still has diplopia and blurred vision. She received all 900 minutes of therapy this week. Doing well with PT. Met 5/6 STG and all LTG. Independent transfers and bed mobility. Mild dizzness with ambulation. WC 250' independent. With OT she is doing well. Met all OT goals and is independent with all ADs Summary: Patient's care plan and detention goals have been reviewed and revised as necessary. Please see the Rehabilitation Signature page for all necessary signatures.
[2024-10-19] MEDS: DOXAZOSIN 2 MG TAB PO SCH (20:12)
[2024-10-19] MEDS: METOPROLOL XL 25 MG TAB PO SCH (20:12)
[2024-10-19 20:13] VITALS: BP 191/75
[2024-10-20 06:50] VITALS: TEMP 97.2
[2024-10-20] MEDS ORDERED: METOPROLOL XL 25 MG TAB PO SCH (08:00)
--- NOTE | 2024-10-20 11:50 | EKG ---
Test Date: 2024-10-18 Test Time: 10:00:23 Thermocouple Tester: GORDO MEASUREMENT RESULTS: Intervals: Rate: 54 MD: 106 QRSD: 126 QT: 478 QTc: 453 [place]: P: 31 MD: 106 QRS: 48 T: 40 INTERPRETIVE STATEMENTS: Sinus bradycardia with short MD Right bundle branch block Abnormal ECG Compared to ECG 10/12/2024 16:23:11 Sinus rhythm no longer present Electronically Signed On 10-20-24 11:44:09 CDT by Jose Elias Nogueira
== END 2024-10-20 10:15 | disposition home health service (06) | DRG 57 ==
LOC: 5TH 20:52
PROVIDERS: ADMIT Psychiatry & Neurology Neurology with Special Qualifications in Child Neurology; ATTEND Psychiatry & Neurology Neurology with Special Qualifications in Child Neurology
DX: I69.398 Other sequelae of cerebral infarction (principal); I69.354 Hemiplegia and hemiparesis following cerebral infarction affecting left non-dominant side; H53.452 Other localized visual field defect, left eye; R27.8 Other lack of coordination; R26.89 Other abnormalities of gait and mobility; H53.2 Diplopia; E86.0 Dehydration; I95.1 Orthostatic hypotension; E03.9 Hypothyroidism, unspecified; E78.5 Hyperlipidemia, unspecified; M25.551 Pain in right hip; G47.00 Insomnia, unspecified; F32.A Depression, unspecified; R53.83 Other fatigue; I12.9 Hypertensive chronic kidney disease with stage 1 through stage 4 chronic kidney disease, or unspecified chronic kidney disease; E11.22 Type 2 diabetes mellitus with diabetic chronic kidney disease; N18.9 Chronic kidney disease, unspecified
CPT/HCPCS: 36415; 70450; 71046; 80048; 81001; 82040; 82947; 83036; 83735; 84134; 85025; 92523; 93005; 94010; 97110; 97112; 97116; 97163; 97165; 97530; 97542; J1815; J2003; J7030; J8597; Q0162